=== PATIENT | male | born 1945 | race Hispanic/Latino ===

== ENCOUNTER 2017-08-17 09:49 | Inpatient (IN) | payer MEDICARE ==
[2017-08-17 11:49] VITALS: BMI 25.8
[2017-08-17] MEDS ORDERED: Lactated Ringer's 1,000 ML IV ONE ×2 (12:30→18:41)
[2017-08-17] MEDS ORDERED: Bacitracin Ointment 30 GM TUBE ONE (15:07)
[2017-08-17] MEDS ORDERED: Absorbable Gelatin Sponge Size 100 ONE (15:07)
[2017-08-17] MEDS ORDERED: Thrombin Topical 5,000 Int Units Spray Kit ONE (15:07)
--- NOTE | 2017-08-17 15:26 | CP.PCM.HP ---
History of Present Illness - History of Present Illness History of Present Illness: CC: DRAINING OP SITE L HIP HPI: 72M PMH s/p L partial hip 2013, s/p fall same hip 2016 with multiple repairs, s/p draining wound for one month, does not remember which antibiotics patient was taking prior to I/D today. Pt states draining is worsening, not responding to outpatient therapy. Pt cleared by his forest resource specialist as outpatient, recent stress test showed no ischemic changes. He is low to moderate risk for moderate risk surgery, medically stable for OR. ROS: per HPI all other systems reviewed and negative PMSH: nonobstructive CAD, nonischemic cardiomyopathy, HIV, moderate COPD, pulmonary fibrosis, HTN, HLD, BPH, L Partial Hip 2013, L hip ORIF 2016 secondary to multiple fx after fall, colon resection?, appendectomy, partial lung resection. FH: ovarian and lung CA SH: denies tobacco etoh ivdu currently. Former 2 ppd smoker for several decades , quit 9 years ago Allergies: morphine Present on Admission - Present on Admission Any Indicators Present on Admission: No Past Patient History - Past Medical History & Family History Past Medical History?: Yes - Past Social History Smoking Status: Former Smoker - CARDIAC Hx Cardiac Disorders: Yes Hx Heart Attack: Yes Hx Hypercholesterolemia: Yes Hx Hypertension: Yes Other/Comment: Claimed had 2 heart attacks before - PULMONARY Hx Respiratory Disorders: Yes Hx Pneumonia: Yes Other/Comment: scarred lung tissue left lobe, lung resection - NEUROLOGICAL Hx Neurological Disorder: No Hx Transient Ischemic Attacks (TIA): Yes - HEENT Hx HEENT Problems: No Hx Cataracts: Yes (L eye Catatract surgery) - RENAL Hx Chronic Kidney Disease: No - ENDOCRINE/METABOLIC Hx Endocrine Disorders: No - HEMATOLOGICAL/ONCOLOGICAL Hx Blood Disorders: Yes Hx Blood Transfusions: Yes Hx Human Immunodeficiency Virus (HIV): Yes (dx 2004) - INTEGUMENTARY Hx Dermatological Problems: No - MUSCULOSKELETAL/RHEUMATOLOGICAL Hx Musculoskeletal Disorders: Yes Hx Arthritis: Yes (L Hip-Had L hip replacement 2014) Hx Falls: Yes - GASTROINTESTINAL Hx Gastrointestinal Disorders: Yes Hx Bowel Surgery: Yes Hx Diverticulitis: Yes Hx Hemorrhoids: Yes - GENITOURINARY/GYNECOLOGICAL Hx Genitourinary Disorders: No Hx Prostate Problems: Yes (On Flomax) - PSYCHIATRIC Hx Psychophysiologic Disorder: No Hx Substance Use: No - SURGICAL HISTORY Hx Surgeries: Yes Hx Appendectomy: Yes (AGE 3) Hx Cardiac Catheterization: Yes Hx Orthopedic Surgery: Yes (L Hip replacement) Other/Comment: bowel resection, pneumonectomy left lobe - ANESTHESIA Hx Anesthesia: Yes Hx Anesthesia Reactions: No Hx Malignant Hyperthermia: No Has any member of the family had a problem w/ anesthesia?: No Meds Allergies/Adverse Reactions: Allergies Allergy/AdvReac Type Severity Reaction Status Date / Time morphine Allergy ITCHING Verified 08/20/16 07:57 morp Allergy Intermediate ITCHING Uncoded 08/20/16 07:57 Physical Exam - Constitutional Appears: Non-toxic, No Acute Distress - Head Exam Head Exam: ATRAUMATIC, NORMOCEPHALIC - Eye Exam Eye Exam: EOMI, Normal appearance, PERRL - ENT Exam ENT Exam: Mucous Membranes Moist, Normal Oropharynx - Respiratory Exam Respiratory Exam: Clear to Auscultation Bilateral, NORMAL BREATHING PATTERN - Cardiovascular Exam Cardiovascular Exam: RRR, +S1, +S2 - GI/Abdominal Exam GI & Abdominal Exam: Normal Bowel Sounds, Soft. absent: Mass, Organomegaly, Tenderness - Extremities Exam Extremities exam: Positive for: normal capillary refill, pedal pulses present - Back Exam Back exam: absent: CVA tenderness (L), CVA tenderness (R) - Neurological Exam Neurological exam: Alert, Oriented x3 - Psychiatric Exam Psychiatric exam: Normal Affect, Normal Mood - Skin Skin Exam: Dry, Warm Results - Vital Signs Recent Vital Signs: Last Vital Signs Temp 99.4 F 08/17/17 11:00 Pulse 83 08/17/17 11:00 Resp 18 08/17/17 11:00 BP 101/64 08/17/17 11:00 Pulse Ox 95 08/17/17 11:00 Assessment & Plan - Assessment and Plan (Free Text) Plan: 72M PMH s/p L partial hip 2013, s/p fall same hip 2016 with multiple repairs, s /p draining wound for one month, does not remember which antibiotics patient was taking prior to I/D today. Pt states draining is worsening, not responding to outpatient therapy. Pt cleared by his forest resource specialist as outpatient, recent stress test showed no ischemic changes. He is low to moderate risk for moderate risk surgery, medically stable for OR. s/p I/D L hip Ortho Consult: Dr. Gutierrez pain control IC q1h Infectious Disease consult: Dr. Acharya nonobstructive CAD, nonischemic cardiomyopathy HTN, HLD cont home meds: Carvedilol [Coreg] 6.25 mg PO BID Pravastatin Sodium [Pravachol] 80 mg PO HS Furosemide [Lasix] 20 mg PO DAILY Lisinopril [Zestril] 40 mg PO DAILY Spironolactone [Aldactone] 25 mg PO DAILY HIV cont home meds: Dolutegravir Sodium [Tivicay] 50 mg PO DAILY Emtricitabine/Tenofov Alafenam [Descovy 200-25 mg Tablet] 25 - 200 mg PO DAILY moderate COPD pulmonary fibrosis stable BPH Continue home meds: Tamsulosin [Flomax] 0.4 mg PO DAILY VTE ppx per orthopedic surgery
[2017-08-17] MEDS ORDERED: Succinylcholine 200 mg/10 ml Inj IV ONE (15:45)
[2017-08-17] MEDS ORDERED: Rocuronium 10 mg/ml (5 ml) ONE (15:45)
[2017-08-17] MEDS ORDERED: Propofol 10 mg/ml Inj (20 ML) ONE (15:45)
[2017-08-17] MEDS ORDERED: Lidocaine 1% 5ml Abboject IV ONE (15:46)
[2017-08-17] MEDS ORDERED: Vancomycin 1 g Inj IVPB ONE (18:00)
[2017-08-17] MEDS ORDERED: Gentamicin 80 mg/2mL Inj. IVPB ONE (18:00)
[2017-08-17 18:17] LABS: FLUID TYPE SYNOVIAL FLUID
[2017-08-17] MEDS ORDERED: HYDROmorphone 0.5 mg/0.5 ml ISec IVP PRN (18:53)
--- NOTE | 2017-08-17 18:59 | PCM.SURG1 ---
Surgeon's Initial Post Op Note - Surgeon's Notes Surgeon: Matt Electrologist: GLORIA Garcia Type of Anesthesia: General Endo Anesthesia Administered By: DR Cortez Pre-Operative Diagnosis: septic trcohanteric bursitis L hip Operative Findings: as above. no evidence for deep sepsis Post-Operative Diagnosis: as above Operation Performed: excision trochanteric bursa(septic). Removal hardware ( screw)- deep. excision skin, subcuateous tissue and muscle. applx wound vac. insertiobn of abio impregnated beads Specimen/Specimens Removed: bursa,skin, subcutaneous tissue/screw Estimated Blood Loss: EBL {In ML}: 25 Blood Products Given: N/A Drains Used: Wound Vac Post-Op Condition: Good Date of Surgery/Procedure: 08/17/17 Time of Surgery/Procedure: 17:15 (time in room/anaaetshesia indcution time 1650)
[2017-08-17 19:15] LABS: SYNOVIAL FLUID MONO/MACROPHAGE 1 % (0-0)
[2017-08-17 19:16] LABS: SF GROSS APPEARANCE BLOODY (CLEAR)
--- NOTE | 2017-08-17 20:33 | CP.PCM.PN ---
Subjective - Date & Time of Evaluation Date of Evaluation: 08/17/17 Time of Evaluation: 20:30 - Subjective Subjective: I D NOTE PATIENT IS IMMEDIATELY POST OP SEEN IN RECOVERY POST EXCISION TROCHANTERIC BURSA REMOVAL OF HARDWARE(SCREW) INSERTION ANTIBIOTIC BEADS STATES HAD SIGNIFICANT DRAINAGE,FEVER,CHILLS OVER PAST MONTH HAVE GIVEN I DOSE VANCOMYCIN WILL START MEROPENEM TOMORROW RE EVALUATE RX AFTER LABS DONE Objective - Vital Signs/Intake and Output Vital Signs (last 24 hours): Temp Pulse Resp BP Pulse Ox 99.1 F 84 18 125/71 95 08/17/17 19:55 08/17/17 19:55 08/17/17 19:55 08/17/17 19:55 08/17/17 19:55 Intake and Output: 08/17/17 08/18/17 18:59 06:59 Intake Total 500 Output Total 0 Balance 500 0 - Medications Medications: Current Medications Carvedilol (Coreg) 6.25 mg PO BID [facility] Dolutegravir Sodium (Tivicay) 50 mg PO DAILY [facility] Stop: 08/18/17 09:01 Furosemide (Lasix) 20 mg PO DAILY [facility] Home Med (Emtricitabine/Tenofov Alafenam [Descovy 200-25 Mg Tablet]) 25 - 200 mg PO DAILY [facility] Hydromorphone HCl (Dilaudid) 0.5 mg IVP Q15M PRN PRN Reason: Pain, severe (8-10) Stop: 08/17/17 20:53 Hydromorphone HCl (Dilaudid) 1 mg IVP Q4 PRN PRN Reason: Pain, moderate (4-7) Stop: 08/18/17 23:59 Lactated Ringer's (Lactated Ringer's) 1,000 mls @ 100 mls/hr IV .Q10H [facility] Vancomycin HCl 1 gm/ Sodium (Chloride) 250 mls @ 166.667 mls/hr IVPB ONCE ONE Stop: 08/17/17 21:55 Meropenem 500 mg/ Sodium (Chloride) 100 mls @ 100 mls/hr IVPB Q12 [facility] PRN Reason: Protocol Lisinopril (Zestril) 40 mg PO DAILY [facility] Ondansetron HCl (Zofran Inj) 4 mg IVP ONCE PRN PRN Reason: Nausea/Vomiting Stop: 08/17/17 20:54 Pravastatin Sodium (Pravachol) 80 mg PO HS [facility] Spironolactone (Aldactone) 25 mg PO DAILY [facility] Tamsulosin HCl (Flomax) 0.4 mg PO DAILY [facility]
[2017-08-17] MEDS ORDERED: Meropenem 500 MG in Sodium Chloride 0.9% 100 ML IVPB SCH (21:00)
[2017-08-17] MEDS: Lactated Ringer's 1,000 ML IV SCH (21:00)
[2017-08-17] MEDS: Pravastatin Sodium 40 MG TAB PO SCH (23:46)
[2017-08-18] MEDS: Meropenem 500 MG in Sodium Chloride 0.9% 100 ML IVPB SCH ×2 (01:40→14:02)
[2017-08-18] MEDS: Lactated Ringer's 1,000 ML IV SCH (06:35)
--- NOTE | 2017-08-18 07:59 | PQF GENQUE ---
As per previous documentation; the patient has had an undectectable low CD4 count in the past consistent with Symptomatic HIV/AIDS. This form is a permanent part of the medical record 08/18/17 Dr. Parker, Please clarify the diagnosis of HIV utilizing the following coding terminology :"Asymptomatic HIV Infection /HIV positive only" : used when no HIV infection symptoms or conditions are present..... versus "Symptomatic HIV Disease /AIDS" : this code is used for pts. who have had a prior diagnosis of an HIV- related illness or CD4 count <200 in the past; OR ...Unable to determine Documentation of HIV. Continue home meds: Tivicay and Descovy Clarification of your documentation is requested to better reflect the severity of illness and intensity of treatment of your patient. Indicators present PHYSICIAN'S RESPONSE Based on your medical judgment of the clinical indicators outlined above please clarify the following: [] Practitioner response [] If unable to determine, please check the box, sign and date. Present On Admission (POA) Indicator: [] Present at the time of admission [] Not present at the time of admission [] Clinically Undetermined In responding to this query, please exercise your independent professional judgment. The fact that a question is asked does not imply that any particular answer is desired or expected. Thank you for your clarification on this documentation. If you have any questions please call:ext [phone] * Thank you, Anh De La Torre RN CDMP [facility]
--- NOTE | 2017-08-18 08:04 | PQF GENQUE ---
Patient had postoperative urinary retention that has now resolved. This form is a permanent part of the medical record 08/18/17 Dr. Parker, Please clarify if there is an associated diagnosis or not to go along with the following documentation by nursing. Patient is S/P surgical procedure and is unable to void. Bladder scan 720 cc. Order to straight catheterize the patient and 800 cc of urine noted. Clarification of your documentation is requested to better reflect the severity of illness and intensity of treatment of your patient. Indicators present PHYSICIAN'S RESPONSE Based on your medical judgment of the clinical indicators outlined above please clarify the following: [] Practitioner response [] If unable to determine, please check the box, sign and date. Present On Admission (POA) Indicator: [] Present at the time of admission [] Not present at the time of admission [] Clinically Undetermined In responding to this query, please exercise your independent professional judgment. The fact that a question is asked does not imply that any particular answer is desired or expected. Thank you for your clarification on this documentation. If you have any questions please call:ext [phone] * Thank you, Anh De La Torre RN CD MTDD
--- NOTE | 2017-08-18 08:46 | RAD ---
PROCEDURE: Left Hip X-ray Radiographs. HISTORY: s/p hardware removal COMPARISON: None. FINDINGS: Left hip arthroplasty is seen as well as fixation plate and screws secured by cerclage wires along the lateral aspect of the left femur. Antibiotic beads are noted in the region of the greater trochanter. A small amount of expected air and fluid is seen adjacent to the left hip. No acute fracture is evident. IMPRESSION: Findings as above.
[2017-08-18 08:49] LABS: MEAN CELL VOLUME 105.5 fl (80.0-94.0); MEAN CORPUSCULAR HEMOGLOBIN 36.7 pg (27.0-31.0); MEAN CORPUSCULAR HGB CONC 34.8 g/dL (33.0-37.0); RBC 3.01 Mil/uL (4.40-5.90); RED CELL DISTRIBUTION WIDTH 12.4 % (11.5-14.5); WHITE BLOOD COUNT 5.8 K/uL (4.8-10.8)
[2017-08-18] MEDS ORDERED: TENOFOVIR ALAFENAMIDE PO SCH (09:00)
[2017-08-18] MEDS ORDERED: EMTRICITABINE PO SCH (09:00)
[2017-08-18 09:04] LABS: INR 1.2 (0.9-1.2); PARTIAL THROMBOPLASTIN TIME 29.6 Seconds (25.6-37.1); PROTHROMBIN TIME 13.8 Seconds (9.8-13.1)
[2017-08-18 09:12] LABS: BLOOD UREA NITROGEN 10 mg/dl (9-20); CALCIUM 9.2 mg/dL (8.4-10.2); GFR AFRICAN-AMERICAN > 60; GFR NON-AFRICAN AMERICAN > 60
--- NOTE | 2017-08-18 10:03 | CP.PCM.PN ---
Subjective - Date & Time of Evaluation Date of Evaluation: 08/18/17 Time of Evaluation: 10:01 - Subjective Subjective: Patient states pain is controlled. Denies CP/SOB/dizziness says he had chills overnight. Objective - Vital Signs/Intake and Output Vital Signs (last 24 hours): Temp Pulse Resp BP Pulse Ox 99.3 F 78 20 120/76 96 08/18/17 08:07 08/18/17 08:07 08/18/17 08:07 08/18/17 08:30 08/18/17 08:07 Intake and Output: 08/18/17 08/18/17 06:59 18:59 Output Total 0 Balance 0 - Medications Medications: Current Medications Carvedilol (Coreg) 6.25 mg PO BID [facility] Last Admin: 08/18/17 08:30 Dose: 6.25 mg Enoxaparin Sodium (Lovenox) 40 mg SC DAILY [facility] PRN Reason: Protocol Furosemide (Lasix) 20 mg PO DAILY [facility] Last Admin: 08/18/17 08:30 Dose: 20 mg Home Med (Emtricitabine/Tenofov Alafenam [Descovy 200-25 Mg Tablet]) 25 - 200 mg PO DAILY [facility] Hydromorphone HCl (Dilaudid) 1 mg IVP Q4 PRN PRN Reason: Pain, moderate (4-7) Stop: 08/18/17 23:59 Last Admin: 08/18/17 06:35 Dose: 1 mg Lactated Ringer's (Lactated Ringer's) 1,000 mls @ 100 mls/hr IV .Q10H [facility] Last Admin: 08/18/17 06:35 Dose: 100 mls/hr Meropenem 500 mg/ Sodium (Chloride) 100 mls @ 100 mls/hr IVPB Q12@0100,1300 [facility] PRN Reason: Protocol Last Admin: 08/18/17 01:40 Dose: 100 mls/hr Lisinopril (Zestril) 40 mg PO DAILY [facility] Last Admin: 08/18/17 08:31 Dose: 40 mg Pravastatin Sodium (Pravachol) 80 mg PO HS [facility] Last Admin: 08/17/17 23:46 Dose: Not Given Spironolactone (Aldactone) 25 mg PO DAILY [facility] Last Admin: 08/18/17 08:30 Dose: 25 mg Tamsulosin HCl (Flomax) 0.4 mg PO DAILY [facility] Last Admin: 08/18/17 08:30 Dose: 0.4 mg - Labs Labs: 08/18/17 08:39 08/18/17 08:39 PT 13.8 Seconds (9.8-13.1) H 08/18/17 08:39 INR 1.2 (0.9-1.2) 08/18/17 08:39 APTT 29.6 Seconds (25.6-37.1) 08/18/17 08:39 - Extremities Exam Additional comments: left hip: pervena wound vac intact. Functioning. +ROM ankle/toes, sensation intact A+DP/PT pulses calves soft NT neg homans Assessment and Plan (1) Trochanteric bursitis Assessment & Plan: POD#1 s/p excision of septic trochanteric bursitis, I&D, wound vac _ID note appreciated antibiotics as per ID continue wound vac PT/OT VTE proph will f/u cultures d/w Dr. Gutierrez, agrees with above Status: Acute
--- NOTE | 2017-08-18 10:52 | CP.PCM.PN ---
<Nacho Prabhakar - Last Filed: 08/18/17 14:27> Subjective - Date & Time of Evaluation Date of Evaluation: 08/18/17 Time of Evaluation: 11:00 - Subjective Subjective: Pt seen and examined at bedside. Reports no significant events s/p surgery. Pt resting comfortably in bed. Denies significant pain. Denies: cp/sob/n/v. Using bedside spirometry. Objective - Vital Signs/Intake and Output Vital Signs (last 24 hours): Temp Pulse Resp BP Pulse Ox 99.3 F 78 20 120/76 96 08/18/17 08:07 08/18/17 08:07 08/18/17 08:07 08/18/17 08:30 08/18/17 08:07 Intake and Output: 08/18/17 08/18/17 06:59 18:59 Output Total 0 Balance 0 - Medications Medications: Current Medications Carvedilol (Coreg) 6.25 mg PO BID [facility] Last Admin: 08/18/17 08:30 Dose: 6.25 mg Enoxaparin Sodium (Lovenox) 40 mg SC DAILY [facility] PRN Reason: Protocol Furosemide (Lasix) 20 mg PO DAILY [facility] Last Admin: 08/18/17 08:30 Dose: 20 mg Home Med (Emtricitabine/Tenofov Alafenam [Descovy 200-25 Mg Tablet]) 25 - 200 mg PO DAILY [facility] Hydromorphone HCl (Dilaudid) 1 mg IVP Q4 PRN PRN Reason: Pain, moderate (4-7) Stop: 08/18/17 23:59 Last Admin: 08/18/17 06:35 Dose: 1 mg Lactated Ringer's (Lactated Ringer's) 1,000 mls @ 100 mls/hr IV .Q10H [facility] Last Admin: 08/18/17 06:35 Dose: 100 mls/hr Meropenem 500 mg/ Sodium (Chloride) 100 mls @ 100 mls/hr IVPB Q12@0100,1300 [facility] PRN Reason: Protocol Last Admin: 08/18/17 01:40 Dose: 100 mls/hr Lisinopril (Zestril) 40 mg PO DAILY [facility] Last Admin: 08/18/17 08:31 Dose: 40 mg Pravastatin Sodium (Pravachol) 80 mg PO HS [facility] Last Admin: 08/17/17 23:46 Dose: Not Given Spironolactone (Aldactone) 25 mg PO DAILY [facility] Last Admin: 08/18/17 08:30 Dose: 25 mg Tamsulosin HCl (Flomax) 0.4 mg PO DAILY [facility] Last Admin: 08/18/17 08:30 Dose: 0.4 mg - Labs Labs: 08/18/17 08:39 08/18/17 08:39 PT 13.8 Seconds (9.8-13.1) H 08/18/17 08:39 INR 1.2 (0.9-1.2) 08/18/17 08:39 APTT 29.6 Seconds (25.6-37.1) 08/18/17 08:39 - Constitutional Appears: Well, No Acute Distress - Eye Exam Eye Exam: EOMI - Neck Exam Neck Exam: Full ROM - Respiratory Exam Respiratory Exam: Clear to Ausculation Bilateral, NORMAL BREATHING PATTERN. absent: Wheezes - Cardiovascular Exam Cardiovascular Exam: REGULAR RHYTHM, +S1, +S2 - GI/Abdominal Exam GI & Abdominal Exam: Soft, Normal Bowel Sounds. absent: Tenderness - Extremities Exam Extremities Exam: Normal Capillary Refill. absent: Calf Tenderness Additional comments: Wound vac in place at L lateral hip. surrounding area, dry, intact, no erythema. good seal. L foot: sensation intact thoughout. Able to move metatarsal phalanges. Inversion, eversion, dorsiflexion, plantarflexion intact. - Neurological Exam Neurological Exam: Alert, Awake, CN II-XII Intact, Oriented x3 - Psychiatric Exam Psychiatric exam: Normal Affect, Normal Mood Assessment and Plan - Assessment and Plan (Free Text) Plan: 72 yo M pmhx of nonobstructive CAD, nonischemic cardiomyopathy, HIV, COPD, pulmonary fibrosis, HTN, HLD, BPH; POD2 I&D of L hip with application of wound vac. 1) Septic Trochateric Bursitis - L partial hip in 2013 with ORIF in 2017 - POD2 (08/17/2017) Dr. Gutierrez: partial removal of hardware with I&D of L hip with application of wound vac - ID: Dr. Acharya: Picc line placed today; ivabx recommended for 3-4 weeks on Meropenem and Vancomycin; f/u wound cultures/gram stain and labs - 08/18/2017: wound cx: no growth after 24 hours - PT/OT: assistance [facility] for ambulation - Incentive spirometry - Pain management: Dilaudid 1 mg IVP Q4 PRN - f/u labs ordered: CBC/CMP, procalcitonin - Future plans to d/c to TCU and follow up with Dr. Gutierrez on Monday 2) nonobstructive CAD, nonischemic cardiomyopathy - continue home meds: Carvedolol 6.25 mg PO BID; Furosemide 20 mg PO QD; Spironolactone 25 mg PO QD - monitor vitals and f/u labs 3) HTN - continue home meds: Lisinopril 40 mg PO qDaily; Furosemide 20 mg PO QD; Spironolactone 25 mg PO QD - monitor vitals 4) dyslipidemia - continue home meds: Prevastatin Sodium 80 mg PO HS 5) HIV - continue home meds: Dolutegravir Sodium 50 mg PO QD; Emtricitabine/Tenofov Alafenam 25 - 200 mg PO QD 6) Moderate COPD - stable - monitor vitals, O2 Sat 7) Pulmonary fibrosis - stable - monitor vitals, O2 Sat 8) BPH - Continue: Tamulosin 0.4 mg PO QD 9) DVT prophylaxis - Lovenox 40 mg <Jim Parker - Last Filed: 08/18/17 16:07> Objective - Vital Signs/Intake and Output Vital Signs (last 24 hours): Temp Pulse Resp BP Pulse Ox 101 F H 68 20 127/78 95 08/18/17 15:34 08/18/17 13:45 08/18/17 13:45 08/18/17 13:45 08/18/17 13:45 Intake and Output: 08/18/17 08/18/17 06:59 18:59 Output Total 0 Balance 0 - Medications Medications: Current Medications Acetaminophen (Tylenol 325mg Tab) 650 mg PO Q6 PRN PRN Reason: Fever >100.4 F Last Admin: 08/18/17 15:34 Dose: 650 mg Carvedilol (Coreg) 6.25 mg PO BID [facility] Last Admin: 08/18/17 08:30 Dose: 6.25 mg Enoxaparin Sodium (Lovenox) 40 mg SC DAILY [facility] PRN Reason: Protocol Last Admin: 08/18/17 14:06 Dose: 40 mg Furosemide (Lasix) 20 mg PO DAILY [facility] Last Admin: 08/18/17 08:30 Dose: 20 mg Home Med (Emtricitabine/Tenofov Alafenam [Descovy 200-25 Mg Tablet]) 25 - 200 mg PO DAILY [facility] Hydromorphone HCl (Dilaudid) 1 mg IVP Q4 PRN PRN Reason: Pain, moderate (4-7) Stop: 08/18/17 23:59 Last Admin: 08/18/17 15:34 Dose: 1 mg Lactated Ringer's (Lactated Ringer's) 1,000 mls @ 100 mls/hr IV .Q10H [facility] Last Admin: 08/18/17 06:35 Dose: 100 mls/hr Meropenem 500 mg/ Sodium (Chloride) 100 mls @ 100 mls/hr IVPB Q12@0100,1300 [facility] PRN Reason: Protocol Last Admin: 08/18/17 14:02 Dose: 100 mls/hr Lisinopril (Zestril) 40 mg PO DAILY [facility] Last Admin: 08/18/17 08:31 Dose: 40 mg Pravastatin Sodium (Pravachol) 80 mg PO HS [facility] Last Admin: 08/17/17 23:46 Dose: Not Given Spironolactone (Aldactone) 25 mg PO DAILY [facility] Last Admin: 08/18/17 08:30 Dose: 25 mg Tamsulosin HCl (Flomax) 0.4 mg PO DAILY [facility] Last Admin: 08/18/17 08:30 Dose: 0.4 mg - Labs Labs: 08/18/17 08:39 08/18/17 08:39 PT 13.8 Seconds (9.8-13.1) H 08/18/17 08:39 INR 1.2 (0.9-1.2) 08/18/17 08:39 APTT 29.6 Seconds (25.6-37.1) 08/18/17 08:39 Assessment and Plan - Assessment and Plan (Free Text) Plan: ATTENDING ATTESTATION: Patient was seen and examined. I discussed the case with the resident and agree with the findings and plan as documented in the residents note. FOR DISCHARGE TO TCU ON SUNDAY 08/20 PICC LINE PLACED 08/18 CONTINUE IV ANTIBIOTICS FOR LIKELY AT LEAST [address] ACHARYA FOLLOW UP BLOOD CULTURES 08/19
--- NOTE | 2017-08-18 13:05 | RAD ---
PROCEDURE: Intraoperative Fluoroscopy. HISTORY: FLUOROSCOPY FINDINGS: Fluoroscopic assistance was provided f. 16.3 seconds fluoroscopy time utilized during this procedure. Radiation dose = 1.87 mGy. Please refer to the operative report from WILIAM Barron.
--- NOTE | 2017-08-18 13:40 | PCM.SURG1 ---
Surgeon's Initial Post Op Note - Surgeon's Notes Surgeon: Kyle Soto MD Screen Writer: NONE Type of Anesthesia: Local Pre-Operative Diagnosis: Poor venous access Operative Findings: US showed a patent right basilic vein Post-Operative Diagnosis: Poor venous access Operation Performed: Single lumen picc placement right basilic vein, 37 cm. Tip is in the SVC. Specimen/Specimens Removed: none Estimated Blood Loss: EBL {In ML}: 2 Blood Products Given: N/A Drains Used: No Drains Post-Op Condition: Fair Date of Surgery/Procedure: 08/18/17 Time of Surgery/Procedure: 13:35
[2017-08-18] MEDS: Enoxaparin 40 mg Syringe SC SCH (14:06)
--- NOTE | 2017-08-18 14:48 | VASCULAR ---
PROCEDURE: Date of procedure: 08/18/2017 Procedure: 1. Placement of a right arm PICC with ultrasound and fluoroscopic guidance, CPT 47043 2. PICC tip confirmation with spot radiograph and is in the superior vena cava Medications: 1 percent lidocaine Total Fluoro time: 1.9 seconds Radiation: 0.26 mGy EBL: 2 cc HISTORY: Infection requiring long-term IV antibiotics TECHNIQUE: Following informed consent and procedure time-out, the patient was placed supine on the interventional table and the right arm prepped and draped in the usual sterile fashion. Ultrasound showed a patent and compressible right basilic vein. After the skin was anesthetized with lidocaine, the basilic vein was accessed with micro micropuncture technique using ultrasound guidance. A guidewire was then advanced under fluoroscopic guidance into the superior vena cava. An image documenting ultrasound guidance for vascular access was permanently saved. The length of the single-lumen 4 Faroese PICC was trimmed to 37 centimeters and advanced through a peel-away sheath. The PICC was position with tip of PICC confirm a spot radiograph the superior vena cava. The PICC was secured to the patient's skin. The PICC was flushed. A biopatch and sterile dressing was applied. IMPRESSION: Placement of a single-lumen 4 Faroese PICC trimmed to 37 centimeters via right basilic vein. The tip of the PICC is confirmed with spot radiograph and is in the superior vena cava.
[2017-08-18] MEDS: Alum-Mag Hydrox-Simethicone Susp (30 mL) PO PRN (17:26)
[2017-08-18] MEDS: Pravastatin Sodium 40 MG TAB PO SCH (21:15)
[2017-08-19] MEDS: Alum-Mag Hydrox-Simethicone Susp (30 mL) PO PRN (01:54)
[2017-08-19] MEDS ORDERED: HYDROmorphone 0.5 mg/0.5 ml ISec IVP PRN (01:57)
[2017-08-19] MEDS: Meropenem 500 MG in Sodium Chloride 0.9% 100 ML IVPB SCH ×2 (01:58→12:44)
[2017-08-19] MEDS: Lactated Ringer's 1,000 ML IV SCH (02:00)
[2017-08-19 07:27] LABS: BASO % 0.5 % (0.0-2.0); EOS # 0.2 K/uL (0.0-0.7); EOS % 3.5 % (0.0-4.0); HEMOGLOBIN 10.7 g/dL (12.0-18.0); LYMPH # 1.6 K/uL (1.0-4.3); LYMPH % 27.5 % (20.0-40.0); MEAN CELL VOLUME 104.8 fl (80.0-94.0); MEAN CORPUSCULAR HEMOGLOBIN 36.6 pg (27.0-31.0); MEAN PLATELET VOLUME 7.8 fl (7.2-11.7); MONO # 0.7 K/uL (0.0-0.8); MONO % 11.5 % (0.0-10.0); NEUT # 3.2 K/uL (1.8-7.0); NRBC % 0.1 % (0.0-0.0); RBC 2.92 Mil/uL (4.40-5.90); RED CELL DISTRIBUTION WIDTH 12.5 % (11.5-14.5); WHITE BLOOD COUNT 5.7 K/uL (4.8-10.8)
[2017-08-19 07:38] LABS: BLOOD UREA NITROGEN 10 mg/dl (9-20); CALCIUM 9.7 mg/dL (8.4-10.2); GFR AFRICAN-AMERICAN > 60; GFR NON-AFRICAN AMERICAN 60
[2017-08-19] MEDS: Enoxaparin 40 mg Syringe SC SCH (08:54)
--- NOTE | 2017-08-19 11:02 | CP.PCM.PN ---
Subjective - Date & Time of Evaluation Date of Evaluation: 08/19/17 Time of Evaluation: 12:30 - Subjective Subjective: Patient seen and examined bedside. Feeling well. Pain is controlled .With some muscular discomfort just under the rib cage.Tmax 101 last 24 hours No acute issues overnight Objective - Vital Signs/Intake and Output Vital Signs (last 24 hours): Temp Pulse Resp BP Pulse Ox 98.2 F 79 18 98/63 L 95 08/19/17 08:11 08/19/17 08:11 08/19/17 08:11 08/19/17 08:11 08/19/17 08:11 - Medications Medications: Current Medications Acetaminophen (Tylenol 325mg Tab) 650 mg PO Q6 PRN PRN Reason: Fever >100.4 F Last Admin: 08/18/17 15:34 Dose: 650 mg Al Hydrox/Mg Hydrox/Simethicone (Maalox Plus 30 Ml) 30 ml PO Q6 PRN PRN Reason: Indigestion / Heartburn Last Admin: 08/19/17 01:54 Dose: 30 ml Carvedilol (Coreg) 6.25 mg PO BID [facility] Last Admin: 08/18/17 16:48 Dose: 6.25 mg Enoxaparin Sodium (Lovenox) 40 mg SC DAILY [facility] PRN Reason: Protocol Last Admin: 08/19/17 08:54 Dose: 40 mg Furosemide (Lasix) 20 mg PO DAILY [facility] Last Admin: 08/18/17 08:30 Dose: 20 mg Home Med (Emtricitabine/Tenofov Alafenam [Descovy 200-25 Mg Tablet]) 25 - 200 mg PO DAILY [facility] Hydromorphone HCl (Dilaudid) 1 mg IVP Q4 PRN PRN Reason: Pain, moderate (4-7) Last Admin: 08/19/17 02:17 Dose: 1 mg Lactated Ringer's (Lactated Ringer's) 1,000 mls @ 100 mls/hr IV .Q10H [facility] Last Admin: 08/19/17 02:00 Dose: Not Given Meropenem 500 mg/ Sodium (Chloride) 100 mls @ 100 mls/hr IVPB Q12@0100,1300 [facility] PRN Reason: Protocol Last Admin: 08/19/17 01:58 Dose: 100 mls/hr Lisinopril (Zestril) 40 mg PO DAILY [facility] Last Admin: 08/18/17 08:31 Dose: 40 mg Pravastatin Sodium (Pravachol) 80 mg PO HS [facility] Last Admin: 08/18/17 21:15 Dose: 80 mg Spironolactone (Aldactone) 25 mg PO DAILY [facility] Last Admin: 08/18/17 08:30 Dose: 25 mg Tamsulosin HCl (Flomax) 0.4 mg PO DAILY [facility] Last Admin: 08/19/17 08:52 Dose: 0.4 mg - Labs Labs: 08/19/17 05:30 08/19/17 05:30 PT 13.8 Seconds (9.8-13.1) H 08/18/17 08:39 INR 1.2 (0.9-1.2) 08/18/17 08:39 APTT 29.6 Seconds (25.6-37.1) 08/18/17 08:39 - Constitutional Appears: Non-toxic, No Acute Distress - Head Exam Head Exam: ATRAUMATIC, NORMAL INSPECTION, NORMOCEPHALIC - Eye Exam Eye Exam: EOMI, Normal appearance, PERRL Pupil Exam: NORMAL ACCOMODATION - ENT Exam ENT Exam: Mucous Membranes Moist, Normal Exam - Neck Exam Neck Exam: Full ROM, Normal Inspection - Respiratory Exam Respiratory Exam: Clear to Ausculation Bilateral, NORMAL BREATHING PATTERN. absent: Rales, Wheezes, Respiratory Distress - Cardiovascular Exam Cardiovascular Exam: REGULAR RHYTHM, RRR, +S1, +S2. absent: JVD - GI/Abdominal Exam GI & Abdominal Exam: Soft, Normal Bowel Sounds. absent: Distended, Guarding, Tenderness, Rebound - Rectal Exam Rectal Exam: Deferred - Extremities Exam Extremities Exam: absent: Calf Tenderness, Pedal Edema Additional comments: left hip surgical incision with dressing and hemovac in place - Back Exam Back Exam: NORMAL INSPECTION - Neurological Exam Neurological Exam: Alert, Awake, CN II-XII Intact, Oriented x3 - Psychiatric Exam Psychiatric exam: Normal Affect, Normal Mood - Skin Skin Exam: Dry, Intact, Normal Color, Warm Assessment and Plan - Assessment and Plan (Free Text) Assessment: 72 yo M pmhx of nonobstructive CAD, nonischemic cardiomyopathy, HIV, COPD, pulmonary fibrosis, HTN, HLD, BPH admitted for septic trochanteric bursitis and underwent partial removal of hardware with I& D of left hip with application of wound vac . At present Post op day 2 , doing well. Tax 101 Id consulted and recommended 6 weeks of IV antibiotics Wound and blood cultures sent. On meropenem and vanco IV at present Plan for d/c to TCU for continuation of IV antibiotics and physical therapy. 1.Septic Trochateric Bursitis history of L partial hip in 2013 with ORIF in [address] Gutierrez s/p partial removal of hardware with I&D of L hip with application of wound vac ID consulted Dr. 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 HTN continue home meds: Lisinopril 40 mg PO qDaily; Furosemide 20 mg PO QD; Spironolactone 25 mg PO QD 4.Dyslipidemia on Prevastatin Sodium 80 mg PO HS 5. HIV continue home meds: Dolutegravir Sodium 50 mg PO QD; Emtricitabine/Tenofov Alafenam 25 - 200 mg PO QD 6. Moderate COPD stable incentive spirometry 7.Pulmonary fibrosis stable 8. BPH Continue: Tamulosin 0.4 mg PO QD\ 9 Acute blood loss anemia monitor for now 10.DVT prophylaxis Lovenox 40 mg
--- NOTE | 2017-08-19 11:03 | CP.PCM.PN ---
Subjective - Date & Time of Evaluation Date of Evaluation: 08/19/17 Time of Evaluation: 10:15 - Subjective Subjective: S- pt comfortable/minimal post op discomfort Objective - Vital Signs/Intake and Output Vital Signs (last 24 hours): Temp Pulse Resp BP Pulse Ox 98.2 F 79 18 98/63 L 95 08/19/17 08:11 08/19/17 08:11 08/19/17 08:11 08/19/17 08:11 08/19/17 08:11 - Medications Medications: Current Medications Acetaminophen (Tylenol 325mg Tab) 650 mg PO Q6 PRN PRN Reason: Fever >100.4 F Last Admin: 08/18/17 15:34 Dose: 650 mg Al Hydrox/Mg Hydrox/Simethicone (Maalox Plus 30 Ml) 30 ml PO Q6 PRN PRN Reason: Indigestion / Heartburn Last Admin: 08/19/17 01:54 Dose: 30 ml Carvedilol (Coreg) 6.25 mg PO BID [facility] Last Admin: 08/18/17 16:48 Dose: 6.25 mg Enoxaparin Sodium (Lovenox) 40 mg SC DAILY [facility] PRN Reason: Protocol Last Admin: 08/19/17 08:54 Dose: 40 mg Furosemide (Lasix) 20 mg PO DAILY [facility] Last Admin: 08/18/17 08:30 Dose: 20 mg Home Med (Emtricitabine/Tenofov Alafenam [Descovy 200-25 Mg Tablet]) 25 - 200 mg PO DAILY [facility] Hydromorphone HCl (Dilaudid) 1 mg IVP Q4 PRN PRN Reason: Pain, moderate (4-7) Last Admin: 08/19/17 02:17 Dose: 1 mg Lactated Ringer's (Lactated Ringer's) 1,000 mls @ 100 mls/hr IV .Q10H [facility] Last Admin: 08/19/17 02:00 Dose: Not Given Meropenem 500 mg/ Sodium (Chloride) 100 mls @ 100 mls/hr IVPB Q12@0100,1300 [facility] PRN Reason: Protocol Last Admin: 08/19/17 01:58 Dose: 100 mls/hr Lisinopril (Zestril) 40 mg PO DAILY [facility] Last Admin: 08/18/17 08:31 Dose: 40 mg Pravastatin Sodium (Pravachol) 80 mg PO HS [facility] Last Admin: 08/18/17 21:15 Dose: 80 mg Spironolactone (Aldactone) 25 mg PO DAILY [facility] Last Admin: 08/18/17 08:30 Dose: 25 mg Tamsulosin HCl (Flomax) 0.4 mg PO DAILY [facility] Last Admin: 08/19/17 08:52 Dose: 0.4 mg - Labs Labs: 08/19/17 05:30 08/19/17 05:30 PT 13.8 Seconds (9.8-13.1) H 08/18/17 08:39 INR 1.2 (0.9-1.2) 08/18/17 08:39 APTT 29.6 Seconds (25.6-37.1) 08/18/17 08:39 - Skin Additional comments: Objective \ stance/gait-defrred R hip wound benign N/V intact\ no gross deficits orthoipoedically stable Assessment and Plan - Assessment and Plan (Free Text) Assessment: A- s/p hardware removable- successful I+D P- IV abios/orthopedically stable for d/c
--- NOTE | 2017-08-19 16:16 | CP.PCM.PN ---
Subjective - Date & Time of Evaluation Date of Evaluation: 08/19/17 Time of Evaluation: 16:02 - Subjective Subjective: I D NOTE FULL CONSULT DICTATED DISCUSSED HIV medications(ARVs) c HIM ON DESCOVY/TIVICAY ,MAY BE ABLE TO GET TIVICAY FROM OUR PHARMACY([facility] -[facility]).HE WILL POSSIBLY RECEIVE DESCOVY FROM OUTPATIENT PHARMACY, HAVE WRITTEN PRESCRIPTIONS. PATIENT UNABLE TO HAVE HIS PERSONAL MEDS BROUGHT HERE HE LIVES ALONE HAD FEVER YESTERDAY THERE IS EVIDENCE OF RENAL INSUFFICIENCY,WILL RX C DAPTOMYCIN NOT VANCOMYCIN AND GIVE TRUVADA IN PLACE OF DESCOVY PRESENTLY. USING TRUVADA c VANCOMYCIN WOULD BE CONSIDERABLY MORE NEPHROTOXIC HOPEFULLY SOME ARRANGEMENT CAN BE MADE FOR OBTAINING DESCOVY AND CONTINUING TIVICAY Objective - Vital Signs/Intake and Output Vital Signs (last 24 hours): Temp Pulse Resp BP Pulse Ox 99.9 F H 92 H 18 122/73 98 08/19/17 15:53 08/19/17 15:53 08/19/17 15:53 08/19/17 15:53 08/19/17 15:53 - Medications Medications: Current Medications Acetaminophen (Tylenol 325mg Tab) 650 mg PO Q6 PRN PRN Reason: Fever >100.4 F Last Admin: 08/18/17 15:34 Dose: 650 mg Al Hydrox/Mg Hydrox/Simethicone (Maalox Plus 30 Ml) 30 ml PO Q6 PRN PRN Reason: Indigestion / Heartburn Last Admin: 08/19/17 01:54 Dose: 30 ml Carvedilol (Coreg) 6.25 mg PO BID [facility] Last Admin: 08/18/17 16:48 Dose: 6.25 mg Dolutegravir Sodium (Tivicay) 50 mg PO DAILY [facility] Enoxaparin Sodium (Lovenox) 40 mg SC DAILY [facility] PRN Reason: Protocol Last Admin: 08/19/17 08:54 Dose: 40 mg Furosemide (Lasix) 20 mg PO DAILY [facility] Last Admin: 08/18/17 08:30 Dose: 20 mg Home Med (Emtricitabine/Tenofov Alafenam [Descovy 200-25 Mg Tablet]) 25 - 200 mg PO DAILY [facility] Hydromorphone HCl (Dilaudid) 1 mg IVP Q4 PRN PRN Reason: Pain, moderate (4-7) Last Admin: 08/19/17 12:38 Dose: 1 mg Lactated Ringer's (Lactated Ringer's) 1,000 mls @ 100 mls/hr IV .Q10H [facility] Last Admin: 08/19/17 02:00 Dose: Not Given Meropenem 500 mg/ Sodium (Chloride) 100 mls @ 100 mls/hr IVPB Q12@0100,1300 [facility] PRN Reason: Protocol Last Admin: 08/19/17 12:44 Dose: 100 mls/hr Lisinopril (Zestril) 40 mg PO DAILY [facility] Last Admin: 08/18/17 08:31 Dose: 40 mg Pravastatin Sodium (Pravachol) 80 mg PO HS [facility] Last Admin: 08/18/17 21:15 Dose: 80 mg Spironolactone (Aldactone) 25 mg PO DAILY [facility] Last Admin: 08/19/17 08:50 Dose: 25 mg Tamsulosin HCl (Flomax) 0.4 mg PO DAILY [facility] Last Admin: 08/19/17 08:52 Dose: 0.4 mg - Labs Labs: 08/19/17 05:30 08/19/17 05:30 PT 13.8 Seconds (9.8-13.1) H 08/18/17 08:39 INR 1.2 (0.9-1.2) 08/18/17 08:39 APTT 29.6 Seconds (25.6-37.1) 08/18/17 08:39
[2017-08-19] MEDS ORDERED: DAPTOmycin 500 MG in Sodium Chloride 0.9% 100 ML IV SCH (17:00)
[2017-08-19] MEDS: Emtricitabine-Tenofovir 200 mg-300 mg Tab PO SCH (18:42)
[2017-08-19] MEDS: Pravastatin Sodium 40 MG TAB PO SCH (21:33)
[2017-08-20] MEDS: Meropenem 500 MG in Sodium Chloride 0.9% 100 ML IVPB SCH ×2 (00:44→13:00)
--- NOTE | 2017-08-20 03:00 | CON ---
INFECTIOUS DISEASE CONSULTATION DATE: 08/19/2017 The patient was initially seen immediately postoperatively in the recovery room today on 08/17/2017. Consult being dictated on 08/19/2017. HISTORY OF PRESENT ILLNESS: The patient is a 72-year-old male who is status post total hip in 2013, fell on the same hip in 2017, and has had multiple surgeries since then. He has had a draining wound for one month. The patient states that he had seen Dr. Gutierrez and subsequently that day he felt something tear and there was discharge of a creamy, sticky fluid. The patient stated that he had fever and chills ever since that point in time. It was not at all responding to anything that was given to him for antibiotics and he does not remember names The patient also has a history of CAD, cardiomyopathy, COPD, pulmonary fibrosis, hypertension, and BPH. The left hip ORIF was in 2017, again secondary to multiple falls. He had a colon resection possibly in past and a partial lung resection also. The patient also has HIV where he is being seen at the [facility] (formerly [facility]) and he is on Descovy and Tivicay. States from his knowledge last CD4 count was over 700 and he thinks his viral load was undetectable. Had been a two-pack per day smoker for several decades, quit 9 years ago. No IV drug use. The patient had on 08/17/2017, an excision of septic trochanteric bursitis, an I and D, has a wound VAC. PHYSICAL EXAMINATION: GENERAL: The patient is a pleasant and alert 72-year-old male who is oriented to time and place. HEENT: Within normal limits. NECK: Supple. HEART: Regular sinus rhythm. LUNGS: Clear with normal breathing pattern. ABDOMEN: Soft. Positive bowel sounds. EXTREMITIES: Left lower extremity has wound VAC on the hip and right leg no CCE. ASSESSMENT AND PLAN: At this point in time, I have ordered IV vancomycin 1 g, IV piggyback q.12 hours, and meropenem 500 mg IV piggyback q.12 hours. He will need this for at least 6 weeks. We will follow the renal function and vancomycin troughs for any adjustments that need to be made on the antibiotics. Of note, also the patient needs to be replaced on his ARVs which are Descovy and Tivicay, when he is at home and has no access nor anyone else that has access to getting, we will attempt to make appropriate arrangements through pharmacy. Barron Acharya MD [facility]
[2017-08-20 07:24] LABS: ALB/GLOB RATIO 0.8 (1.0-2.1); ALBUMIN 3.4 g/dL (3.5-5.0); ALT/SGPT 15 U/L (21-72); AST/SGOT 27 U/L (17-59); BLOOD UREA NITROGEN 10 mg/dl (9-20); CALCIUM 9.5 mg/dL (8.4-10.2); GFR AFRICAN-AMERICAN > 60; GFR NON-AFRICAN AMERICAN > 60
[2017-08-20 07:27] LABS: HEMOGLOBIN 10.9 g/dL (12.0-18.0); MEAN CORPUSCULAR HEMOGLOBIN 36.3 pg (27.0-31.0); MEAN CORPUSCULAR HGB CONC 34.5 g/dL (33.0-37.0); RED CELL DISTRIBUTION WIDTH 12.4 % (11.5-14.5); WHITE BLOOD COUNT 6.1 K/uL (4.8-10.8)
[2017-08-20 07:28] LABS: MEAN CELL VOLUME 105.2 fl (80.0-94.0)
[2017-08-20 07:58] VITALS: RESP 20
[2017-08-20] MEDS: Enoxaparin 40 mg Syringe SC SCH (09:00)
[2017-08-20] MEDS: Emtricitabine-Tenofovir 200 mg-300 mg Tab PO SCH (09:01)
--- NOTE | 2017-08-20 12:59 | CP.PCM.PN ---
Subjective - Date & Time of Evaluation Date of Evaluation: 08/20/17 Time of Evaluation: 12:45 - Subjective Subjective: I D NOTE CREATININE:1.1 INTRAOPERATIVE CULTURE FROM KNEE AND FLUID DRAINED ALL GREW STAPH EPIDERMIS MICs for VANCOMYCIN ARE 2 WHICH IS SENSITIVE BUT NOT THE BEST FOR THIS CLINICAL SITUATION (THR) WILL CONTINUE DAPTOMYCIN POSSIBLY CHANGE TO DAILY PENDING STATUS OF RENAL FUNCTION RECEIVING TRUVADA/TIVICAY FOR PRESENT. Objective - Vital Signs/Intake and Output Vital Signs (last 24 hours): Temp Pulse Resp BP Pulse Ox 98.5 F 80 20 95/56 L 95 08/20/17 07:57 08/20/17 09:02 08/20/17 07:57 08/20/17 09:02 08/20/17 07:57 - Medications Medications: Current Medications Acetaminophen (Tylenol 325mg Tab) 650 mg PO Q6 PRN PRN Reason: Fever >100.4 F Last Admin: 08/18/17 15:34 Dose: 650 mg Al Hydrox/Mg Hydrox/Simethicone (Maalox Plus 30 Ml) 30 ml PO Q6 PRN PRN Reason: Indigestion / Heartburn Last Admin: 08/19/17 01:54 Dose: 30 ml Carvedilol (Coreg) 6.25 mg PO BID [facility] Last Admin: 08/20/17 08:58 Dose: Not Given Docusate Sodium (Colace) 100 mg PO BID [facility] Dolutegravir Sodium (Tivicay) 50 mg PO QPM [facility] Last Admin: 08/19/17 18:43 Dose: 50 mg Emtricitabine/Tenofovir (Truvada 200 Mg-300 Mg) 1 tab PO DAILY [facility] Last Admin: 08/20/17 09:01 Dose: 1 tab Enoxaparin Sodium (Lovenox) 40 mg SC DAILY [facility] PRN Reason: Protocol Last Admin: 08/20/17 09:00 Dose: 40 mg Furosemide (Lasix) 20 mg PO DAILY [facility] Last Admin: 08/19/17 17:12 Dose: 20 mg Hydromorphone HCl (Dilaudid) 1 mg IVP Q4 PRN PRN Reason: Pain, moderate (4-7) Last Admin: 08/19/17 21:31 Dose: 1 mg Lactated Ringer's (Lactated Ringer's) 1,000 mls @ 100 mls/hr IV .Q10H [facility] Last Admin: 08/19/17 02:00 Dose: Not Given Meropenem 500 mg/ Sodium (Chloride) 100 mls @ 100 mls/hr IVPB Q12@0100,1300 [facility] PRN Reason: Protocol Last Admin: 08/20/17 00:44 Dose: 100 mls/hr Daptomycin 500 mg/ Sodium (Chloride) 100 mls @ 100 mls/hr IV Q48H [facility] PRN Reason: Protocol Stop: 08/24/17 17:01 Last Admin: 08/19/17 18:43 Dose: 100 mls/hr Lisinopril (Zestril) 40 mg PO DAILY [facility] Last Admin: 08/20/17 09:02 Dose: Not Given Pravastatin Sodium (Pravachol) 80 mg PO HS [facility] Last Admin: 08/19/17 21:33 Dose: 80 mg Spironolactone (Aldactone) 25 mg PO DAILY [facility] Last Admin: 08/20/17 08:58 Dose: 25 mg Tamsulosin HCl (Flomax) 0.4 mg PO DAILY [facility] Last Admin: 08/20/17 08:59 Dose: 0.4 mg - Labs Labs: 08/20/17 05:30 08/20/17 05:30 PT 13.8 Seconds (9.8-13.1) H 08/18/17 08:39 INR 1.2 (0.9-1.2) 08/18/17 08:39 APTT 29.6 Seconds (25.6-37.1) 08/18/17 08:39
--- NOTE | 2017-08-20 15:06 | CP.PCM.DIS ---
Provider - Provider Date of Admission: 08/17/17 20:14 Attending physician: Carolyn Brewster DO Primary care physician: Chavez Gutierrez III, MD Consults: ortho consult ID consult Pt consult Time Spent in preparation of Discharge (in minutes): 15 Hospital Course - Lab Results Lab Results: Micro Results 08/17/17 18:00 Hip - Left Gram Stain - Final 08/17/17 18:00 Hip - Left Wound Culture - Final Staphylococcus Epidermidis 08/17/17 18:00 Hip - Left Gram Stain - Final 08/17/17 18:00 Hip - Left Anaerobic Culture - Final NO ANAEROBES ISOLATED. 08/17/17 18:00 Hip - Left Wound Culture - Final Staphylococcus Epidermidis 08/17/17 18:00 Body Fluid - Hip-Left Gram Stain - Final 08/17/17 18:00 Body Fluid - Hip-Left Anaerobic Culture - Final NO ANAEROBES ISOLATED. 08/17/17 18:00 Body Fluid - Hip-Left Body Fluid Culture - Final Staphylococcus Epidermidis 08/17/17 18:00 Hip - Left Gram Stain - Final 08/17/17 18:00 Hip - Left Wound Culture - Final Coagulase Neg Staphylococcus 08/17/17 18:00 Hip - Left Gram Stain - Final 08/17/17 18:00 Hip - Left Wound Culture - Final Coagulase Neg Staphylococcus 08/17/17 18:00 Hip - Left Gram Stain - Final 08/17/17 18:00 Hip - Left Wound Culture - Final Coagulase Neg Staphylococcus 08/17/17 18:00 Hip - Left Gram Stain - Final 08/17/17 18:00 Hip - Left Wound Culture - Final Coagulase Neg Staphylococcus 08/17/17 18:00 Hip - Left Gram Stain - Final 08/17/17 18:00 Hip - Left Wound Culture - Final Coagulase Neg Staphylococcus 08/17/17 18:00 Hip - Left Gram Stain - Final 08/17/17 18:00 Hip - Left Wound Culture - Final Coagulase Neg Staphylococcus 08/17/17 18:00 Hip - Left Gram Stain - Final 08/17/17 18:00 Hip - Left Wound Culture - Final Coagulase Neg Staphylococcus 08/17/17 18:00 Hip - Left Gram Stain - Final 08/17/17 18:00 Hip - Left Anaerobic Culture - Final NO ANAEROBES ISOLATED. 08/17/17 18:00 Hip - Left Wound Culture - Final Coagulase Neg Staphylococcus 08/17/17 18:00 Hip - Left Gram Stain - Final 08/17/17 18:00 Hip - Left Wound Culture - Final Coagulase Neg Staphylococcus 08/17/17 18:00 Hip - Left Gram Stain - Final 08/17/17 18:00 Hip - Left Wound Culture - Final Coagulase Neg Staphylococcus 08/17/17 18:00 Hip - Left Gram Stain - Final 08/17/17 18:00 Hip - Left Wound Culture - Final Coagulase Neg Staphylococcus 08/17/17 18:00 Hip - Left Gram Stain - Final 08/17/17 18:00 Hip - Left Wound Culture - Final Coagulase Neg Staphylococcus 08/17/17 18:00 Hip - Left Gram Stain - Final 08/17/17 18:00 Hip - Left Wound Culture - Final Coagulase Neg Staphylococcus 08/17/17 18:00 Hip - Left Gram Stain - Final 08/17/17 18:00 Hip - Left Wound Culture - Final Coagulase Neg Staphylococcus 08/17/17 18:00 Other: Please Indicate Mycobacterial Culture - Preliminary Most Recent Lab Values WBC 6.1 K/uL (4.8-10.8) 08/20/17 05:30 RBC 3.00 Mil/uL (4.40-5.90) L 08/20/17 05:30 Hgb 10.9 g/dL (12.0-18.0) L 08/20/17 05:30 Hct 31.6 % (35.0-51.0) L 08/20/17 05:30 MCV 105.2 fl (80.0-94.0) H 08/20/17 05:30 MCH 36.3 pg (27.0-31.0) H 08/20/17 05:30 MCHC 34.5 g/dL (33.0-37.0) 08/20/17 05:30 RDW 12.4 % (11.5-14.5) 08/20/17 05:30 Plt Count 205 K/uL (130-400) 08/20/17 05:30 MPV 7.8 fl (7.2-11.7) 08/19/17 05:30 Neut % (Auto) 57.0 % (50.0-75.0) 08/19/17 05:30 Lymph % (Auto) 27.5 % (20.0-40.0) 08/19/17 05:30 [place] % (Auto) 11.5 % (0.0-10.0) H 08/19/17 05:30 Eos % (Auto) 3.5 % (0.0-4.0) 08/19/17 05:30 Baso % (Auto) 0.5 % (0.0-2.0) 08/19/17 05:30 Neut # (Auto) 3.2 K/uL (1.8-7.0) 08/19/17 05:30 Lymph # (Auto) 1.6 K/uL (1.0-4.3) 08/19/17 05:30 [place] # (Auto) 0.7 K/uL (0.0-0.8) 08/19/17 05:30 Eos # (Auto) 0.2 K/uL (0.0-0.7) 08/19/17 05:30 Baso # (Auto) 0.0 K/uL (0.0-0.2) 08/19/17 05:30 PT 13.8 Seconds (9.8-13.1) H 08/18/17 08:39 INR 1.2 (0.9-1.2) 08/18/17 08:39 APTT 29.6 Seconds (25.6-37.1) 08/18/17 08:39 Sodium 129 mmol/l (132-148) L 08/20/17 05:30 Potassium 3.6 MMOL/L (3.6-5.0) 08/20/17 05:30 Chloride 93 mmol/L (98-107) L 08/20/17 05:30 Carbon Dioxide 29 mmol/L (22-30) 08/20/17 05:30 Anion Gap 11 (10-20) 08/20/17 05:30 BUN 10 mg/dl (9-20) 08/20/17 05:30 Creatinine 1.1 mg/dl (0.8-1.5) 08/20/17 05:30 Est GFR ( Amer) > 60 08/20/17 05:30 Est GFR (Non-Af Amer) > 60 08/20/17 05:30 Random Glucose 113 mg/dL (75-110) H 08/20/17 05:30 Calcium 9.5 mg/dL (8.4-10.2) 08/20/17 05:30 Total Bilirubin 0.7 mg/dl (0.2-1.3) 08/20/17 05:30 AST 27 U/L (17-59) 08/20/17 05:30 ALT 15 U/L (21-72) L 08/20/17 05:30 Alkaline Phosphatase 54 U/L (38-126) 08/20/17 05:30 Total Protein 7.6 G/DL (6.3-8.2) 08/20/17 05:30 Albumin 3.4 g/dL (3.5-5.0) L 08/20/17 05:30 Globulin 4.2 gm/dL (2.2-3.9) H 08/20/17 05:30 Albumin/Globulin Ratio 0.8 (1.0-2.1) L 08/20/17 05:30 Procalcitonin < 0.05 NG/ML (0.19-0.49) L 08/17/17 08:39 Fluid Type Synovial fluid 08/17/17 15:51 Synovial WBC 16821.0 /mm3 (0.0-150.0) H 08/17/17 15:51 Synovial RBC 766005.0 /mm3 (0.0-0.0) H 08/17/17 15:51 Synovial Neutrophils 97.0 % (0-0) H 08/17/17 15:51 Synovial Lymphocytes 2.0 % (0-0) H 08/17/17 15:51 Synov Monos/Macrophage 1 % (0-0) H 08/17/17 15:51 - Hospital Course Hospital Course: 72 yo M pmhx of nonobstructive CAD, nonischemic cardiomyopathy, HIV, COPD, pulmonary fibrosis, HTN, HLD, BPH admitted for septic trochanteric bursitis and underwent partial removal of hardware with I& D of left hip with application of wound vac . At present Post op day 3 , doing well. Tmax 99.9 Cultures from left hip all growing Staph coag negative ID consulted and recommended 6 weeks of IV antibiotics On meropenem and daptomycin IV Q48 hours. Momnitor renal function closely Plan for d/c to TCU for continuation of IV antibiotics and physical therapy today 1.Septic Trochateric Bursitis history of L partial hip in 2013 with ORIF in [address] Gtuierrez s/p partial removal of hardware with I&D of L hip with application of wound vac ID consulted Dr. Acharya and recommended rn nursery IV antibiotics Wound cx positive for Staph Coag negative on meropenem and Daptomycin IV. monitor renal function D/c to TCU for PT and IV antibiotics today Incentive spirometry Pain management 2.Non obstructive CAD, non ischemic cardiomyopathy continue home meds: Carvedilol 6.25 mg PO BID; Furosemide 20 mg PO QD; Spironolactone 25 mg PO QD 3. HTN continue home meds: Lisinopril 40 mg PO qDaily; Furosemide 20 mg PO QD; Spironolactone 25 mg PO QD 4.Dyslipidemia on Prevastatin Sodium 80 mg PO HS 5. HIV continue home meds: Dolutegravir Sodium 50 mg PO QD; Emtricitabine/Tenofov Alafenam 25 - 200 mg PO QD 6. Moderate COPD stable incentive spirometry 7.Pulmonary fibrosis stable 8. BPH Continue: Tamulosin 0.4 mg PO QD\ 9 Acute blood loss anemia monitor for now 10.DVT prophylaxis Lovenox 40 mg Discharge Exam - Head Exam Head Exam: ATRAUMATIC, NORMAL INSPECTION, NORMOCEPHALIC - Eye Exam Eye Exam: EOMI, Normal appearance, PERRL Pupil Exam: NORMAL ACCOMODATION - ENT Exam ENT Exam: Mucous Membranes Moist, Normal Exam - Neck Exam Neck exam: Full Rom, Normal Inspection - Respiratory Exam Respiratory Exam: Clear to PA & Lateral, NORMAL BREATHING PATTERN. absent: Rales, Rhonchi, Wheezes - Cardiovascular Exam Cardiovascular Exam: REGULAR RHYTHM, RRR, +S1, +S2. absent: JVD - GI/Abdominal Exam GI & Abdominal Exam: Normal Bowel Sounds, Soft. absent: Distended, Guarding, Rebound, Tenderness - Rectal Exam Rectal Exam: Deferred - Extremities Exam Extremities exam: pedal pulses present Additional comments: left hip surgical wound with dressing and wound vac in place - Back Exam Back exam: NORMAL INSPECTION - Neurological Exam Neurological exam: Alert, CN II-XII Intact, Oriented x3, Reflexes Normal - Psychiatric Exam Psychiatric exam: Normal Affect, Normal Mood - Skin Skin Exam: Dry, Intact, Normal Color, Warm Discharge Plan - Discharge Medications Prescriptions: Daptomycin 500 mg IV Q2D 42 Days vial Meropenem [Premierpro Rx Meropenem] 1 gm IV Q12 #84 vial oxyCODONE/Acetaminophen [Percocet 5/325 mg Tab] 1 ea PO Q4 PRN #30 tab PRN Reason: Pain, Severe (8-10) - Follow Up Plan Condition: GOOD Disposition: TRANSF TO SNF Patient education suggested?: Yes Instructions: Peripherally-Inserted Central Catheter, Bursitis (DC) Referrals: Chavez Gutierrez III, MD [Primary Care Provider] -
[2017-08-20 16:18] VITALS: PULSE 81
[2017-08-20 16:19] VITALS: BP 107/72; TEMP 99.1; O2SAT 99
[2017-08-20] MEDS: Pravastatin Sodium 40 MG TAB PO SCH (21:16)
--- NOTE | 2017-08-21 09:38 | OP ---
PROCEDURE DATE: 08/17/2017 LOCATION: [facility] (Formerly [facility]). PREOPERATIVE DIAGNOSES: 1. Superficial drainage of left hip in the region of the trochanteric bursa. 2. Migration of hardware (screw) trochanteric bursa. 3. Superficial sepsis, left hip, septic trochanteric bursa. POSTOPERATIVE DIAGNOSES: 1. Superficial sepsis, left hip, septic trochanteric bursa. 2. Rule out deep sepsis. 3. Prominent hardware, left hip. PROCEDURE: 1. Excision of trochanteric bursa. 2. Arthrotomy, incision and drainage, culture and biopsy. 3. Removal of hardware, deep. 4. Aspiration of the hip. 5. Application of wound VAC. 6. Insertion of antibiotic impregnated granules. 7. Excision of skin, subcutaneous tissue and muscle. 8. Positioning of fluoroscope interpretation of video images. SURGEON: Chavez Gutierrez MD MANAGER SAFE: Jennifer Patel, certified registered nursing dam tender assistant, who was essential to the completion of this operation, each progression of the operation, and the ultimate conclusion and achievement of operative goal. ANESTHESIA: General endotracheal anesthesia, Dr. Cortez. BLOOD LOSS: Approximately 35 mL. COMPLICATIONS: No complications. DRAINS: Wound VAC drain. OPERATIVE INDICATION: Teodoro Rojas is a gentleman well known to my practice. The patient had undergone a total hip replacement several years ago at [facility]. The patient about 15 months ago had presented with a periprosthetic [place] II periprosthetic femur fracture with an intact prosthesis. Open reduction and internal fixation was successfully accomplished. Fracture has healed, no problem. The patient spontaneously developed drainage from the trochanteric bursa several weeks ago. The patient has been refractory to conservative approach consisting of Betadine wet-to-dry dressing changes and p.o. antibiotics. The patient presents at this point in time for incision and drainage, excision of the trochanteric bursa, and possible hardware removal. Pros, cons, risks and benefits were discussed. Possibility of mechanical failure, infection, thromboembolic disease, secondary or tertiary surgery was discussed. The patient wished the surgery to be accomplished, having failed a conservative course. OPERATIVE PROCEDURE: After having obtained informed consent in the above fashion, after having identified side, site and procedure and critical pause/time-out, after the satisfactory induction of the anesthetic, the patient identified as Teodoro Rojas was placed in the direct lateral decubitus position. All bony prominences are well padded. This having been accomplished under the surgeon's direction, the fluoroscope was positioned, video images were generated, therapeutic decisions were made therefrom. The proximal screw in the fixation plate was found to be suspect and migrating. There was no evidence of loosening. There was no evidence of osteomyelitis on plain arm, TL and AR fluoroscopic x-rays. Again the possibility of later complete component and hardware removal was discussed with the insertion of antibiotic impregnated spacer and IV antibiotics. Possibility of mechanical failure, infection, thromboembolic disease, secondary or tertiary surgery was discussed. After having obtained informed consent in the above fashion, after the satisfactory induction of general endotracheal anesthesia by Dr. Cortez and after having identified side, site and procedure and critical pause/time-out, the patient identified as Teodoro Rojas, he was placed in direct lateral decubitus position with all bony prominence well padded. Under the surgeon's direction, the fluoroscope was positioned, video images were generated and therapeutic decisions are made therefrom. This having been accomplished, an ellipse of skin, subcutaneous tissue and a bit of muscle was excised. This having been accomplished, the skin and subcutaneous tissue and muscle was excised. This having been accomplished, the trochanteric bursa was found to have an egress of fluid. This was collected and sent for stat Gram stain, number of white cells per high-power field. It should be noted that amongst the patient's comorbidities, the patient is HIV positive. The fluid was sent for aerobic, anaerobic, AFB and fungal cultures. Partial excision of the trochanteric bursa was accomplished. At this point in time, arthrotomy was accomplished and aspiration was accomplished as well. This was sent for aerobic, anaerobic, AFB and fungal cultures as well as and a second aliquot from the joint was sent for stat Gram stain, number of white cells per high-power field. This having been accomplished, the wound was thoroughly irrigated with greater than 5 liters of antibiotic impregnated saline. This having been accomplished, the calcium impregnated pellets were prepared with vancomycin and gentamicin and these were placed intra-articularly. This having been accomplished, the intra-articular placement of the pellets was accomplished. Verification of position was offered on image intensification views. Closure was in layers with interrupted Vicryl and nylon. At this point time, wound VAC was applied. The wound VAC was cut to size, placed on the wound and sealed. The diameter was cut for the wound VAC egress, the wound VAC was placed. Again it was sealed and attached to the suction device. Verification of position was accomplished on fluoroscopic view. Compression dressing was applied. Chavez Gutierrez MD
[2017-08-22 17:59] LABS: % CD4 (T HELPER CELL) 37 Percent (30-61); % CD8 (SUPPRESSOR T CELL) 23 Percent (12-42); ABSOLUTE CD4 CELLS 650 Cells/mcL (490-1740); ABSOLUTE CD8 CELLS 393 Cells/mcL (180-1170); ABSOLUTE LYMPHOCYTES 1740 Cells/mcL (850-3900); HELPER/SUPPRESSOR RATIO 1.66 Ratio (0.86-5.00)
== END 2017-08-20 22:17 | DRG 480 ==
LOC: H.OPSURG 09:49 → H.MEDSURG1 20:14
PROVIDERS: ADMIT Student in an Organized Health Care Education/Training Program; ATTEND Student in an Organized Health Care Education/Training Program
PROC: 0S9B00Z Drainage of Left Hip Joint with Drainage Device, Open Approach (ICD-10-PCS; 2017-08-17)
PROC: 0SPB04Z Removal of Internal Fixation Device from Left Hip Joint, Open Approach (ICD-10-PCS; 2017-08-17)
PROC: 0SH Lower Joints, Insertion (ICD-10-PCS; 2017-08-17)
PROC: 0MBM0ZZ Excision of Left Hip Bursa and Ligament, Open Approach (ICD-10-PCS; principal; 2017-08-17 15:00)
PROC: 02HV33Z Insertion of Infusion Device into Superior Vena Cava, Percutaneous Approach (ICD-10-PCS; 2017-08-18)
PROC: B518ZZA Fluoroscopy of Superior Vena Cava, Guidance (ICD-10-PCS; 2017-08-18)
PROC: 3E04329 Introduction of Other Anti-infective into Central Vein, Percutaneous Approach (ICD-10-PCS; 2017-08-18)
DX: T84.52XA Infection and inflammatory reaction due to internal left hip prosthesis, initial encounter (principal); A41.9 Sepsis, unspecified organism; M71.152 Other infective bursitis, left hip; B20 Human immunodeficiency virus [HIV] disease; M00.052 Staphylococcal arthritis, left hip; D62 Acute posthemorrhagic anemia; I42.8 Other cardiomyopathies; B95.7 Other staphylococcus as the cause of diseases classified elsewhere; R33.8 Other retention of urine; J84.10 Pulmonary fibrosis, unspecified; J44.9 Chronic obstructive pulmonary disease, unspecified; E78.5 Hyperlipidemia, unspecified; E78.00 Pure hypercholesterolemia, unspecified; I10 Essential (primary) hypertension; I25.10 Atherosclerotic heart disease of native coronary artery without angina pectoris; Z96.642 Presence of left artificial hip joint; N40.1 Benign prostatic hyperplasia with lower urinary tract symptoms; Z86.73 Personal history of transient ischemic attack (TIA), and cerebral infarction without residual deficits; Z87.01 Personal history of pneumonia (recurrent); Z87.891 Personal history of nicotine dependence; I25.2 Old myocardial infarction

== ENCOUNTER 2017-08-20 22:08 | Inpatient (IN) | payer OTHER ==
[2017-08-20 22:17] VITALS: BMI 26.1
[2017-08-20] MEDS ORDERED: Alum-Mag Hydrox-Simethicone Susp (30 mL) PO PRN (23:10)
[2017-08-20] MEDS ORDERED: DAPTOmycin 500 mg Inj (Cubicin) IV SCH (23:15)
[2017-08-21] MEDS: Oxycodone/Acetaminophen 5/325 mg Tab PO PRN ×2 (00:25→19:36)
[2017-08-21] MEDS ORDERED: Meropenem 1 GM/NS 100 ML IVPB SCH (05:00)
[2017-08-21] MEDS: Meropenem 500 MG in Sodium Chloride 0.9% 100 ML IVPB SCH ×2 (05:57→16:57)
[2017-08-21 06:37] LABS: BLOOD UREA NITROGEN 12 mg/dl (9-20); CALCIUM 9.3 mg/dL (8.4-10.2); GFR AFRICAN-AMERICAN > 60; GFR NON-AFRICAN AMERICAN > 60
[2017-08-21 06:55] LABS: INR 1.2 (0.9-1.2); PARTIAL THROMBOPLASTIN TIME 29.3 Seconds (25.6-37.1); PROTHROMBIN TIME 13.8 Seconds (9.8-13.1)
[2017-08-21 07:37] LABS: BASO % 0.5 % (0.0-2.0); EOS # 0.3 K/uL (0.0-0.7); EOS % 4.6 % (0.0-4.0); HEMOGLOBIN 10.3 g/dL (12.0-18.0); LYMPH # 1.9 K/uL (1.0-4.3); LYMPH % 32.3 % (20.0-40.0); MEAN CELL VOLUME 104.8 fl (80.0-94.0); MEAN CORPUSCULAR HEMOGLOBIN 36.8 pg (27.0-31.0); MEAN CORPUSCULAR HGB CONC 35.1 g/dL (33.0-37.0); MEAN PLATELET VOLUME 8.1 fl (7.2-11.7); MONO # 0.6 K/uL (0.0-0.8); MONO % 9.4 % (0.0-10.0); NEUT # 3.1 K/uL (1.8-7.0); NEUT % 53.2 % (50.0-75.0); NRBC % 0.2 % (0.0-0.0); RBC 2.81 Mil/uL (4.40-5.90); RED CELL DISTRIBUTION WIDTH 12.4 % (11.5-14.5); WHITE BLOOD COUNT 5.9 K/uL (4.8-10.8)
[2017-08-21] MEDS ORDERED: Patient's Own Med (Meropenem [Meropenem] 1 GM) IV SCH (09:00)
[2017-08-21] MEDS: Emtricitabine-Tenofovir 200 mg-300 mg Tab PO SCH (09:02)
[2017-08-21] MEDS: Enoxaparin 40 mg Syringe SC SCH (10:19)
--- NOTE | 2017-08-21 16:59 | CP.PCM.HP ---
History of Present Illness - History of Present Illness History of Present Illness: 72 yo M pmhx of nonobstructive CAD, nonischemic cardiomyopathy, HIV, COPD, pulmonary fibrosis, HTN, HLD, BPH admitted for septic trochanteric bursitis and underwent partial removal of hardware with I& D of left hip with application of wound vac . At present Post op day 4 , doing well. Tmax 99.9 Cultures from left hip all growing Staph coag negative ID consulted and recommended 6 weeks of IV antibiotics On meropenem and daptomycin IV Q48 hours. Momnitor renal function closely In TCU for continued PT and IV antibiotics Present on Admission - Present on Admission Any Indicators Present on Admission: No Review of Systems - Review of Systems Review of Systems: A 12 point review of systems was conducted and found to be negative other than what was mentioned in the HPI. Past Patient History - Past Medical History & Family History Past Medical History?: Yes - Past Social History Smoking Status: Former Smoker - CARDIAC Hx Cardiac Disorders: Yes Hx Hypertension: Yes - PULMONARY Hx Chronic Obstructive Pulmonary Disease (COPD): Yes - NEUROLOGICAL Hx Neurological Disorder: No Hx Transient Ischemic Attacks (TIA): Yes - HEENT Hx HEENT Problems: No Hx Cataracts: Yes (L eye Catatract surgery) - RENAL Hx Chronic Kidney Disease: No - ENDOCRINE/METABOLIC Hx Endocrine Disorders: No - HEMATOLOGICAL/ONCOLOGICAL Hx Blood Disorders: Yes Hx AIDS: Yes Hx Blood Transfusions: Yes Hx Human Immunodeficiency Virus (HIV): Yes - INTEGUMENTARY Hx Dermatological Problems: No - MUSCULOSKELETAL/RHEUMATOLOGICAL Hx Musculoskeletal Disorders: Yes Hx Arthritis: Yes Hx Falls: Yes - GASTROINTESTINAL Hx Gastrointestinal Disorders: Yes Hx Bowel Surgery: Yes Hx Diverticulitis: Yes Hx Hemorrhoids: Yes - GENITOURINARY/GYNECOLOGICAL Hx Genitourinary Disorders: No Hx Prostate Problems: Yes (On Flomax) - PSYCHIATRIC Hx Psychophysiologic Disorder: No Hx Substance Use: No - SURGICAL HISTORY Hx Surgeries: Yes Hx Appendectomy: Yes (AGE 3) Hx Cardiac Catheterization: Yes Hx Orthopedic Surgery: Yes (L Hip replacement 2013) Other/Comment: bowel resection, pneumonectomy left lobe - ANESTHESIA Hx Anesthesia: Yes Hx Anesthesia Reactions: No Hx Malignant Hyperthermia: No Meds Allergies/Adverse Reactions: Allergies Allergy/AdvReac Type Severity Reaction Status Date / Time morphine Allergy ITCHING Verified 08/20/16 07:57 morp Allergy Intermediate ITCHING Uncoded 08/20/16 07:57 Physical Exam - Additional Findings Additional findings: Physical exam: Constitutional- cooperative, awake, alert Head- NCAT, PERRL Eye- PERRL, EOMI ENT- normal exam, MMM. Neck- normal inspection, supple, no JVD Respiratory- CTAB, no wheezes rales rhonchi Cardiovascular- RRR, +S1, +S2 no MRG GI/Abdominal- normal bowel sounds, soft, no mass, no hsm Skin- warm, dry Extremities Exam- normal capillary refill, normal inspection Neurological Exam- alert, awake, oriented Psych- normal mood, normal affect Results - Vital Signs Recent Vital Signs: Last Vital Signs Temp 97.5 F L 08/21/17 16:12 Pulse 69 08/21/17 16:12 Resp 20 08/21/17 16:12 BP 98/69 L 08/21/17 16:12 Pulse Ox 99 08/21/17 16:12 - Labs Result Diagrams: 08/21/17 06:26 08/21/17 06:26 Labs: Laboratory Results - last 24 hr 08/21/17 08/21/17 08/21/17 06:26 06:26 06:26 WBC 5.9 RBC 2.81 L Hgb 10.3 L Hct 29.5 L MCV 104.8 H MCH 36.8 H MCHC 35.1 RDW 12.4 Plt Count 215 MPV 8.1 Neut % (Auto) 53.2 Lymph % (Auto) 32.3 [place] % (Auto) 9.4 Eos % (Auto) 4.6 H Baso % (Auto) 0.5 Neut # (Auto) 3.1 Lymph # (Auto) 1.9 [place] # (Auto) 0.6 Eos # (Auto) 0.3 Baso # (Auto) 0.0 PT 13.8 H INR 1.2 APTT 29.3 Sodium 131 L Potassium 4.1 Chloride 95 L Carbon Dioxide 26 Anion Gap 14 BUN 12 Creatinine 1.0 Est GFR ( Amer) > 60 Est GFR (Non-Af Amer) > 60 Random Glucose 100 Calcium 9.3 Assessment & Plan - Assessment and Plan (Free Text) Plan: 72 yo M pmhx of nonobstructive CAD, nonischemic cardiomyopathy, HIV, COPD, pulmonary fibrosis, HTN, HLD, BPH admitted for septic trochanteric bursitis and underwent partial removal of hardware with I& D of left hip with application of wound vac . At present Post op day 4 , doing well. Tmax 99.9 Cultures from left hip all growing Staph coag negative ID consulted and recommended 6 weeks of IV antibiotics On meropenem and daptomycin IV Q48 hours. Momnitor renal function closely In TCU for continued PT and IV antibiotics 1.Septic Trochateric Bursitis history of L partial hip in 2013 with ORIF in [address] Gutierrez s/p partial removal of hardware with I&D of L hip with application of wound vac ID consulted Dr. Acharya and recommended [facility]dc IV antibiotics Wound cx positive for Staph Coag negative on meropenem and Daptomycin IV- ID consulted. monitor renal function Incentive spirometry Pain management 2.Non obstructive CAD, non ischemic cardiomyopathy continue home meds: Carvedilol 6.25 mg PO BID; Furosemide 20 mg PO QD; Spironolactone 25 mg PO QD 3. HTN continue home meds: Lisinopril 40 mg PO qDaily; Furosemide 20 mg PO QD; Spironolactone 25 mg PO QD 4. Hyponatremia due to poor sodium intake, improving - 129-> 131 - Monitor 5.Dyslipidemia on Prevastatin Sodium 80 mg PO HS 6. HIV continue home meds: Dolutegravir Sodium 50 mg PO QD; Emtricitabine/Tenofov Alafenam 25 - 200 mg PO QD 7. Moderate COPD stable incentive spirometry 8.Pulmonary fibrosis stable 9. BPH Continue: Tamulosin 0.4 mg PO QD\ 9. Acute blood loss anemia monitor for now 10.DVT prophylaxis Lovenox 40 mg
--- NOTE | 2017-08-21 17:19 | CP.PCM.PN ---
Subjective - Date & Time of Evaluation Date of Evaluation: 08/21/17 Time of Evaluation: 17:20 - Subjective Subjective: I D NOTE AFEBRILE RENAL FUNCTION STABLE DISCUSSED RX C PATIENT Objective - Vital Signs/Intake and Output Vital Signs (last 24 hours): Temp Pulse Resp BP Pulse Ox 97.5 F L 73 20 102/67 99 08/21/17 16:12 08/21/17 17:00 08/21/17 16:12 08/21/17 17:00 08/21/17 16:12 - Medications Medications: Current Medications Acetaminophen (Tylenol 325mg Tab) 650 mg PO Q6 PRN PRN Reason: Fever >100.4 F Al Hydrox/Mg Hydrox/Simethicone (Maalox Plus 30 Ml) 30 ml PO Q6 PRN PRN Reason: Indigestion / Heartburn Aspirin (Aspirin Chewable) 81 mg PO DAILY [facility] Last Admin: 08/21/17 09:04 Dose: 81 mg Carvedilol (Coreg) 6.25 mg PO BID [facility] Last Admin: 08/21/17 17:00 Dose: 6.25 mg Docusate Sodium (Colace) 100 mg PO BID [facility] Last Admin: 08/21/17 16:59 Dose: 100 mg Dolutegravir Sodium (Tivicay) 50 mg PO QPM [facility] Last Admin: 08/21/17 17:09 Dose: 50 mg Emtricitabine/Tenofovir (Truvada 200 Mg-300 Mg) 1 tab PO DAILY [facility] Last Admin: 08/21/17 09:02 Dose: 1 tab Enoxaparin Sodium (Lovenox) 40 mg SC DAILY [facility] PRN Reason: Protocol Last Admin: 08/21/17 10:19 Dose: 40 mg Furosemide (Lasix) 20 mg PO DAILY [facility] Last Admin: 08/21/17 09:03 Dose: 20 mg Daptomycin 500 mg/ Sodium (Chloride) 100 mls @ 100 mls/hr IV Q48H [facility] Stop: 08/26/17 18:01 Lisinopril (Zestril) 40 mg PO DAILY [facility] Last Admin: 08/21/17 09:03 Dose: 40 mg Oxycodone/Acetaminophen (Percocet 5/325 Mg Tab) 1 tab PO Q4 PRN PRN Reason: Pain, severe (8-10) Stop: 08/23/17 23:11 Last Admin: 08/21/17 00:25 Dose: 1 tab Pravastatin Sodium (Pravachol) 80 mg PO HS [facility] Spironolactone (Aldactone) 25 mg PO DAILY [facility] Last Admin: 08/21/17 09:02 Dose: 25 mg Tamsulosin HCl (Flomax) 0.4 mg PO DAILY [facility] Last Admin: 08/21/17 09:02 Dose: 0.4 mg - Labs Labs: 08/21/17 06:26 08/21/17 06:26 PT 13.8 Seconds (9.8-13.1) H 08/21/17 06:26 INR 1.2 (0.9-1.2) 08/21/17 06:26 APTT 29.3 Seconds (25.6-37.1) 08/21/17 06:26
[2017-08-21] MEDS: DAPTOmycin 500 MG in Sodium Chloride 0.9% 100 ML IV SCH (18:16)
--- NOTE | 2017-08-21 19:36 | CP.PCM.PN ---
Subjective - Date & Time of Evaluation Date of Evaluation: 08/21/17 Time of Evaluation: 12:00 - Subjective Subjective: Patient seen and examined at bedside comfortable. Pain is well controlled and was able to ambulate with PT. Tolerating diet well. No new complaints. Objective - Vital Signs/Intake and Output Vital Signs (last 24 hours): Temp Pulse Resp BP Pulse Ox 97.5 F L 73 20 102/67 99 08/21/17 16:12 08/21/17 17:00 08/21/17 16:12 08/21/17 17:00 08/21/17 16:12 - Medications Medications: Current Medications Acetaminophen (Tylenol 325mg Tab) 650 mg PO Q6 PRN PRN Reason: Fever >100.4 F Al Hydrox/Mg Hydrox/Simethicone (Maalox Plus 30 Ml) 30 ml PO Q6 PRN PRN Reason: Indigestion / Heartburn Aspirin (Aspirin Chewable) 81 mg PO DAILY [facility] Last Admin: 08/21/17 09:04 Dose: 81 mg Carvedilol (Coreg) 6.25 mg PO BID [facility] Last Admin: 08/21/17 17:00 Dose: 6.25 mg Docusate Sodium (Colace) 100 mg PO BID [facility] Last Admin: 08/21/17 16:59 Dose: 100 mg Dolutegravir Sodium (Tivicay) 50 mg PO QPM [facility] Last Admin: 08/21/17 17:09 Dose: 50 mg Emtricitabine/Tenofovir (Truvada 200 Mg-300 Mg) 1 tab PO DAILY [facility] Last Admin: 08/21/17 09:02 Dose: 1 tab Enoxaparin Sodium (Lovenox) 40 mg SC DAILY [facility] PRN Reason: Protocol Last Admin: 08/21/17 10:19 Dose: 40 mg Furosemide (Lasix) 20 mg PO DAILY [facility] Last Admin: 08/21/17 09:03 Dose: 20 mg Daptomycin 500 mg/ Sodium (Chloride) 100 mls @ 100 mls/hr IV Q48H [facility] Stop: 08/26/17 18:01 Last Admin: 08/21/17 18:16 Dose: 100 mls/hr Meropenem 1 gm/ Sodium (Chloride) 100 mls @ 100 mls/hr IVPB Q8 [facility] PRN Reason: Protocol Lactobacillus Acidophilus (Bacid Acidophilus) 1 cap PO BID [facility] Lisinopril (Zestril) 40 mg PO DAILY [facility] Last Admin: 08/21/17 09:03 Dose: 40 mg Oxycodone/Acetaminophen (Percocet 5/325 Mg Tab) 1 tab PO Q4 PRN PRN Reason: Pain, severe (8-10) Stop: 08/23/17 23:11 Last Admin: 08/21/17 00:25 Dose: 1 tab Pravastatin Sodium (Pravachol) 80 mg PO [facility] Spironolactone (Aldactone) 25 mg PO DAILY [facility] Last Admin: 08/21/17 09:02 Dose: 25 mg Tamsulosin HCl (Flomax) 0.4 mg PO DAILY [facility] Last Admin: 08/21/17 09:02 Dose: 0.4 mg - Labs Labs: 08/21/17 06:26 08/21/17 06:26 PT 13.8 Seconds (9.8-13.1) H 08/21/17 06:26 INR 1.2 (0.9-1.2) 08/21/17 06:26 APTT 29.3 Seconds (25.6-37.1) 08/21/17 06:26 - Constitutional Appears: No Acute Distress - Extremities Exam Additional comments: Left hip: Prevena dressings intact. No tenderness. Sensation intact SP/DP/TN. Motor intact EHL/FHL/gastroc/TA. Pedal pulses intact. Calves soft and NT b/l - Neurological Exam Neurological Exam: Alert, Awake - Psychiatric Exam Psychiatric exam: Normal Affect, Normal Mood - Skin Skin Exam: Normal Color Assessment and Plan (1) Other infective bursitis, left hip Assessment & Plan: Patient is POD#4 s/p L hip I&D and excision of trochanteric bursitis -Maintain Prevena dressings -PT/OT -DVT ppx -ABX as per ID -Patient's case and plan was d/w Dr. Gutierrez in agreement Status: Acute
[2017-08-21] MEDS: Pravastatin Sodium 40 MG TAB PO SCH (21:35)
[2017-08-22] MEDS: Meropenem 1 GM in Sodium Chloride 0.9% 100 ML IVPB SCH ×3 (01:01→16:24)
[2017-08-22] MEDS: Enoxaparin 40 mg Syringe SC SCH (08:28)
[2017-08-22] MEDS: Oxycodone/Acetaminophen 5/325 mg Tab PO PRN ×2 (08:28→17:34)
[2017-08-22] MEDS: Emtricitabine-Tenofovir 200 mg-300 mg Tab PO SCH (08:30)
[2017-08-22] MEDS: Lactobacillus Acidophilus 500 MU Cap PO SCH ×2 (08:33→16:23)
--- NOTE | 2017-08-22 12:04 | CP.PCM.PN ---
Subjective - Date & Time of Evaluation Date of Evaluation: 08/22/17 Time of Evaluation: 10:00 - Subjective Subjective: Patient seen and examined at bedside. Reports some pain to the left hip but it is controlled with pain medications. Tolerating PT well and able to ambulate. Tolerating diet well. Seen by technical spec. No new complaints. Objective - Vital Signs/Intake and Output Vital Signs (last 24 hours): Temp Pulse Resp BP Pulse Ox 98.4 F 75 20 105/70 96 08/22/17 09:01 08/22/17 09:01 08/22/17 09:01 08/22/17 09:01 08/22/17 09:01 - Medications Medications: Current Medications Acetaminophen (Tylenol 325mg Tab) 650 mg PO Q6 PRN PRN Reason: Fever >100.4 F Al Hydrox/Mg Hydrox/Simethicone (Maalox Plus 30 Ml) 30 ml PO Q6 PRN PRN Reason: Indigestion / Heartburn Aspirin (Aspirin Chewable) 81 mg PO DAILY [facility] Last Admin: 08/22/17 08:29 Dose: 81 mg Carvedilol (Coreg) 6.25 mg PO BID [facility] Last Admin: 08/22/17 08:33 Dose: 6.25 mg Docusate Sodium (Colace) 100 mg PO BID [facility] Last Admin: 08/22/17 08:29 Dose: 100 mg Dolutegravir Sodium (Tivicay) 50 mg PO QPM [facility] Last Admin: 08/21/17 17:09 Dose: 50 mg Emtricitabine/Tenofovir (Truvada 200 Mg-300 Mg) 1 tab PO DAILY [facility] Last Admin: 08/22/17 08:30 Dose: 1 tab Enoxaparin Sodium (Lovenox) 40 mg SC DAILY [facility] PRN Reason: Protocol Last Admin: 08/22/17 08:28 Dose: 40 mg Furosemide (Lasix) 20 mg PO DAILY [facility] Last Admin: 08/22/17 08:30 Dose: 20 mg Daptomycin 500 mg/ Sodium (Chloride) 100 mls @ 100 mls/hr IV Q48H [facility] Stop: 08/26/17 18:01 Last Admin: 08/21/17 18:16 Dose: 100 mls/hr Meropenem 1 gm/ Sodium (Chloride) 100 mls @ 100 mls/hr IVPB Q8 [facility] PRN Reason: Protocol Last Admin: 08/22/17 08:34 Dose: 100 mls/hr Lactobacillus Acidophilus (Bacid Acidophilus) 1 cap PO BID [facility] Last Admin: 08/22/17 08:33 Dose: 1 cap Lisinopril (Zestril) 40 mg PO DAILY [facility] Last Admin: 08/22/17 08:29 Dose: 40 mg Oxycodone/Acetaminophen (Percocet 5/325 Mg Tab) 1 tab PO Q4 PRN PRN Reason: Pain, severe (8-10) Stop: 08/23/17 23:11 Last Admin: 08/22/17 08:28 Dose: 1 tab Pravastatin Sodium (Pravachol) 80 mg PO [facility] Last Admin: 08/21/17 21:35 Dose: 80 mg Spironolactone (Aldactone) 25 mg PO DAILY [facility] Last Admin: 08/22/17 08:30 Dose: 25 mg Tamsulosin HCl (Flomax) 0.4 mg PO DAILY [facility] Last Admin: 08/22/17 08:30 Dose: 0.4 mg - Labs Labs: 08/21/17 06:26 08/21/17 06:26 PT 13.8 Seconds (9.8-13.1) H 08/21/17 06:26 INR 1.2 (0.9-1.2) 08/21/17 06:26 APTT 29.3 Seconds (25.6-37.1) 08/21/17 06:26 - Additional Findings Additional findings: Physical exam: Constitutional- cooperative, awake, alert Head- NCAT, PERRL Eye- PERRL, EOMI ENT- normal exam, MMM. Neck- normal inspection, supple, no JVD Respiratory- CTAB, no wheezes rales rhonchi Cardiovascular- RRR, +S1, +S2 no MRG GI/Abdominal- normal bowel sounds, soft, no mass, no hsm Skin- warm, dry Extremities Exam- normal capillary refill, normal inspection Neurological Exam- alert, awake, oriented Psych- normal mood, normal affect Assessment and Plan - Assessment and Plan (Free Text) Plan: 72 yo M pmhx of nonobstructive CAD, nonischemic cardiomyopathy, HIV, COPD, pulmonary fibrosis, HTN, HLD, BPH admitted for septic trochanteric bursitis and underwent partial removal of hardware with I& D of left hip with application of wound vac . At present Post op day 5 , doing well. Tmax 99.9 Cultures from left hip all growing Staph coag negative ID consulted and recommended 6 weeks of IV antibiotics On meropenem and daptomycin IV Q48 hours. Monitor renal function closely In TCU for continued PT and IV antibiotics 1.Septic Trochateric Bursitis history of L partial hip in 2013 with ORIF in [address] Gutierrez s/p partial removal of hardware with I&D of L hip with application of wound vac ID consulted Dr. Acharya and recommended [facility] IV antibiotics Wound cx positive for Staph Coag negative on meropenem and Daptomycin IV- ID consulted. monitor renal function Incentive spirometry Pain management 2.Non obstructive CAD, non ischemic cardiomyopathy continue home meds: Carvedilol 6.25 mg PO BID; Furosemide 20 mg PO QD; Spironolactone 25 mg PO QD 3. HTN continue home meds: Lisinopril 40 mg PO qDaily; Furosemide 20 mg PO QD; Spironolactone 25 mg PO QD 4. Hyponatremia due to poor sodium intake, improving - 129-> 131 - Monitor 5.Dyslipidemia on Prevastatin Sodium 80 mg PO HS 6. HIV continue home meds: Dolutegravir Sodium 50 mg PO QD; Emtricitabine/Tenofov Alafenam 25 - 200 mg PO QD 7. Moderate COPD stable incentive spirometry 8.Pulmonary fibrosis stable 9. BPH Continue: Tamulosin 0.4 mg PO QD\ 9. Acute blood loss anemia monitor for now 10.DVT prophylaxis Lovenox 40 mg
--- NOTE | 2017-08-22 18:37 | CP.PCM.CON ---
History of Present Illness - History of Present Illness History of Present Illness: 72 year old male status post left trochanteric busitis status post I and D left partial hip 2013, and left hip Orif 2016. admitted to [facility] for treatment and therapy Review of Systems - Constitutional Constitutional: Lethargy, Weakness - Musculoskeletal Musculoskeletal: Abnormal Gait Past Patient History - Past Medical History & Family History Past Medical History?: Yes - Past Social History Smoking Status: Former Smoker - CARDIAC Hx Cardiac Disorders: Yes Hx Hypertension: Yes - PULMONARY Hx Chronic Obstructive Pulmonary Disease (COPD): Yes - NEUROLOGICAL Hx Neurological Disorder: No Hx Transient Ischemic Attacks (TIA): Yes - HEENT Hx HEENT Problems: No Hx Cataracts: Yes (L eye Catatract surgery) - RENAL Hx Chronic Kidney Disease: No - ENDOCRINE/METABOLIC Hx Endocrine Disorders: No - HEMATOLOGICAL/ONCOLOGICAL Hx Blood Disorders: Yes Hx AIDS: Yes Hx Blood Transfusions: Yes Hx Human Immunodeficiency Virus (HIV): Yes - INTEGUMENTARY Hx Dermatological Problems: No - MUSCULOSKELETAL/RHEUMATOLOGICAL Hx Musculoskeletal Disorders: Yes Hx Arthritis: Yes Hx Falls: Yes - GASTROINTESTINAL Hx Gastrointestinal Disorders: Yes Hx Bowel Surgery: Yes Hx Diverticulitis: Yes Hx Hemorrhoids: Yes - GENITOURINARY/GYNECOLOGICAL Hx Genitourinary Disorders: No Hx Prostate Problems: Yes (On Flomax) - PSYCHIATRIC Hx Psychophysiologic Disorder: No Hx Substance Use: No - SURGICAL HISTORY Hx Surgeries: Yes Hx Appendectomy: Yes (AGE 3) Hx Cardiac Catheterization: Yes Hx Orthopedic Surgery: Yes (L Hip replacement 2013) Other/Comment: bowel resection, pneumonectomy left lobe - ANESTHESIA Hx Anesthesia: Yes Hx Anesthesia Reactions: No Hx Malignant Hyperthermia: No Meds Allergies/Adverse Reactions: Allergies Allergy/AdvReac Type Severity Reaction Status Date / Time morphine Allergy ITCHING Verified 08/20/16 07:57 morp Allergy Intermediate ITCHING Uncoded 08/20/16 07:57 - Medications Medications: Current Medications Acetaminophen (Tylenol 325mg Tab) 650 mg PO Q6 PRN PRN Reason: Fever >100.4 F Al Hydrox/Mg Hydrox/Simethicone (Maalox Plus 30 Ml) 30 ml PO Q6 PRN PRN Reason: Indigestion / Heartburn Aspirin (Aspirin Chewable) 81 mg PO DAILY [facility] Last Admin: 08/22/17 08:29 Dose: 81 mg Carvedilol (Coreg) 6.25 mg PO BID [facility] Last Admin: 08/22/17 16:24 Dose: Not Given Docusate Sodium (Colace) 100 mg PO BID [facility] Last Admin: 08/22/17 16:23 Dose: 100 mg Dolutegravir Sodium (Tivicay) 50 mg PO QPM [facility] Last Admin: 08/22/17 17:30 Dose: 50 mg Emtricitabine/Tenofovir (Truvada 200 Mg-300 Mg) 1 tab PO DAILY [facility] Last Admin: 08/22/17 08:30 Dose: 1 tab Enoxaparin Sodium (Lovenox) 40 mg SC DAILY [facility] PRN Reason: Protocol Last Admin: 08/22/17 08:28 Dose: 40 mg Furosemide (Lasix) 20 mg PO DAILY [facility] Last Admin: 08/22/17 08:30 Dose: 20 mg Daptomycin 500 mg/ Sodium (Chloride) 100 mls @ 100 mls/hr IV Q48H [facility] Stop: 08/26/17 18:01 Last Admin: 08/21/17 18:16 Dose: 100 mls/hr Meropenem 1 gm/ Sodium (Chloride) 100 mls @ 100 mls/hr IVPB Q8 [facility] PRN Reason: Protocol Last Admin: 08/22/17 16:24 Dose: 100 mls/hr Lactobacillus Acidophilus (Bacid Acidophilus) 1 cap PO BID [facility] Last Admin: 08/22/17 16:23 Dose: 1 cap Lisinopril (Zestril) 40 mg PO DAILY [facility] Last Admin: 08/22/17 08:29 Dose: 40 mg Oxycodone/Acetaminophen (Percocet 5/325 Mg Tab) 1 tab PO Q4 PRN PRN Reason: Pain, severe (8-10) Stop: 08/23/17 23:11 Last Admin: 08/22/17 17:34 Dose: 1 tab Pravastatin Sodium (Pravachol) 80 mg PO HS [facility] Last Admin: 08/21/17 21:35 Dose: 80 mg Spironolactone (Aldactone) 25 mg PO DAILY [facility] Last Admin: 08/22/17 08:30 Dose: 25 mg Tamsulosin HCl (Flomax) 0.4 mg PO DAILY [facility] Last Admin: 08/22/17 08:30 Dose: 0.4 mg Physical Exam - Head Exam Head Exam: ATRAUMATIC, NORMAL INSPECTION, NORMOCEPHALIC - Eye Exam Eye Exam: EOMI, Normal appearance, PERRL Pupil Exam: NORMAL ACCOMODATION - ENT Exam ENT Exam: Mucous Membranes Moist, Normal Exam - Neck Exam Neck exam: Positive for: Normal Inspection - Respiratory Exam Respiratory Exam: NORMAL BREATHING PATTERN - Cardiovascular Exam Cardiovascular Exam: REGULAR RHYTHM - GI/Abdominal Exam GI & Abdominal Exam: Normal Bowel Sounds - Rectal Exam Rectal Exam: NORMAL INSPECTION - Exam External exam: NORMAL EXTERNAL EXAM - Back Exam Back exam: NORMAL INSPECTION Additional comments: left leg weakness, tone is normal, range of motion normal, muscle strenght 3/5 - Neurological Exam Neurological exam: Alert, CN II-XII Intact - Psychiatric Exam Psychiatric exam: Normal Affect - Skin Skin Exam: Normal Color Results - Vital Signs Recent Vital Signs: Last Vital Signs Temp 98.1 F 08/22/17 16:25 Pulse 76 08/22/17 16:25 Resp 20 08/22/17 16:25 BP 107/58 L 08/22/17 16:25 Pulse Ox 98 08/22/17 16:25 - Labs Result Diagrams: 08/21/17 06:26 08/21/17 06:26 Assessment & Plan (1) Other infective bursitis, left hip Assessment and Plan: plan for physical, occupational therapy for range of motion, strenghtening transfers and gait training Monitor skin and left hip Status: Acute (2) Acute blood loss anemia Status: Acute (3) Acute urinary retention Status: Acute (4) COPD (chronic obstructive pulmonary disease) Status: Acute (5) Closed left hip fracture Status: Acute (6) Diarrhea Status: Acute (7) Fever Status: Acute (8) Fracture, hip Status: Acute
--- NOTE | 2017-08-22 20:08 | CP.PCM.PN ---
Subjective - Date & Time of Evaluation Date of Evaluation: 08/22/17 Time of Evaluation: 10:00 - Subjective Subjective: patinet with left leg weakness Objective - Vital Signs/Intake and Output Vital Signs (last 24 hours): Temp Pulse Resp BP Pulse Ox 98.4 F 73 20 101/55 L 98 08/22/17 19:52 08/22/17 19:52 08/22/17 19:52 08/22/17 19:52 08/22/17 19:52 - Medications Medications: Current Medications Acetaminophen (Tylenol 325mg Tab) 650 mg PO Q6 PRN PRN Reason: Fever >100.4 F Al Hydrox/Mg Hydrox/Simethicone (Maalox Plus 30 Ml) 30 ml PO Q6 PRN PRN Reason: Indigestion / Heartburn Aspirin (Aspirin Chewable) 81 mg PO DAILY [facility] Last Admin: 08/22/17 08:29 Dose: 81 mg Carvedilol (Coreg) 6.25 mg PO BID [facility] Last Admin: 08/22/17 16:24 Dose: Not Given Docusate Sodium (Colace) 100 mg PO BID [facility] Last Admin: 08/22/17 16:23 Dose: 100 mg Dolutegravir Sodium (Tivicay) 50 mg PO QPM [facility] Last Admin: 08/22/17 17:30 Dose: 50 mg Emtricitabine/Tenofovir (Truvada 200 Mg-300 Mg) 1 tab PO DAILY [facility] Last Admin: 08/22/17 08:30 Dose: 1 tab Enoxaparin Sodium (Lovenox) 40 mg SC DAILY [facility] PRN Reason: Protocol Last Admin: 08/22/17 08:28 Dose: 40 mg Furosemide (Lasix) 20 mg PO DAILY [facility] Last Admin: 08/22/17 08:30 Dose: 20 mg Daptomycin 500 mg/ Sodium (Chloride) 100 mls @ 100 mls/hr IV Q48H [facility] Stop: 08/26/17 18:01 Last Admin: 08/21/17 18:16 Dose: 100 mls/hr Meropenem 1 gm/ Sodium (Chloride) 100 mls @ 100 mls/hr IVPB Q8 [facility] PRN Reason: Protocol Last Admin: 08/22/17 16:24 Dose: 100 mls/hr Lactobacillus Acidophilus (Bacid Acidophilus) 1 cap PO BID [facility] Last Admin: 08/22/17 16:23 Dose: 1 cap Lisinopril (Zestril) 40 mg PO DAILY [facility] Last Admin: 08/22/17 08:29 Dose: 40 mg Oxycodone/Acetaminophen (Percocet 5/325 Mg Tab) 1 tab PO Q4 PRN PRN Reason: Pain, severe (8-10) Stop: 08/23/17 23:11 Last Admin: 08/22/17 17:34 Dose: 1 tab Pravastatin Sodium (Pravachol) 80 mg PO HS [facility] Last Admin: 08/21/17 21:35 Dose: 80 mg Spironolactone (Aldactone) 25 mg PO DAILY [facility] Last Admin: 08/22/17 08:30 Dose: 25 mg Tamsulosin HCl (Flomax) 0.4 mg PO DAILY [facility] Last Admin: 08/22/17 08:30 Dose: 0.4 mg - Labs Labs: 08/21/17 06:26 08/21/17 06:26 PT 13.8 Seconds (9.8-13.1) H 08/21/17 06:26 INR 1.2 (0.9-1.2) 08/21/17 06:26 APTT 29.3 Seconds (25.6-37.1) 08/21/17 06:26 - Head Exam Head Exam: ATRAUMATIC, NORMAL INSPECTION, NORMOCEPHALIC - Eye Exam Eye Exam: EOMI, Normal appearance Pupil Exam: NORMAL ACCOMODATION - ENT Exam ENT Exam: Mucous Membranes Moist, Normal Exam - Neck Exam Neck Exam: Normal Inspection - Respiratory Exam Respiratory Exam: NORMAL BREATHING PATTERN - Cardiovascular Exam Cardiovascular Exam: REGULAR RHYTHM - GI/Abdominal Exam GI & Abdominal Exam: Soft, Normal Bowel Sounds - Rectal Exam Rectal Exam: NORMAL INSPECTION - Exam External exam: NORMAL EXTERNAL EXAM - Extremities Exam Extremities Exam: Normal Capillary Refill, Normal Inspection - Back Exam Back Exam: NORMAL INSPECTION - Neurological Exam Neurological Exam: Alert, Awake Neuro motor strength exam: Left Upper Extremity: 4, Right Upper Extremity: 4, Left Lower Extremity: 3, Right Lower Extremity: 4 - Psychiatric Exam Psychiatric exam: Normal Affect, Normal Mood - Skin Skin Exam: Dry, Intact Assessment and Plan (1) Other infective bursitis, left hip Assessment & Plan: plan for physical, occupational therapy monitor skin, left hip and pain management Status: Acute (2) Acute blood loss anemia Status: Acute (3) Acute urinary retention Status: Acute (4) COPD (chronic obstructive pulmonary disease) Status: Acute (5) Closed left hip fracture Status: Acute (6) Diarrhea Status: Acute (7) Fever Status: Acute (8) Fracture, hip Status: Acute
[2017-08-22] MEDS: Pravastatin Sodium 40 MG TAB PO SCH (21:04)
[2017-08-23] MEDS: Meropenem 1 GM in Sodium Chloride 0.9% 100 ML IVPB SCH ×3 (00:23→16:34)
[2017-08-23] MEDS: Oxycodone/Acetaminophen 5/325 mg Tab PO PRN ×2 (01:20→18:11)
[2017-08-23 06:56] LABS: ALB/GLOB RATIO 0.8 (1.0-2.1); ALBUMIN 3.5 g/dL (3.5-5.0); ALT/SGPT 25 U/L (21-72); AST/SGOT 28 U/L (17-59); BLOOD UREA NITROGEN 11 mg/dl (9-20); GFR AFRICAN-AMERICAN > 60; GFR NON-AFRICAN AMERICAN > 60
[2017-08-23] MEDS: Enoxaparin 40 mg Syringe SC SCH (08:33)
[2017-08-23] MEDS: Emtricitabine-Tenofovir 200 mg-300 mg Tab PO SCH (08:36)
[2017-08-23] MEDS: Lactobacillus Acidophilus 500 MU Cap PO SCH ×2 (08:39→16:34)
[2017-08-23] MEDS: DAPTOmycin 500 MG in Sodium Chloride 0.9% 100 ML IV SCH (17:26)
[2017-08-23] MEDS: Pravastatin Sodium 40 MG TAB PO SCH (21:29)
--- NOTE | 2017-08-23 21:35 | CP.PCM.PN ---
Subjective - Date & Time of Evaluation Date of Evaluation: 08/23/17 Time of Evaluation: 13:00 - Subjective Subjective: no complaints of hip pain Objective - Vital Signs/Intake and Output Vital Signs (last 24 hours): Temp Pulse Resp BP Pulse Ox 99.5 F 80 20 99/63 L 98 08/23/17 21:01 08/23/17 21:01 08/23/17 21:01 08/23/17 21:01 08/23/17 21:01 - Medications Medications: Current Medications Acetaminophen (Tylenol 325mg Tab) 650 mg PO Q6 PRN PRN Reason: Fever >100.4 F Al Hydrox/Mg Hydrox/Simethicone (Maalox Plus 30 Ml) 30 ml PO Q6 PRN PRN Reason: Indigestion / Heartburn Aspirin (Aspirin Chewable) 81 mg PO DAILY [facility] Last Admin: 08/23/17 08:36 Dose: 81 mg Carvedilol (Coreg) 6.25 mg PO BID [facility] Last Admin: 08/23/17 16:35 Dose: 6.25 mg Docusate Sodium (Colace) 100 mg PO BID [facility] Last Admin: 08/23/17 16:35 Dose: 100 mg Dolutegravir Sodium (Tivicay) 50 mg PO QPM [facility] Last Admin: 08/23/17 17:27 Dose: 50 mg Emtricitabine/Tenofovir (Truvada 200 Mg-300 Mg) 1 tab PO DAILY [facility] Last Admin: 08/23/17 08:36 Dose: 1 tab Enoxaparin Sodium (Lovenox) 40 mg SC DAILY [facility] PRN Reason: Protocol Last Admin: 08/23/17 08:33 Dose: 40 mg Furosemide (Lasix) 20 mg PO DAILY [facility] Last Admin: 08/23/17 08:36 Dose: 20 mg Daptomycin 500 mg/ Sodium (Chloride) 100 mls @ 100 mls/hr IV Q48H [facility] Stop: 08/26/17 18:01 Last Admin: 08/23/17 17:26 Dose: 100 mls/hr Meropenem 1 gm/ Sodium (Chloride) 100 mls @ 100 mls/hr IVPB Q8 [facility] PRN Reason: Protocol Last Admin: 08/23/17 16:34 Dose: 100 mls/hr Lactobacillus Acidophilus (Bacid Acidophilus) 1 cap PO BID [facility] Last Admin: 08/23/17 16:34 Dose: 1 cap Lisinopril (Zestril) 40 mg PO DAILY [facility] Last Admin: 08/23/17 08:34 Dose: 40 mg Oxycodone/Acetaminophen (Percocet 5/325 Mg Tab) 1 tab PO Q4 PRN PRN Reason: Pain, severe (8-10) Stop: 08/23/17 23:11 Last Admin: 08/23/17 18:11 Dose: 1 tab Pravastatin Sodium (Pravachol) 80 mg PO HS [facility] Last Admin: 08/23/17 21:29 Dose: 80 mg Spironolactone (Aldactone) 25 mg PO DAILY [facility] Last Admin: 08/23/17 08:35 Dose: 25 mg Tamsulosin HCl (Flomax) 0.4 mg PO DAILY [facility] Last Admin: 08/23/17 08:35 Dose: 0.4 mg - Labs Labs: 08/21/17 06:26 08/23/17 05:45 PT 13.8 Seconds (9.8-13.1) H 08/21/17 06:26 INR 1.2 (0.9-1.2) 08/21/17 06:26 APTT 29.3 Seconds (25.6-37.1) 08/21/17 06:26 - Head Exam Head Exam: ATRAUMATIC, NORMAL INSPECTION, NORMOCEPHALIC - Eye Exam Pupil Exam: NORMAL ACCOMODATION, PERRL - ENT Exam ENT Exam: Mucous Membranes Moist, Normal Exam - Neck Exam Neck Exam: Full ROM, Normal Inspection. absent: Lymphadenopathy - Respiratory Exam Respiratory Exam: Clear to Ausculation Bilateral, NORMAL BREATHING PATTERN - Cardiovascular Exam Cardiovascular Exam: REGULAR RHYTHM, +S1, +S2. absent: Murmur - GI/Abdominal Exam GI & Abdominal Exam: Soft, Normal Bowel Sounds. absent: Tenderness - Rectal Exam Rectal Exam: NORMAL INSPECTION - Extremities Exam Extremities Exam: Full ROM, Normal Capillary Refill, Normal Inspection. absent : Joint Swelling, Pedal Edema - Back Exam Back Exam: NORMAL INSPECTION - Neurological Exam Neurological Exam: Alert Neuro motor strength exam: Left Upper Extremity: 4, Right Upper Extremity: 4, Left Lower Extremity: 3, Right Lower Extremity: 4 - Psychiatric Exam Psychiatric exam: Normal Affect, Normal Mood Assessment and Plan (1) Other infective bursitis, left hip Assessment & Plan: continue with physical, occupational therapy program Status: Acute (2) Acute blood loss anemia Status: Acute (3) Acute urinary retention Status: Acute (4) COPD (chronic obstructive pulmonary disease) Status: Acute (5) Closed left hip fracture Status: Acute (6) Diarrhea Status: Acute (7) Fever Status: Acute (8) Fracture, hip Status: Acute
[2017-08-24] MEDS: Meropenem 1 GM in Sodium Chloride 0.9% 100 ML IVPB SCH ×3 (00:54→17:04)
[2017-08-24] MEDS: Enoxaparin 40 mg Syringe SC SCH (08:24)
[2017-08-24] MEDS: Emtricitabine-Tenofovir 200 mg-300 mg Tab PO SCH (08:25)
[2017-08-24] MEDS: Lactobacillus Acidophilus 500 MU Cap PO SCH ×2 (08:28→17:04)
--- NOTE | 2017-08-24 10:03 | CP.PCM.PN ---
Subjective - Date & Time of Evaluation Date of Evaluation: 08/24/17 Time of Evaluation: 10:03 - Subjective Subjective: DOING WELL PARTICIPATING IN PT HD STABLE NAD NO COMPLAINTS Objective - Vital Signs/Intake and Output Vital Signs (last 24 hours): Temp Pulse Resp BP Pulse Ox 98.2 F 70 20 104/58 L 98 08/24/17 07:41 08/24/17 08:25 08/24/17 07:41 08/24/17 08:25 08/24/17 07:41 Intake and Output: Constitutional- cooperative, awake, alert Head- NCAT, PERRL Eye- PERRL, EOMI ENT- normal exam, MMM. Neck- normal inspection, supple, no JVD Respiratory- CTAB, no wheezes rales rhonchi Cardiovascular- RRR, +S1, +S2 no MRG GI/Abdominal- normal bowel sounds, soft, no mass, no hsm Skin- warm, dry Extremities Exam- normal capillary refill, normal inspection Neurological Exam- alert, awake, oriented Psych- normal mood, normal affect - Medications Medications: Current Medications Acetaminophen (Tylenol 325mg Tab) 650 mg PO Q6 PRN PRN Reason: Fever >100.4 F Al Hydrox/Mg Hydrox/Simethicone (Maalox Plus 30 Ml) 30 ml PO Q6 PRN PRN Reason: Indigestion / Heartburn Aspirin (Aspirin Chewable) 81 mg PO DAILY [facility] Last Admin: 08/24/17 08:24 Dose: 81 mg Carvedilol (Coreg) 6.25 mg PO BID [facility] Last Admin: 08/24/17 08:29 Dose: Not Given Docusate Sodium (Colace) 100 mg PO BID [facility] Last Admin: 08/24/17 08:24 Dose: 100 mg Dolutegravir Sodium (Tivicay) 50 mg PO QPM [facility] Last Admin: 08/23/17 17:27 Dose: 50 mg Emtricitabine/Tenofovir (Truvada 200 Mg-300 Mg) 1 tab PO DAILY [facility] Last Admin: 08/24/17 08:25 Dose: 1 tab Furosemide (Lasix) 20 mg PO DAILY [facility] Last Admin: 08/24/17 08:25 Dose: 20 mg Daptomycin 500 mg/ Sodium (Chloride) 100 mls @ 100 mls/hr IV Q48H [facility] Stop: 08/26/17 18:01 Last Admin: 08/23/17 17:26 Dose: 100 mls/hr Meropenem 1 gm/ Sodium (Chloride) 100 mls @ 100 mls/hr IVPB Q8 [facility] PRN Reason: Protocol Last Admin: 08/24/17 08:28 Dose: 100 mls/hr Lactobacillus Acidophilus (Bacid Acidophilus) 1 cap PO BID [facility] Last Admin: 08/24/17 08:28 Dose: 1 cap Lisinopril (Zestril) 40 mg PO DAILY [facility] Last Admin: 08/24/17 08:25 Dose: 40 mg Pravastatin Sodium (Pravachol) 80 mg PO HS [facility] Last Admin: 08/23/17 21:29 Dose: 80 mg Spironolactone (Aldactone) 25 mg PO DAILY [facility] Last Admin: 08/24/17 08:24 Dose: 25 mg Tamsulosin HCl (Flomax) 0.4 mg PO DAILY [facility] Last Admin: 08/24/17 08:25 Dose: 0.4 mg - Labs Labs: 08/21/17 06:26 08/23/17 05:45 PT 13.8 Seconds (9.8-13.1) H 08/21/17 06:26 INR 1.2 (0.9-1.2) 08/21/17 06:26 APTT 29.3 Seconds (25.6-37.1) 08/21/17 06:26 Assessment and Plan - Assessment and Plan (Free Text) Plan: 72 yo M pmhx of nonobstructive CAD, nonischemic cardiomyopathy, HIV, COPD, pulmonary fibrosis, HTN, HLD, BPH admitted for septic trochanteric bursitis and underwent partial removal of hardware with I& D of left hip with application of wound vac . At present Post op day 5 , doing well. Tmax 99.9 Cultures from left hip all growing Staph coag negative ID consulted and recommended 6 weeks of IV antibiotics On meropenem and daptomycin IV Q48 hours. Monitor renal function closely In TCU for continued PT and IV antibiotics 1.Septic Trochateric Bursitis history of L partial hip in 2013 with ORIF in [address] Gutierrez s/p partial removal of hardware with I&D of L hip with application of wound vac ID consulted Dr. Acharya and recommended assistant terminal manager IV antibiotics Wound cx positive for Staph Coag negative on meropenem and Daptomycin IV- ID consulted. monitor renal function Incentive spirometry Pain management 2.Non obstructive CAD, non ischemic cardiomyopathy continue home meds: Carvedilol 6.25 mg PO BID; Furosemide 20 mg PO QD; Spironolactone 25 mg PO QD 3. HTN continue home meds: Lisinopril 40 mg PO qDaily; Furosemide 20 mg PO QD; Spironolactone 25 mg PO QD 4. Hyponatremia due to poor sodium intake, improving - Monitor 5.Dyslipidemia on Prevastatin Sodium 80 mg PO HS 6. HIV continue home meds: Dolutegravir Sodium 50 mg PO QD; Emtricitabine/Tenofov Alafenam 25 - 200 mg PO QD 7. Moderate COPD stable incentive spirometry 8.Pulmonary fibrosis stable 9. BPH Continue: Tamulosin 0.4 mg PO QD\ 9. Acute blood loss anemia monitor for now 10.DVT prophylaxis Lovenox 40 mg
--- NOTE | 2017-08-24 10:20 | CP.PCM.PN ---
Subjective - Date & Time of Evaluation Date of Evaluation: 08/24/17 Time of Evaluation: 08:15 - Subjective Subjective: Patient seen and examined OOB ambulating with PT comfortably. No complaints of pain at this time. No new complaints. Objective - Vital Signs/Intake and Output Vital Signs (last 24 hours): Temp Pulse Resp BP Pulse Ox 98.2 F 70 20 104/58 L 98 08/24/17 07:41 08/24/17 08:25 08/24/17 07:41 08/24/17 08:25 08/24/17 07:41 - Medications Medications: Current Medications Acetaminophen (Tylenol 325mg Tab) 650 mg PO Q6 PRN PRN Reason: Fever >100.4 F Al Hydrox/Mg Hydrox/Simethicone (Maalox Plus 30 Ml) 30 ml PO Q6 PRN PRN Reason: Indigestion / Heartburn Aspirin (Aspirin Chewable) 81 mg PO DAILY [facility] Last Admin: 08/24/17 08:24 Dose: 81 mg Carvedilol (Coreg) 6.25 mg PO BID [facility] Last Admin: 08/24/17 08:29 Dose: Not Given Docusate Sodium (Colace) 100 mg PO BID [facility] Last Admin: 08/24/17 08:24 Dose: 100 mg Dolutegravir Sodium (Tivicay) 50 mg PO QPM [facility] Last Admin: 08/23/17 17:27 Dose: 50 mg Emtricitabine/Tenofovir (Truvada 200 Mg-300 Mg) 1 tab PO DAILY [facility] Last Admin: 08/24/17 08:25 Dose: 1 tab Furosemide (Lasix) 20 mg PO DAILY [facility] Last Admin: 08/24/17 08:25 Dose: 20 mg Daptomycin 500 mg/ Sodium (Chloride) 100 mls @ 100 mls/hr IV Q48H [facility] Stop: 08/26/17 18:01 Last Admin: 08/23/17 17:26 Dose: 100 mls/hr Meropenem 1 gm/ Sodium (Chloride) 100 mls @ 100 mls/hr IVPB Q8 [facility] PRN Reason: Protocol Last Admin: 08/24/17 08:28 Dose: 100 mls/hr Lactobacillus Acidophilus (Bacid Acidophilus) 1 cap PO BID [facility] Last Admin: 08/24/17 08:28 Dose: 1 cap Lisinopril (Zestril) 40 mg PO DAILY [facility] Last Admin: 08/24/17 08:25 Dose: 40 mg Pravastatin Sodium (Pravachol) 80 mg PO HS [facility] Last Admin: 08/23/17 21:29 Dose: 80 mg Spironolactone (Aldactone) 25 mg PO DAILY [facility] Last Admin: 08/24/17 08:24 Dose: 25 mg Tamsulosin HCl (Flomax) 0.4 mg PO DAILY [facility] Last Admin: 08/24/17 08:25 Dose: 0.4 mg - Labs Labs: 08/21/17 06:26 08/23/17 05:45 PT 13.8 Seconds (9.8-13.1) H 08/21/17 06:26 INR 1.2 (0.9-1.2) 08/21/17 06:26 APTT 29.3 Seconds (25.6-37.1) 08/21/17 06:26 - Constitutional Appears: No Acute Distress - ENT Exam ENT Exam: Mucous Membranes Moist - Extremities Exam Additional comments: Left hip: Prevena dressings intact. Dressings taken down revealing wound clean, dry and intact with venessa. No tenderness. Sensation intact SP/DP/TN. Motor intact EHL/FHL/gastroc/TA. Pedal pulses intact. Calves soft and NT b/l - Neurological Exam Neurological Exam: Alert, Awake, Oriented x3 - Psychiatric Exam Psychiatric exam: Normal Affect, Normal Mood Assessment and Plan (1) Other infective bursitis, left hip Assessment & Plan: Patient is POD#7 s/p L hip I&D and excision of trochanteric bursitis -Prevena dressings taken down, Dry dressings applied -Plan to remove staple in 10-14 days if still in house -PT/OT -DVT ppx -ABX as per ID -Patient's case and plan was d/w Dr. Gutierrez in agreement Status: Acute
[2017-08-24] MEDS ORDERED: Oxycodone/Acetaminophen 5/325 mg Tab PO PRN (14:32)
[2017-08-24] MEDS: Pravastatin Sodium 40 MG TAB PO SCH (22:13)
[2017-08-25] MEDS: Meropenem 1 GM in Sodium Chloride 0.9% 100 ML IVPB SCH ×3 (01:00→16:46)
[2017-08-25] MEDS: Lactobacillus Acidophilus 500 MU Cap PO SCH ×2 (08:16→16:47)
[2017-08-25] MEDS: Enoxaparin 40 mg Syringe SC SCH (08:17)
[2017-08-25] MEDS: Emtricitabine-Tenofovir 200 mg-300 mg Tab PO SCH (08:18)
[2017-08-25] MEDS: DAPTOmycin 500 MG in Sodium Chloride 0.9% 100 ML IV SCH (17:00)
--- NOTE | 2017-08-25 18:27 | CP.PCM.PN ---
Subjective - Date & Time of Evaluation Date of Evaluation: 08/25/17 Time of Evaluation: 12:00 - Subjective Subjective: no acute complaints of hip pain Objective - Vital Signs/Intake and Output Vital Signs (last 24 hours): Temp Pulse Resp BP Pulse Ox 98.1 F 85 20 109/69 96 08/25/17 16:47 08/25/17 16:49 08/25/17 16:47 08/25/17 16:49 08/25/17 16:47 - Medications Medications: Current Medications Acetaminophen (Tylenol 325mg Tab) 650 mg PO Q6 PRN PRN Reason: Fever >100.4 F Al Hydrox/Mg Hydrox/Simethicone (Maalox Plus 30 Ml) 30 ml PO Q6 PRN PRN Reason: Indigestion / Heartburn Aspirin (Aspirin Chewable) 81 mg PO DAILY [facility] Last Admin: 08/25/17 08:18 Dose: 81 mg Carvedilol (Coreg) 6.25 mg PO BID [facility] Last Admin: 08/25/17 16:49 Dose: Not Given Docusate Sodium (Colace) 100 mg PO BID [facility] Last Admin: 08/25/17 16:47 Dose: Not Given Dolutegravir Sodium (Tivicay) 50 mg PO QPM [facility] Last Admin: 08/25/17 17:00 Dose: 50 mg Emtricitabine/Tenofovir (Truvada 200 Mg-300 Mg) 1 tab PO DAILY [facility] Last Admin: 08/25/17 08:18 Dose: 1 tab Enoxaparin Sodium (Lovenox) 40 mg SC DAILY [facility] PRN Reason: Protocol Last Admin: 08/25/17 08:17 Dose: 40 mg Furosemide (Lasix) 20 mg PO DAILY [facility] Last Admin: 08/25/17 08:23 Dose: 20 mg Daptomycin 500 mg/ Sodium (Chloride) 100 mls @ 100 mls/hr IV Q48H [facility] Stop: 08/26/17 18:01 Last Admin: 08/25/17 17:00 Dose: 100 mls/hr Meropenem 1 gm/ Sodium (Chloride) 100 mls @ 100 mls/hr IVPB Q8 [facility] PRN Reason: Protocol Last Admin: 08/25/17 16:46 Dose: 100 mls/hr Lactobacillus Acidophilus (Bacid Acidophilus) 1 cap PO BID [facility] Last Admin: 02/23/18 16:47 Dose: 1 cap Lisinopril (Zestril) 40 mg PO DAILY [facility] Last Admin: 08/25/17 08:23 Dose: 40 mg Oxycodone/Acetaminophen (Percocet 5/325 Mg Tab) 1 tab PO Q4 PRN PRN Reason: Pain, moderate (4-7) Stop: 08/27/17 14:33 Pravastatin Sodium (Pravachol) 80 mg PO HS [facility] Last Admin: 08/24/17 22:13 Dose: 80 mg Spironolactone (Aldactone) 25 mg PO DAILY [facility] Last Admin: 08/25/17 08:17 Dose: 25 mg Tamsulosin HCl (Flomax) 0.4 mg PO DAILY [facility] Last Admin: 08/25/17 08:18 Dose: 0.4 mg - Labs Labs: 08/21/17 06:26 08/23/17 05:45 PT 13.8 Seconds (9.8-13.1) H 08/21/17 06:26 INR 1.2 (0.9-1.2) 08/21/17 06:26 APTT 29.3 Seconds (25.6-37.1) 08/21/17 06:26 - Head Exam Head Exam: ATRAUMATIC, NORMAL INSPECTION, NORMOCEPHALIC - Eye Exam Eye Exam: EOMI, Normal appearance Pupil Exam: NORMAL ACCOMODATION - ENT Exam ENT Exam: Mucous Membranes Moist, Normal Exam - Neck Exam Neck Exam: Normal Inspection - Respiratory Exam Respiratory Exam: Clear to Ausculation Bilateral - Cardiovascular Exam Cardiovascular Exam: REGULAR RHYTHM - GI/Abdominal Exam GI & Abdominal Exam: Normal Bowel Sounds - Rectal Exam Rectal Exam: NORMAL INSPECTION - Extremities Exam Extremities Exam: Full ROM, Normal Capillary Refill - Back Exam Back Exam: NORMAL INSPECTION - Neurological Exam Neurological Exam: Alert, Awake Neuro motor strength exam: Left Upper Extremity: 4, Right Upper Extremity: 4, Left Lower Extremity: 3, Right Lower Extremity: 4 - Psychiatric Exam Psychiatric exam: Normal Affect, Normal Mood - Skin Skin Exam: Dry, Intact Assessment and Plan (1) Other infective bursitis, left hip Assessment & Plan: plan to monitor the skin, ID hip region, physical, and occupational for ROM, Transfers and gait. Monitor need for pain meds Status: Acute (2) Acute blood loss anemia Status: Acute (3) Acute urinary retention Status: Acute (4) COPD (chronic obstructive pulmonary disease) Status: Acute (5) Closed left hip fracture Status: Acute (6) Diarrhea Status: Acute (7) Fever Status: Acute (8) Fracture, hip Status: Acute
[2017-08-25] MEDS: Pravastatin Sodium 40 MG TAB PO SCH (21:03)
[2017-08-26] MEDS: Meropenem 1 GM in Sodium Chloride 0.9% 100 ML IVPB SCH ×3 (00:25→16:47)
[2017-08-26] MEDS: Emtricitabine-Tenofovir 200 mg-300 mg Tab PO SCH (08:38)
[2017-08-26] MEDS: Enoxaparin 40 mg Syringe SC SCH (08:39)
[2017-08-26] MEDS: Lactobacillus Acidophilus 500 MU Cap PO SCH ×2 (08:44→16:47)
--- NOTE | 2017-08-26 19:39 | CP.PCM.PN ---
Subjective - Date & Time of Evaluation Date of Evaluation: 08/26/17 Time of Evaluation: 19:35 - Subjective Subjective: I D NOTE RENAL FUNCTION IS STABLE CD4:650, 37% CD4 CELLS VIRAL LOAD IS <20(UNDECTABLE) CONTINUE CUBICIN CPK,CMP,CBC ORDERED Objective - Vital Signs/Intake and Output Vital Signs (last 24 hours): Temp Pulse Resp BP Pulse Ox 97.5 F L 88 20 101/51 L 99 08/26/17 15:51 08/26/17 17:08 08/26/17 15:51 08/26/17 17:08 08/26/17 15:51 - Medications Medications: Current Medications Acetaminophen (Tylenol 325mg Tab) 650 mg PO Q6 PRN PRN Reason: Fever >100.4 F Al Hydrox/Mg Hydrox/Simethicone (Maalox Plus 30 Ml) 30 ml PO Q6 PRN PRN Reason: Indigestion / Heartburn Aspirin (Aspirin Chewable) 81 mg PO DAILY [facility] Last Admin: 08/26/17 08:38 Dose: 81 mg Carvedilol (Coreg) 6.25 mg PO BID [facility] Last Admin: 08/26/17 17:08 Dose: 6.25 mg Docusate Sodium (Colace) 100 mg PO BID [facility] Last Admin: 08/26/17 17:04 Dose: Not Given Dolutegravir Sodium (Tivicay) 50 mg PO QPM [facility] Last Admin: 08/26/17 17:01 Dose: 50 mg Emtricitabine/Tenofovir (Truvada 200 Mg-300 Mg) 1 tab PO DAILY [facility] Last Admin: 08/26/17 08:38 Dose: 1 tab Enoxaparin Sodium (Lovenox) 40 mg SC DAILY [facility] PRN Reason: Protocol Last Admin: 08/26/17 08:39 Dose: 40 mg Furosemide (Lasix) 20 mg PO DAILY [facility] Last Admin: 08/26/17 08:39 Dose: 20 mg Meropenem 1 gm/ Sodium (Chloride) 100 mls @ 100 mls/hr IVPB Q8 [facility] PRN Reason: Protocol Last Admin: 08/26/17 16:47 Dose: 100 mls/hr Lactobacillus Acidophilus (Bacid Acidophilus) 1 cap PO BID [facility] Last Admin: 08/26/17 16:47 Dose: 1 cap Lisinopril (Zestril) 40 mg PO DAILY [facility] Last Admin: 08/26/17 08:40 Dose: 40 mg Oxycodone/Acetaminophen (Percocet 5/325 Mg Tab) 1 tab PO Q4 PRN PRN Reason: Pain, moderate (4-7) Stop: 08/27/17 14:33 Pravastatin Sodium (Pravachol) 80 mg PO HS [facility] Last Admin: 08/25/17 21:03 Dose: 80 mg Spironolactone (Aldactone) 25 mg PO DAILY [facility] Last Admin: 08/26/17 08:41 Dose: 25 mg Tamsulosin HCl (Flomax) 0.4 mg PO DAILY [facility] Last Admin: 08/26/17 08:39 Dose: 0.4 mg - Labs Labs: 08/21/17 06:26 08/23/17 05:45 PT 13.8 Seconds (9.8-13.1) H 08/21/17 06:26 INR 1.2 (0.9-1.2) 08/21/17 06:26 APTT 29.3 Seconds (25.6-37.1) 08/21/17 06:26
[2017-08-26] MEDS ORDERED: DAPTOmycin 500 MG in Sodium Chloride 0.9% 100 ML IV SCH (20:00)
[2017-08-26] MEDS ORDERED: DAPTOmycin 500 mg Inj (Cubicin) IVP SCH (20:00)
[2017-08-26] MEDS: Pravastatin Sodium 40 MG TAB PO SCH (21:23)
[2017-08-27] MEDS: Meropenem 1 GM in Sodium Chloride 0.9% 100 ML IVPB SCH ×3 (00:22→16:45)
[2017-08-27 08:00] LABS: BASO % 0.8 % (0.0-2.0); EOS # 0.1 K/uL (0.0-0.7); LYMPH # 1.5 K/uL (1.0-4.3); LYMPH % 28.5 % (20.0-40.0); MEAN CORPUSCULAR HEMOGLOBIN 37.2 pg (27.0-31.0); MEAN CORPUSCULAR HGB CONC 35.4 g/dL (33.0-37.0); MONO # 0.5 K/uL (0.0-0.8); MONO % 9.2 % (0.0-10.0); NEUT # 3.2 K/uL (1.8-7.0); NEUT % 59.5 % (50.0-75.0); NRBC % 0.1 % (0.0-0.0); RBC 2.94 Mil/uL (4.40-5.90); RED CELL DISTRIBUTION WIDTH 12.7 % (11.5-14.5); WHITE BLOOD COUNT 5.4 K/uL (4.8-10.8)
[2017-08-27 08:07] LABS: MEAN CELL VOLUME 105.1 fl (80.0-94.0)
[2017-08-27 08:24] LABS: ALB/GLOB RATIO 0.9 (1.0-2.1); ALBUMIN 3.5 g/dL (3.5-5.0); ALT/SGPT 26 U/L (21-72); AST/SGOT 32 U/L (17-59); BLOOD UREA NITROGEN 14 mg/dl (9-20); CALCIUM 8.7 mg/dL (8.4-10.2); GFR AFRICAN-AMERICAN > 60; GFR NON-AFRICAN AMERICAN > 60
[2017-08-27] MEDS: Lactobacillus Acidophilus 500 MU Cap PO SCH ×2 (08:52→16:45)
[2017-08-27] MEDS: Emtricitabine-Tenofovir 200 mg-300 mg Tab PO SCH (08:56)
[2017-08-27] MEDS: Enoxaparin 40 mg Syringe SC SCH (08:57)
[2017-08-27] MEDS: DAPTOmycin 500 MG in Sodium Chloride 0.9% 100 ML IV SCH (20:30)
[2017-08-27] MEDS: Pravastatin Sodium 40 MG TAB PO SCH (21:43)
[2017-08-28] MEDS: Meropenem 1 GM in Sodium Chloride 0.9% 100 ML IVPB SCH ×3 (00:17→16:02)
[2017-08-28] MEDS: Emtricitabine-Tenofovir 200 mg-300 mg Tab PO SCH (08:12)
[2017-08-28] MEDS: Lactobacillus Acidophilus 500 MU Cap PO SCH ×2 (08:12→16:03)
[2017-08-28] MEDS: Enoxaparin 40 mg Syringe SC SCH (08:13)
--- NOTE | 2017-08-28 15:26 | CP.PCM.PN ---
Subjective - Date & Time of Evaluation Date of Evaluation: 08/28/17 Time of Evaluation: 15:24 - Subjective Subjective: Patient states pain is improving. Denies numbness/tingling. walking independently with walker. Objective - Vital Signs/Intake and Output Vital Signs (last 24 hours): Temp Pulse Resp BP Pulse Ox 98.2 F 82 20 102/66 98 08/28/17 07:54 08/28/17 08:14 08/28/17 07:54 08/28/17 08:14 08/28/17 07:54 - Medications Medications: Current Medications Acetaminophen (Tylenol 325mg Tab) 650 mg PO Q6 PRN PRN Reason: Fever >100.4 F Al Hydrox/Mg Hydrox/Simethicone (Maalox Plus 30 Ml) 30 ml PO Q6 PRN PRN Reason: Indigestion / Heartburn Aspirin (Aspirin Chewable) 81 mg PO DAILY [facility] Last Admin: 08/28/17 08:13 Dose: 81 mg Carvedilol (Coreg) 6.25 mg PO BID [facility] Last Admin: 08/28/17 08:10 Dose: Not Given Docusate Sodium (Colace) 100 mg PO BID [facility] Last Admin: 08/28/17 08:10 Dose: Not Given Dolutegravir Sodium (Tivicay) 50 mg PO QPM [facility] Last Admin: 08/27/17 17:00 Dose: 50 mg Emtricitabine/Tenofovir (Truvada 200 Mg-300 Mg) 1 tab PO DAILY [facility] Last Admin: 08/28/17 08:12 Dose: 1 tab Furosemide (Lasix) 20 mg PO DAILY [facility] Last Admin: 08/28/17 08:13 Dose: 20 mg Meropenem 1 gm/ Sodium (Chloride) 100 mls @ 100 mls/hr IVPB Q8 [facility] PRN Reason: Protocol Last Admin: 08/28/17 08:12 Dose: 100 mls/hr Daptomycin 500 mg/ Sodium (Chloride) 100 mls @ 100 mls/hr IV Q48H [facility] Stop: 09/01/17 20:01 Last Admin: 08/27/17 20:30 Dose: 100 mls/hr Lactobacillus Acidophilus (Bacid Acidophilus) 1 cap PO BID [facility] Last Admin: 08/28/17 08:12 Dose: 1 cap Lisinopril (Zestril) 40 mg PO DAILY [facility] Last Admin: 08/28/17 08:14 Dose: 40 mg Pravastatin Sodium (Pravachol) 80 mg PO HS [facility] Last Admin: 08/27/17 21:43 Dose: 80 mg Spironolactone (Aldactone) 25 mg PO DAILY [facility] Last Admin: 08/28/17 08:13 Dose: 25 mg Tamsulosin HCl (Flomax) 0.4 mg PO DAILY [facility] Last Admin: 08/28/17 08:13 Dose: 0.4 mg - Labs Labs: 08/27/17 07:05 08/27/17 07:05 PT 13.8 Seconds (9.8-13.1) H 08/21/17 06:26 INR 1.2 (0.9-1.2) 08/21/17 06:26 APTT 29.3 Seconds (25.6-37.1) 08/21/17 06:26 - Extremities Exam Additional comments: left hip: incision intact, small amt of sang drainage distal incision on dressing. No erythema. +ROM ankle/toes, sensat ion intact, +DP/PT Pulses calves soft NT neg homans Assessment and Plan (1) Other infective bursitis, left hip Assessment & Plan: POD# 11 s/p left hip trochanteric bursa excision and I&D -cont PT/OT -PICC inplace d/c planned later this week cont VTE proph will plan staple removal prior to d/c d/w Dr. Gutierrez, agrees with above Status: Acute
[2017-08-28] MEDS: Pravastatin Sodium 40 MG TAB PO SCH (21:56)
[2017-08-29] MEDS: Meropenem 1 GM in Sodium Chloride 0.9% 100 ML IVPB SCH ×3 (01:05→16:35)
[2017-08-29] MEDS: Lactobacillus Acidophilus 500 MU Cap PO SCH ×2 (08:13→16:37)
[2017-08-29] MEDS: Emtricitabine-Tenofovir 200 mg-300 mg Tab PO SCH (08:14)
--- NOTE | 2017-08-29 10:28 | CP.PCM.PN ---
Subjective - Date & Time of Evaluation Date of Evaluation: 08/29/17 Time of Evaluation: 10:15 - Subjective Subjective: Patient seen and examined. Claimed he is doing okay and had no pain since 4 days ago. Objective - Vital Signs/Intake and Output Vital Signs (last 24 hours): Temp Pulse Resp BP Pulse Ox 99.1 F 92 H 20 99/58 L 99 08/29/17 07:43 08/29/17 08:14 08/29/17 07:43 08/29/17 08:14 08/29/17 07:43 - Medications Medications: Current Medications Acetaminophen (Tylenol 325mg Tab) 650 mg PO Q6 PRN PRN Reason: Fever >100.4 F Al Hydrox/Mg Hydrox/Simethicone (Maalox Plus 30 Ml) 30 ml PO Q6 PRN PRN Reason: Indigestion / Heartburn Aspirin (Aspirin Chewable) 81 mg PO DAILY [facility] Last Admin: 08/29/17 08:13 Dose: 81 mg Carvedilol (Coreg) 6.25 mg PO BID [facility] Last Admin: 08/29/17 08:12 Dose: Not Given Docusate Sodium (Colace) 100 mg PO BID [facility] Last Admin: 08/29/17 08:13 Dose: Not Given Dolutegravir Sodium (Tivicay) 50 mg PO QPM [facility] Last Admin: 08/28/17 17:00 Dose: 50 mg Emtricitabine/Tenofovir (Truvada 200 Mg-300 Mg) 1 tab PO DAILY [facility] Last Admin: 08/29/17 08:14 Dose: 1 tab Enoxaparin Sodium (Lovenox) 40 mg SC DAILY [facility] PRN Reason: Protocol Furosemide (Lasix) 20 mg PO DAILY [facility] Last Admin: 08/29/17 08:13 Dose: 20 mg Meropenem 1 gm/ Sodium (Chloride) 100 mls @ 100 mls/hr IVPB Q8 [facility] PRN Reason: Protocol Last Admin: 08/29/17 08:13 Dose: 100 mls/hr Daptomycin 500 mg/ Sodium (Chloride) 100 mls @ 100 mls/hr IV Q48H [facility] Stop: 09/01/17 20:01 Last Admin: 08/27/17 20:30 Dose: 100 mls/hr Lactobacillus Acidophilus (Bacid Acidophilus) 1 cap PO BID [facility] Last Admin: 08/29/17 08:13 Dose: 1 cap Lisinopril (Zestril) 40 mg PO DAILY [facility] Last Admin: 08/29/17 08:14 Dose: 40 mg Pravastatin Sodium (Pravachol) 80 mg PO HS [facility] Last Admin: 08/28/17 21:56 Dose: 80 mg Spironolactone (Aldactone) 25 mg PO DAILY [facility] Last Admin: 08/29/17 08:13 Dose: 25 mg Tamsulosin HCl (Flomax) 0.4 mg PO DAILY [facility] Last Admin: 08/29/17 08:13 Dose: 0.4 mg - Labs Labs: 08/27/17 07:05 08/27/17 07:05 PT 13.8 Seconds (9.8-13.1) H 08/21/17 06:26 INR 1.2 (0.9-1.2) 08/21/17 06:26 APTT 29.3 Seconds (25.6-37.1) 08/21/17 06:26 - Constitutional Appears: No Acute Distress - Head Exam Head Exam: ATRAUMATIC - Eye Exam Eye Exam: absent: Scleral icterus - ENT Exam ENT Exam: Mucous Membranes Moist - Neck Exam Neck Exam: absent: Meningismus - Respiratory Exam Respiratory Exam: absent: Rhonchi, Wheezes, Respiratory Distress - Cardiovascular Exam Cardiovascular Exam: REGULAR RHYTHM, +S1, +S2 - GI/Abdominal Exam GI & Abdominal Exam: Soft. absent: Tenderness - Rectal Exam Rectal Exam: Deferred - Neurological Exam Neurological Exam: Alert, Oriented x3 - Psychiatric Exam Psychiatric exam: Normal Affect - Skin Skin Exam: Dry, Intact Assessment and Plan - Assessment and Plan (Free Text) Assessment: 72 yo male with history of CAD, Cardiomyopathy, HIV, COPD, pulmonary fibrosis, HTN, HLD and BPH was admitted because of septic trochanteric bursitis and had undergone partial removal of hardware with I&D of left hip and application of wound vac. Wound cultures from left hip grew Staph coagulase negative ID was consulted and he recommended 6 weeks of IV Meropenem and Daptomycin. He was transferred to TCU for continuation of IV antibiotics and therapy. 1. Septic Trochateric Bursitis history of left partial hip replacement in 2014 and ORIF in 2017 s/p partial removal of hardware with I&D of L hip with application of wound vac POD # 12 Dr. Gutierrez on ortho consult Dr. Acharya on ID consult Wound culture grew Staph Coag negative continue IV Meropenem and Daptomycin IV monitor renal function 2. CAD continue Carvedilol, ASA and Pravastatin 3. Cardiomyopathy continue Lisinopril, Furosemide and Spironolactone 4. HTN BP stable on Lisinopril and Carvedilol also on Furosemide and Spirinolactone 5. Hyponatremia corrected 6. HIV stable continue Dolutegravir and Emtricitabine/Tenofov Alafenam 7. COPD asymptomatic 8.Pulmonary fibrosis asymptomatic 9. BPH continue Tamsulosin 9. Anemia secondary to blood loss stable 10. DVT prophylaxis on Lovenox
[2017-08-29 11:43] LABS: ALB/GLOB RATIO 0.8 (1.0-2.1); ALBUMIN 3.5 g/dL (3.5-5.0); ALT/SGPT 24 U/L (21-72); AST/SGOT 27 U/L (17-59); BLOOD UREA NITROGEN 18 mg/dl (9-20); CALCIUM 8.8 mg/dL (8.4-10.2); GFR AFRICAN-AMERICAN > 60; GFR NON-AFRICAN AMERICAN > 60
--- NOTE | 2017-08-29 14:21 | CP.PCM.PN ---
Subjective - Date & Time of Evaluation Date of Evaluation: 08/27/17 Time of Evaluation: 12:00 - Subjective Subjective: nol acute complaints at present Objective - Vital Signs/Intake and Output Vital Signs (last 24 hours): Temp Pulse Resp BP Pulse Ox 99.1 F 92 H 20 99/58 L 99 08/29/17 07:43 08/29/17 08:14 08/29/17 07:43 08/29/17 08:14 08/29/17 07:43 - Medications Medications: Current Medications Acetaminophen (Tylenol 325mg Tab) 650 mg PO Q6 PRN PRN Reason: Fever >100.4 F Al Hydrox/Mg Hydrox/Simethicone (Maalox Plus 30 Ml) 30 ml PO Q6 PRN PRN Reason: Indigestion / Heartburn Aspirin (Aspirin Chewable) 81 mg PO DAILY [facility] Last Admin: 08/29/17 08:13 Dose: 81 mg Carvedilol (Coreg) 6.25 mg PO BID [facility] Last Admin: 08/29/17 08:12 Dose: Not Given Docusate Sodium (Colace) 100 mg PO BID [facility] Last Admin: 08/29/17 08:13 Dose: Not Given Dolutegravir Sodium (Tivicay) 50 mg PO QPM [facility] Last Admin: 08/28/17 17:00 Dose: 50 mg Emtricitabine/Tenofovir (Truvada 200 Mg-300 Mg) 1 tab PO DAILY [facility] Last Admin: 08/29/17 08:14 Dose: 1 tab Enoxaparin Sodium (Lovenox) 40 mg SC DAILY [facility] PRN Reason: Protocol Furosemide (Lasix) 20 mg PO DAILY [facility] Last Admin: 08/29/17 08:13 Dose: 20 mg Meropenem 1 gm/ Sodium (Chloride) 100 mls @ 100 mls/hr IVPB Q8 [facility] PRN Reason: Protocol Last Admin: 08/29/17 08:13 Dose: 100 mls/hr Daptomycin 500 mg/ Sodium (Chloride) 100 mls @ 100 mls/hr IV Q48H [facility] Stop: 09/01/17 20:01 Last Admin: 08/27/17 20:30 Dose: 100 mls/hr Lactobacillus Acidophilus (Bacid Acidophilus) 1 cap PO BID [facility] Last Admin: 08/29/17 08:13 Dose: 1 cap Lisinopril (Zestril) 40 mg PO DAILY [facility] Last Admin: 08/29/17 08:14 Dose: 40 mg Pravastatin Sodium (Pravachol) 80 mg PO HS [facility] Last Admin: 08/28/17 21:56 Dose: 80 mg Spironolactone (Aldactone) 25 mg PO DAILY [facility] Last Admin: 08/29/17 08:13 Dose: 25 mg Tamsulosin HCl (Flomax) 0.4 mg PO DAILY [facility] Last Admin: 08/29/17 08:13 Dose: 0.4 mg - Labs Labs: 08/27/17 07:05 08/29/17 11:00 PT 13.8 Seconds (9.8-13.1) H 08/21/17 06:26 INR 1.2 (0.9-1.2) 08/21/17 06:26 APTT 29.3 Seconds (25.6-37.1) 08/21/17 06:26 - Head Exam Head Exam: ATRAUMATIC, NORMAL INSPECTION, NORMOCEPHALIC - Eye Exam Eye Exam: EOMI, Normal appearance Pupil Exam: NORMAL ACCOMODATION - ENT Exam ENT Exam: Mucous Membranes Moist, Normal Exam - Neck Exam Neck Exam: Full ROM, Normal Inspection - Respiratory Exam Respiratory Exam: Clear to Ausculation Bilateral, NORMAL BREATHING PATTERN - Cardiovascular Exam Cardiovascular Exam: REGULAR RHYTHM - GI/Abdominal Exam GI & Abdominal Exam: Soft, Normal Bowel Sounds. absent: Tenderness - Rectal Exam Rectal Exam: NORMAL INSPECTION - Exam External exam: NORMAL EXTERNAL EXAM - Extremities Exam Extremities Exam: Full ROM, Normal Inspection - Back Exam Back Exam: NORMAL INSPECTION - Neurological Exam Neurological Exam: Alert, Awake Neuro motor strength exam: Left Upper Extremity: 4, Right Upper Extremity: 4, Left Lower Extremity: 4, Right Lower Extremity: 3 - Psychiatric Exam Psychiatric exam: Normal Affect, Normal Mood - Skin Skin Exam: Rash Assessment and Plan (1) Other infective bursitis, left hip Assessment & Plan: plan for range of motion, strenghtening , transfers, gait monitor skin and pain Status: Acute (2) Acute blood loss anemia Status: Acute (3) Acute urinary retention Status: Acute (4) COPD (chronic obstructive pulmonary disease) Status: Acute (5) Closed left hip fracture Status: Acute (6) Diarrhea Status: Acute (7) Fever Status: Acute (8) Fracture, hip Status: Acute
--- NOTE | 2017-08-29 19:08 | CP.PCM.PN ---
Subjective - Date & Time of Evaluation Date of Evaluation: 08/29/17 Time of Evaluation: 10:00 - Subjective Subjective: no complaints of hip pain Objective - Vital Signs/Intake and Output Vital Signs (last 24 hours): Temp Pulse Resp BP Pulse Ox 97.9 F 88 20 96/58 L 99 08/29/17 17:03 08/29/17 17:03 08/29/17 17:03 08/29/17 17:03 08/29/17 17:03 - Medications Medications: Current Medications Acetaminophen (Tylenol 325mg Tab) 650 mg PO Q6 PRN PRN Reason: Fever >100.4 F Al Hydrox/Mg Hydrox/Simethicone (Maalox Plus 30 Ml) 30 ml PO Q6 PRN PRN Reason: Indigestion / Heartburn Aspirin (Aspirin Chewable) 81 mg PO DAILY [facility] Last Admin: 08/29/17 08:13 Dose: 81 mg Carvedilol (Coreg) 6.25 mg PO BID [facility] Last Admin: 08/29/17 16:35 Dose: Not Given Docusate Sodium (Colace) 100 mg PO BID [facility] Last Admin: 08/29/17 16:35 Dose: Not Given Dolutegravir Sodium (Tivicay) 50 mg PO QPM [facility] Last Admin: 08/29/17 17:04 Dose: 50 mg Emtricitabine/Tenofovir (Truvada 200 Mg-300 Mg) 1 tab PO DAILY [facility] Last Admin: 08/29/17 08:14 Dose: 1 tab Enoxaparin Sodium (Lovenox) 40 mg SC DAILY [facility] PRN Reason: Protocol Furosemide (Lasix) 20 mg PO DAILY [facility] Last Admin: 08/29/17 08:13 Dose: 20 mg Meropenem 1 gm/ Sodium (Chloride) 100 mls @ 100 mls/hr IVPB Q8 [facility] PRN Reason: Protocol Last Admin: 08/29/17 16:35 Dose: 100 mls/hr Daptomycin 500 mg/ Sodium (Chloride) 100 mls @ 100 mls/hr IV Q48H [facility] Stop: 09/01/17 20:01 Last Admin: 08/27/17 20:30 Dose: 100 mls/hr Lactobacillus Acidophilus (Bacid Acidophilus) 1 cap PO BID [facility] Last Admin: 08/29/17 16:37 Dose: 1 cap Lisinopril (Zestril) 40 mg PO DAILY [facility] Last Admin: 08/29/17 08:14 Dose: 40 mg Pravastatin Sodium (Pravachol) 80 mg PO HS [facility] Last Admin: 08/28/17 21:56 Dose: 80 mg Spironolactone (Aldactone) 25 mg PO DAILY [facility] Last Admin: 08/29/17 08:13 Dose: 25 mg Tamsulosin HCl (Flomax) 0.4 mg PO DAILY [facility] Last Admin: 08/29/17 08:13 Dose: 0.4 mg - Labs Labs: 08/27/17 07:05 08/29/17 11:00 PT 13.8 Seconds (9.8-13.1) H 08/21/17 06:26 INR 1.2 (0.9-1.2) 08/21/17 06:26 APTT 29.3 Seconds (25.6-37.1) 08/21/17 06:26 - Head Exam Head Exam: ATRAUMATIC, NORMAL INSPECTION, NORMOCEPHALIC - Eye Exam Eye Exam: EOMI, Normal appearance, PERRL - ENT Exam ENT Exam: Mucous Membranes Moist, Normal Exam - Neck Exam Neck Exam: Full ROM, Normal Inspection. absent: Lymphadenopathy - Respiratory Exam Respiratory Exam: Clear to Ausculation Bilateral, NORMAL BREATHING PATTERN - Cardiovascular Exam Cardiovascular Exam: REGULAR RHYTHM, +S1, +S2. absent: Murmur - GI/Abdominal Exam GI & Abdominal Exam: Soft, Normal Bowel Sounds. absent: Tenderness - Rectal Exam Rectal Exam: NORMAL INSPECTION - Exam External exam: NORMAL EXTERNAL EXAM - Extremities Exam Extremities Exam: Full ROM, Normal Capillary Refill, Normal Inspection. absent : Joint Swelling, Pedal Edema - Back Exam Back Exam: NORMAL INSPECTION - Neurological Exam Neurological Exam: Alert, Awake Neuro motor strength exam: Left Upper Extremity: 4, Right Upper Extremity: 4, Left Lower Extremity: 3, Right Lower Extremity: 4 - Psychiatric Exam Psychiatric exam: Normal Affect, Normal Mood Assessment and Plan (1) Other infective bursitis, left hip Assessment & Plan: plan to monitor the infection, Staph, status post wound vac . Physical and occupational therapy Possible Dc for september 01 Status: Acute (2) Acute blood loss anemia Status: Acute (3) Acute urinary retention Status: Acute (4) COPD (chronic obstructive pulmonary disease) Status: Acute (5) Closed left hip fracture Status: Acute (6) Diarrhea Status: Acute (7) Fever Status: Acute (8) Fracture, hip Status: Acute
[2017-08-29] MEDS: DAPTOmycin 500 MG in Sodium Chloride 0.9% 100 ML IV SCH (20:49)
[2017-08-29] MEDS: Pravastatin Sodium 40 MG TAB PO SCH (21:00)
[2017-08-30] MEDS: Meropenem 1 GM in Sodium Chloride 0.9% 100 ML IVPB SCH ×3 (00:25→17:25)
[2017-08-30] MEDS: Enoxaparin 40 mg Syringe SC SCH (09:06)
[2017-08-30] MEDS: Lactobacillus Acidophilus 500 MU Cap PO SCH ×2 (09:07→17:26)
[2017-08-30] MEDS: Emtricitabine-Tenofovir 200 mg-300 mg Tab PO SCH (09:09)
--- NOTE | 2017-08-30 14:07 | CP.PCM.PN ---
Subjective - Date & Time of Evaluation Date of Evaluation: 08/30/17 Time of Evaluation: 09:00 - Subjective Subjective: no acute neck, back or leg pain Objective - Vital Signs/Intake and Output Vital Signs (last 24 hours): Temp Pulse Resp BP Pulse Ox 98.2 F 104 H 18 94/55 L 97 08/30/17 09:00 08/30/17 09:32 08/30/17 09:00 08/30/17 09:32 08/30/17 09:00 - Medications Medications: Current Medications Acetaminophen (Tylenol 325mg Tab) 650 mg PO Q6 PRN PRN Reason: Fever >100.4 F Al Hydrox/Mg Hydrox/Simethicone (Maalox Plus 30 Ml) 30 ml PO Q6 PRN PRN Reason: Indigestion / Heartburn Aspirin (Aspirin Chewable) 81 mg PO DAILY [facility] Last Admin: 08/30/17 09:07 Dose: 81 mg Carvedilol (Coreg) 6.25 mg PO BID [facility] Last Admin: 08/30/17 09:32 Dose: 6.25 mg Docusate Sodium (Colace) 100 mg PO BID [facility] Last Admin: 08/30/17 09:33 Dose: Not Given Dolutegravir Sodium (Tivicay) 50 mg PO QPM [facility] Last Admin: 08/29/17 17:04 Dose: 50 mg Emtricitabine/Tenofovir (Truvada 200 Mg-300 Mg) 1 tab PO DAILY [facility] Last Admin: 08/30/17 09:09 Dose: 1 tab Enoxaparin Sodium (Lovenox) 40 mg SC DAILY [facility] PRN Reason: Protocol Last Admin: 08/30/17 09:06 Dose: 40 mg Furosemide (Lasix) 20 mg PO DAILY [facility] Last Admin: 08/30/17 09:32 Dose: 20 mg Meropenem 1 gm/ Sodium (Chloride) 100 mls @ 100 mls/hr IVPB Q8 [facility] PRN Reason: Protocol Last Admin: 08/30/17 09:06 Dose: 100 mls/hr Daptomycin 500 mg/ Sodium (Chloride) 100 mls @ 100 mls/hr IV Q48H [facility] Stop: 09/01/17 20:01 Last Admin: 08/29/17 20:49 Dose: 100 mls/hr Lactobacillus Acidophilus (Bacid Acidophilus) 1 cap PO BID [facility] Last Admin: 08/30/17 09:07 Dose: 1 cap Lisinopril (Zestril) 40 mg PO DAILY [facility] Last Admin: 08/30/17 09:30 Dose: Not Given Pravastatin Sodium (Pravachol) 80 mg PO HS [facility] Last Admin: 08/29/17 21:00 Dose: 80 mg Spironolactone (Aldactone) 25 mg PO DAILY [facility] Last Admin: 08/30/17 09:32 Dose: 25 mg Tamsulosin HCl (Flomax) 0.4 mg PO DAILY [facility] Last Admin: 08/30/17 09:08 Dose: 0.4 mg - Labs Labs: 08/27/17 07:05 08/29/17 11:00 PT 13.8 Seconds (9.8-13.1) H 08/21/17 06:26 INR 1.2 (0.9-1.2) 08/21/17 06:26 APTT 29.3 Seconds (25.6-37.1) 08/21/17 06:26 - Head Exam Head Exam: ATRAUMATIC, NORMAL INSPECTION, NORMOCEPHALIC - Eye Exam Eye Exam: EOMI, Normal appearance, PERRL Pupil Exam: NORMAL ACCOMODATION - ENT Exam ENT Exam: Mucous Membranes Moist, Normal Exam - Neck Exam Neck Exam: Normal Inspection - Respiratory Exam Respiratory Exam: Clear to Ausculation Bilateral, NORMAL BREATHING PATTERN - Cardiovascular Exam Cardiovascular Exam: REGULAR RHYTHM - GI/Abdominal Exam GI & Abdominal Exam: Soft, Normal Bowel Sounds - Rectal Exam Rectal Exam: NORMAL INSPECTION - Exam External exam: NORMAL EXTERNAL EXAM - Extremities Exam Extremities Exam: Full ROM, Normal Capillary Refill, Normal Inspection - Back Exam Back Exam: NORMAL INSPECTION - Neurological Exam Neurological Exam: Alert, Awake Neuro motor strength exam: Left Upper Extremity: 4, Right Upper Extremity: 4, Left Lower Extremity: 3, Right Lower Extremity: 4 - Psychiatric Exam Psychiatric exam: Normal Affect, Normal Mood - Skin Skin Exam: Dry, Intact Assessment and Plan (1) Other infective bursitis, left hip Assessment & Plan: plan to continue to monitor the infection, continue with physical, occupational therapy program Status: Acute (2) Acute blood loss anemia Status: Acute (3) Acute urinary retention Status: Acute (4) COPD (chronic obstructive pulmonary disease) Status: Acute (5) Closed left hip fracture Status: Acute (6) Diarrhea Status: Acute (7) Fever Status: Acute (8) Fracture, hip Status: Acute
[2017-08-30] MEDS: Pravastatin Sodium 40 MG TAB PO SCH (21:28)
[2017-08-31] MEDS: Meropenem 1 GM in Sodium Chloride 0.9% 100 ML IVPB SCH ×3 (00:21→16:13)
[2017-08-31] MEDS: Lactobacillus Acidophilus 500 MU Cap PO SCH ×2 (08:37→16:16)
[2017-08-31] MEDS: Enoxaparin 40 mg Syringe SC SCH (08:38)
[2017-08-31] MEDS: Emtricitabine-Tenofovir 200 mg-300 mg Tab PO SCH (08:40)
--- NOTE | 2017-08-31 18:39 | CP.PCM.PN ---
Subjective - Date & Time of Evaluation Date of Evaluation: 08/31/17 Time of Evaluation: 18:35 - Subjective Subjective: I D NOTE PATIENT TO BE DISCHARGED TOMORROW WILL BE DISCHARGED ON DAPTOMYCIN 500 MG IVPB Q48 H WEEKLY CBC,CMP,CPK Objective - Vital Signs/Intake and Output Vital Signs (last 24 hours): Temp Pulse Resp BP Pulse Ox 98.8 F 80 18 95/63 L 99 08/31/17 15:26 08/31/17 16:15 08/31/17 15:26 08/31/17 16:15 08/31/17 15:26 - Medications Medications: Current Medications Acetaminophen (Tylenol 325mg Tab) 650 mg PO Q6 PRN PRN Reason: Fever >100.4 F Al Hydrox/Mg Hydrox/Simethicone (Maalox Plus 30 Ml) 30 ml PO Q6 PRN PRN Reason: Indigestion / Heartburn Aspirin (Aspirin Chewable) 81 mg PO DAILY [facility] Last Admin: 08/31/17 08:40 Dose: 81 mg Carvedilol (Coreg) 6.25 mg PO BID [facility] Last Admin: 08/31/17 16:15 Dose: 6.25 mg Docusate Sodium (Colace) 100 mg PO BID [facility] Last Admin: 08/31/17 16:14 Dose: Not Given Dolutegravir Sodium (Tivicay) 50 mg PO QPM [facility] Last Admin: 08/31/17 17:33 Dose: 50 mg Emtricitabine/Tenofovir (Truvada 200 Mg-300 Mg) 1 tab PO DAILY [facility] Last Admin: 08/31/17 08:40 Dose: 1 tab Enoxaparin Sodium (Lovenox) 40 mg SC DAILY [facility] PRN Reason: Protocol Last Admin: 08/31/17 08:38 Dose: 40 mg Furosemide (Lasix) 20 mg PO DAILY [facility] Last Admin: 08/31/17 08:41 Dose: 20 mg Meropenem 1 gm/ Sodium (Chloride) 100 mls @ 100 mls/hr IVPB Q8 [facility] PRN Reason: Protocol Last Admin: 08/31/17 16:13 Dose: 100 mls/hr Daptomycin 500 mg/ Sodium (Chloride) 100 mls @ 100 mls/hr IV Q48H [facility] Stop: 09/01/17 20:01 Last Admin: 08/29/17 20:49 Dose: 100 mls/hr Lactobacillus Acidophilus (Bacid Acidophilus) 1 cap PO BID [facility] Last Admin: 08/31/17 16:16 Dose: 1 cap Pravastatin Sodium (Pravachol) 80 mg PO HS [facility] Last Admin: 08/30/17 21:28 Dose: 80 mg Spironolactone (Aldactone) 25 mg PO DAILY [facility] Last Admin: 08/31/17 08:39 Dose: Not Given Tamsulosin HCl (Flomax) 0.4 mg PO DAILY [facility] Last Admin: 08/31/17 08:39 Dose: 0.4 mg - Labs Labs: 08/27/17 07:05 08/29/17 11:00 PT 13.8 Seconds (9.8-13.1) H 08/21/17 06:26 INR 1.2 (0.9-1.2) 08/21/17 06:26 APTT 29.3 Seconds (25.6-37.1) 08/21/17 06:26
[2017-08-31] MEDS: DAPTOmycin 500 MG in Sodium Chloride 0.9% 100 ML IV SCH (21:01)
[2017-08-31] MEDS: Pravastatin Sodium 40 MG TAB PO SCH (21:31)
[2017-09-01] MEDS: Enoxaparin 40 mg Syringe SC SCH (08:55)
--- NOTE | 2017-09-01 08:55 | CP.PCM.PN ---
Subjective - Date & Time of Evaluation Date of Evaluation: 09/01/17 Time of Evaluation: 07:30 - Subjective Subjective: Patient seen and examined at bedside comfortable. He has no complaints of pain , is ambulating and working with walker without difficulties. No new complaints. Objective - Vital Signs/Intake and Output Vital Signs (last 24 hours): Temp Pulse Resp BP Pulse Ox 98.8 F 80 18 95/63 L 99 08/31/17 15:26 08/31/17 16:15 08/31/17 15:26 08/31/17 16:15 08/31/17 15:26 - Medications Medications: Current Medications Acetaminophen (Tylenol 325mg Tab) 650 mg PO Q6 PRN PRN Reason: Fever >100.4 F Al Hydrox/Mg Hydrox/Simethicone (Maalox Plus 30 Ml) 30 ml PO Q6 PRN PRN Reason: Indigestion / Heartburn Aspirin (Aspirin Chewable) 81 mg PO DAILY [facility] Last Admin: 08/31/17 08:40 Dose: 81 mg Carvedilol (Coreg) 6.25 mg PO BID [facility] Last Admin: 08/31/17 16:15 Dose: 6.25 mg Docusate Sodium (Colace) 100 mg PO BID [facility] Last Admin: 08/31/17 16:14 Dose: Not Given Dolutegravir Sodium (Tivicay) 50 mg PO QPM [facility] Last Admin: 08/31/17 17:33 Dose: 50 mg Emtricitabine/Tenofovir (Truvada 200 Mg-300 Mg) 1 tab PO DAILY [facility] Last Admin: 08/31/17 08:40 Dose: 1 tab Enoxaparin Sodium (Lovenox) 40 mg SC DAILY [facility] PRN Reason: Protocol Last Admin: 08/31/17 08:38 Dose: 40 mg Furosemide (Lasix) 20 mg PO DAILY [facility] Last Admin: 08/31/17 08:41 Dose: 20 mg Daptomycin 500 mg/ Sodium (Chloride) 100 mls @ 100 mls/hr IV Q48H [facility] Stop: 09/01/17 20:01 Last Admin: 08/31/17 21:01 Dose: 100 mls/hr Lactobacillus Acidophilus (Bacid Acidophilus) 1 cap PO BID [facility] Last Admin: 08/31/17 16:16 Dose: 1 cap Pravastatin Sodium (Pravachol) 80 mg PO HS [facility] Last Admin: 08/31/17 21:31 Dose: 80 mg Spironolactone (Aldactone) 25 mg PO DAILY [facility] Last Admin: 08/31/17 08:39 Dose: Not Given Tamsulosin HCl (Flomax) 0.4 mg PO DAILY [facility] Last Admin: 08/31/17 08:39 Dose: 0.4 mg - Labs Labs: 08/27/17 07:05 08/29/17 11:00 PT 13.8 Seconds (9.8-13.1) H 08/21/17 06:26 INR 1.2 (0.9-1.2) 08/21/17 06:26 APTT 29.3 Seconds (25.6-37.1) 08/21/17 06:26 - Extremities Exam Additional comments: Left hip: Opsite dressings intact. Dressings taken down revealing wound clean, dry and intact with venessa. No tenderness. Sensation intact SP/DP/TN. Motor intact EHL/FHL/gastroc/TA. Pedal pulses intact. Calves soft and NT b/l Assessment and Plan (1) Other infective bursitis, left hip Assessment & Plan: Patient is POD#15 s/p L hip I&D and excision of trochanteric bursitis -Venessa removed, wound to air -Ok to d/c home from ortho s/p, f/u in office within 2 weeks -PT/OT -ABX as per ID -Patient's case and plan was d/w Dr. Gutierrez in agreement Status: Acute
[2017-09-01] MEDS: Emtricitabine-Tenofovir 200 mg-300 mg Tab PO SCH (08:56)
[2017-09-01] MEDS: Lactobacillus Acidophilus 500 MU Cap PO SCH (08:58)
[2017-09-01 09:48] VITALS: RESP 20
--- NOTE | 2017-09-01 10:52 | CP.PCM.PN ---
Subjective - Date & Time of Evaluation Date of Evaluation: 09/01/17 Time of Evaluation: 10:30 - Subjective Subjective: no hip pain plan for Dc today Objective - Vital Signs/Intake and Output Vital Signs (last 24 hours): Temp Pulse Resp BP Pulse Ox 99.3 F 88 20 106/70 95 09/01/17 09:00 09/01/17 09:00 09/01/17 09:00 09/01/17 09:00 09/01/17 09:00 - Medications Medications: Current Medications Acetaminophen (Tylenol 325mg Tab) 650 mg PO Q6 PRN PRN Reason: Fever >100.4 F Al Hydrox/Mg Hydrox/Simethicone (Maalox Plus 30 Ml) 30 ml PO Q6 PRN PRN Reason: Indigestion / Heartburn Aspirin (Aspirin Chewable) 81 mg PO DAILY [facility] Last Admin: 09/01/17 08:57 Dose: 81 mg Carvedilol (Coreg) 6.25 mg PO BID [facility] Last Admin: 09/01/17 08:56 Dose: 6.25 mg Docusate Sodium (Colace) 100 mg PO BID [facility] Last Admin: 09/01/17 08:56 Dose: Not Given Dolutegravir Sodium (Tivicay) 50 mg PO QPM [facility] Last Admin: 08/31/17 17:33 Dose: 50 mg Emtricitabine/Tenofovir (Truvada 200 Mg-300 Mg) 1 tab PO DAILY [facility] Last Admin: 09/01/17 08:56 Dose: 1 tab Enoxaparin Sodium (Lovenox) 40 mg SC DAILY [facility] PRN Reason: Protocol Last Admin: 09/01/17 08:55 Dose: 40 mg Furosemide (Lasix) 20 mg PO DAILY [facility] Last Admin: 09/01/17 08:56 Dose: 20 mg Daptomycin 500 mg/ Sodium (Chloride) 100 mls @ 100 mls/hr IV Q48H [facility] Stop: 09/01/17 20:01 Last Admin: 08/31/17 21:01 Dose: 100 mls/hr Lactobacillus Acidophilus (Bacid Acidophilus) 1 cap PO BID [facility] Last Admin: 09/01/17 08:58 Dose: 1 cap Pravastatin Sodium (Pravachol) 80 mg PO HS [facility] Last Admin: 08/31/17 21:31 Dose: 80 mg Spironolactone (Aldactone) 25 mg PO DAILY [facility] Last Admin: 09/01/17 08:57 Dose: 25 mg Tamsulosin HCl (Flomax) 0.4 mg PO DAILY [facility] Last Admin: 09/01/17 08:57 Dose: 0.4 mg - Labs Labs: 08/27/17 07:05 08/29/17 11:00 PT 13.8 Seconds (9.8-13.1) H 08/21/17 06:26 INR 1.2 (0.9-1.2) 08/21/17 06:26 APTT 29.3 Seconds (25.6-37.1) 08/21/17 06:26 - Constitutional Appears: Well - Head Exam Head Exam: ATRAUMATIC, NORMAL INSPECTION, NORMOCEPHALIC - Eye Exam Eye Exam: EOMI, Normal appearance, PERRL Pupil Exam: NORMAL ACCOMODATION, PERRL - ENT Exam ENT Exam: Mucous Membranes Moist, Normal Exam - Neck Exam Neck Exam: Full ROM, Normal Inspection. absent: Lymphadenopathy - Respiratory Exam Respiratory Exam: Clear to Ausculation Bilateral, NORMAL BREATHING PATTERN - Cardiovascular Exam Cardiovascular Exam: REGULAR RHYTHM, +S1, +S2. absent: Murmur - GI/Abdominal Exam GI & Abdominal Exam: Soft, Normal Bowel Sounds. absent: Tenderness - Exam External exam: NORMAL EXTERNAL EXAM - Extremities Exam Extremities Exam: Full ROM, Normal Capillary Refill, Normal Inspection. absent : Joint Swelling, Pedal Edema - Back Exam Back Exam: NORMAL INSPECTION - Neurological Exam Neurological Exam: Alert, Awake, CN II-XII Intact, Normal Gait, Oriented x3 Neuro motor strength exam: Left Upper Extremity: 4, Right Upper Extremity: 4, Left Lower Extremity: 3, Right Lower Extremity: 4 - Psychiatric Exam Psychiatric exam: Normal Affect, Normal Mood - Skin Skin Exam: Dry, Intact, Normal Color, Warm Assessment and Plan (1) Other infective bursitis, left hip Assessment & Plan: staut spot Pt, ot therapy for Dc today followu up with orth after Dc home services after Dc Status: Acute (2) Acute blood loss anemia Status: Acute (3) Acute urinary retention Status: Acute (4) COPD (chronic obstructive pulmonary disease) Status: Acute (5) Closed left hip fracture Status: Acute (6) Diarrhea Status: Acute (7) Fever Status: Acute (8) Fracture, hip Status: Acute
--- NOTE | 2017-09-01 12:29 | CP.PCM.DIS ---
Provider - Provider Date of Admission: 08/20/17 22:11 Attending physician: Ozzie Hawkins Primary care physician: Chavez Gutierrez III, MD Consults: Dr Matt Acharya Time Spent in preparation of Discharge (in minutes): 28 Diagnosis - Discharge Diagnosis (1) Other infective bursitis, left hip Status: Acute Comment: history of left partial hip replacement in 2014 and ORIF in 2017. s/ p partial removal of hardware with I&D of L hip with application of wound vac. Dr. Gutierrez on ortho consult. Dr. Acharya on ID consult. Wound culture grew Staph Coag negative. finished course of IV Meropenem. will continue Daptomycin IV q 48 hrs as outpatient. monitor CBC, CMP, CPK weekly (2) CAD (coronary artery disease) Status: Chronic Comment: continue Carvedilol, ASA and statin (3) Cardiomyopathy Status: Chronic Comment: continue Lisinopril, Furosemide and Spironolactone (4) HIV (human immunodeficiency virus infection) Status: Chronic Comment: continue Dolutegravir and [facility] - Lab Results Lab Results: Most Recent Lab Values WBC 5.4 K/uL (4.8-10.8) 08/27/17 07:05 RBC 2.94 Mil/uL (4.40-5.90) L 08/27/17 07:05 Hgb 11.0 g/dL (12.0-18.0) L 08/27/17 07:05 Hct 30.9 % (35.0-51.0) L 08/27/17 07:05 MCV 105.1 fl (80.0-94.0) H 08/27/17 07:05 MCH 37.2 pg (27.0-31.0) H 08/27/17 07:05 MCHC 35.4 g/dL (33.0-37.0) 08/27/17 07:05 RDW 12.7 % (11.5-14.5) 08/27/17 07:05 Plt Count 241 K/uL (130-400) 08/27/17 07:05 MPV 8.0 fl (7.2-11.7) 08/27/17 07:05 Neut % (Auto) 59.5 % (50.0-75.0) 08/27/17 07:05 Lymph % (Auto) 28.5 % (20.0-40.0) 08/27/17 07:05 Dickens % (Auto) 9.2 % (0.0-10.0) 08/27/17 07:05 Eos % (Auto) 2.0 % (0.0-4.0) 08/27/17 07:05 Baso % (Auto) 0.8 % (0.0-2.0) 08/27/17 07:05 Neut # (Auto) 3.2 K/uL (1.8-7.0) 08/27/17 07:05 Lymph # (Auto) 1.5 K/uL (1.0-4.3) 08/27/17 07:05 Dickens # (Auto) 0.5 K/uL (0.0-0.8) 08/27/17 07:05 Eos # (Auto) 0.1 K/uL (0.0-0.7) 08/27/17 07:05 Baso # (Auto) 0.0 K/uL (0.0-0.2) 08/27/17 07:05 PT 13.8 Seconds (9.8-13.1) H 08/21/17 06:26 INR 1.2 (0.9-1.2) 08/21/17 06:26 APTT 29.3 Seconds (25.6-37.1) 08/21/17 06:26 Sodium 132 mmol/l (132-148) 08/29/17 11:00 Potassium 4.4 MMOL/L (3.6-5.0) 08/29/17 11:00 Chloride 96 mmol/L (98-107) L 08/29/17 11:00 Carbon Dioxide 25 mmol/L (22-30) 08/29/17 11:00 Anion Gap 15 (10-20) 08/29/17 11:00 BUN 18 mg/dl (9-20) 08/29/17 11:00 Creatinine 1.1 mg/dl (0.8-1.5) 08/29/17 11:00 Est GFR ( Amer) > 60 08/29/17 11:00 Est GFR (Non-Af Amer) > 60 08/29/17 11:00 Random Glucose 92 mg/dL (75-110) 08/29/17 11:00 Calcium 8.8 mg/dL (8.4-10.2) 08/29/17 11:00 Total Bilirubin 0.5 mg/dl (0.2-1.3) 08/29/17 11:00 AST 27 U/L (17-59) 08/29/17 11:00 ALT 24 U/L (21-72) 08/29/17 11:00 Alkaline Phosphatase 63 U/L (38-126) 08/29/17 11:00 Total Creatine Kinase 31 U/L (55-170) L 08/27/17 07:05 Total Protein 7.8 G/DL (6.3-8.2) 08/29/17 11:00 Albumin 3.5 g/dL (3.5-5.0) 08/29/17 11:00 Globulin 4.2 gm/dL (2.2-3.9) H 08/29/17 11:00 Albumin/Globulin Ratio 0.8 (1.0-2.1) L 08/29/17 11:00 C. difficile Ag & Toxin Negative (NEGATIVE) 08/26/17 12:48 - Hospital Course Hospital Course: 72 yo male with history of CAD, Cardiomyopathy, HIV, COPD, pulmonary fibrosis, HTN, HLD and BPH was admitted because of septic trochanteric bursitis and had undergone partial removal of hardware with I&D of left hip and application of wound vac. Wound cultures from left hip grew Staph coagulase negative ID was consulted and he recommended 6 weeks of IV Meropenem and Daptomycin. He was transferred to TCU for continuation of IV antibiotics and therapy. Patient to be discharged on Daptomycin 500mg IV q48hrs. Discharge Exam - Head Exam Head Exam: ATRAUMATIC, NORMAL INSPECTION, NORMOCEPHALIC - Eye Exam Eye Exam: absent: Scleral icterus - ENT Exam ENT Exam: Mucous Membranes Moist - Respiratory Exam Respiratory Exam: absent: Rhonchi, Wheezes, Respiratory Distress - Cardiovascular Exam Cardiovascular Exam: REGULAR RHYTHM, +S1, +S2 - GI/Abdominal Exam GI & Abdominal Exam: Soft. absent: Tenderness - Rectal Exam Rectal Exam: Deferred - Neurological Exam Neurological exam: Alert, Oriented x3 - Psychiatric Exam Psychiatric exam: Normal Affect - Skin Skin Exam: Dry, Intact Discharge Plan - Follow Up Plan Condition: GOOD Disposition: HOME/ ROUTINE Additional Instructions: continue Daptomycin 500mg IV q 48hrs monitor CBC, CMP, CPK weekly Referrals: Chavez Gutierrez III, MD [Primary Care Provider] -
[2017-09-01 17:45] VITALS: BP 101/61; PULSE 84; TEMP 97.9; O2SAT 96
== END 2017-09-01 13:00 | disposition home or self-care (01) | DRG 559 ==
LOC: H.TCU 22:11
PROVIDERS: ADMIT Internal Medicine; ATTEND Internal Medicine
PROC: F07Z9FZ Gait Training/Functional Ambulation Treatment using Assistive, Adaptive, Supportive or Protective Equipment (ICD-10-PCS; principal; 2017-08-20)
PROC: F08Z4FZ Home Management Treatment using Assistive, Adaptive, Supportive or Protective Equipment (ICD-10-PCS; 2017-08-20)
PROC: F07L6FZ Therapeutic Exercise Treatment of Musculoskeletal System - Lower Back / Lower Extremity using Assistive, Adaptive, Supportive or Protective Equipment (ICD-10-PCS; 2017-08-21)
DX: Z47.89 Encounter for other orthopedic aftercare (principal); S72.092D Other fracture of head and neck of left femur, subsequent encounter for closed fracture with routine healing; M71.152 Other infective bursitis, left hip; B20 Human immunodeficiency virus [HIV] disease; I42.8 Other cardiomyopathies; E87.1 Hypo-osmolality and hyponatremia; J84.10 Pulmonary fibrosis, unspecified; D50.0 Iron deficiency anemia secondary to blood loss (chronic); I10 Essential (primary) hypertension; E78.5 Hyperlipidemia, unspecified; I25.10 Atherosclerotic heart disease of native coronary artery without angina pectoris; J44.9 Chronic obstructive pulmonary disease, unspecified; N40.1 Benign prostatic hyperplasia with lower urinary tract symptoms; R33.8 Other retention of urine; Z96.642 Presence of left artificial hip joint; Z86.73 Personal history of transient ischemic attack (TIA), and cerebral infarction without residual deficits; Z88.6 Allergy status to analgesic agent; Z87.891 Personal history of nicotine dependence; X58.XXXD Exposure to other specified factors, subsequent encounter

== ENCOUNTER 2018-01-04 06:05 | Inpatient (IN) | payer MEDICARE ==
[2017-09-02 11:47] VITALS: BMI 25.9
--- NOTE | 2018-01-04 07:12 | CP.PCM.HP ---
Past Patient History - Past Medical History & Family History Past Medical History?: Yes - Past Social History Smoking Status: Former Smoker - CARDIAC Hx Cardiac Disorders: Yes Hx Heart Attack: Yes Hx Hypercholesterolemia: Yes Hx Hypertension: Yes Other/Comment: Claimed had 2 heart attacks before - PULMONARY Hx Respiratory Disorders: Yes Hx Chronic Obstructive Pulmonary Disease (COPD): Yes Hx Pneumonia: Yes Other/Comment: scarred lung tissue left lobe, lung resection - NEUROLOGICAL Hx Neurological Disorder: No Hx Transient Ischemic Attacks (TIA): Yes - HEENT Hx HEENT Problems: No Hx Cataracts: Yes (L eye Catatract surgery) - RENAL Hx Chronic Kidney Disease: No - ENDOCRINE/METABOLIC Hx Endocrine Disorders: No - HEMATOLOGICAL/ONCOLOGICAL Hx Blood Disorders: Yes Hx AIDS: Yes Hx Blood Transfusions: Yes Hx Blood Transfusion Reaction: No Hx Human Immunodeficiency Virus (HIV): Yes - INTEGUMENTARY Hx Dermatological Problems: No - MUSCULOSKELETAL/RHEUMATOLOGICAL Hx Musculoskeletal Disorders: Yes Hx Arthritis: Yes Hx Falls: Yes - GASTROINTESTINAL Hx Gastrointestinal Disorders: Yes Hx Bowel Surgery: Yes Hx Diverticulitis: Yes Hx Hemorrhoids: Yes - GENITOURINARY/GYNECOLOGICAL Hx Genitourinary Disorders: No Hx Prostate Problems: Yes (On Flomax) - PSYCHIATRIC Hx Psychophysiologic Disorder: No Hx Emotional Abuse: No Hx Physical Abuse: No Hx Substance Use: No - SURGICAL HISTORY Hx Surgeries: Yes Hx Appendectomy: Yes (AGE 3) Hx Cardiac Catheterization: Yes Hx Orthopedic Surgery: Yes (L Hip replacement 2013) Other/Comment: bowel resection, pneumonectomy left lobe. I&D LEFT HIP. PICC LINE INSERTION - ANESTHESIA Hx Anesthesia: Yes Hx Anesthesia Reactions: No Hx Malignant Hyperthermia: No Meds Allergies/Adverse Reactions: Allergies Allergy/AdvReac Type Severity Reaction Status Date / Time morphine Allergy ITCHING Verified 09/04/17 12:41 morp Allergy Intermediate ITCHING Uncoded 09/04/17 12:41 Results - Vital Signs Recent Vital Signs: Last Vital Signs Temp 97.9 F 01/04/18 06:37 Pulse 65 01/04/18 06:40 Resp 20 01/04/18 06:37 BP 139/83 01/04/18 06:37 Pulse Ox 98 01/04/18 06:37 Assessment & Plan - Date & Time Date: 01/04/18 Time: 07:12
[2018-01-04 07:16] LABS: HEMOGLOBIN 14.3 g/dL (12.0-18.0); MEAN CELL VOLUME 107.3 fl (80.0-94.0); MEAN CORPUSCULAR HEMOGLOBIN 37.4 pg (27.0-31.0); MEAN CORPUSCULAR HGB CONC 34.9 g/dL (33.0-37.0); RBC 3.83 Mil/uL (4.40-5.90); RED CELL DISTRIBUTION WIDTH 13.4 % (11.5-14.5); WHITE BLOOD COUNT 5.2 K/uL (4.8-10.8)
[2018-01-04] MEDS ORDERED: GELATIN SPONGE,ABSORB/PORCINE 1 EACH SPONGE TP ONE (07:17)
[2018-01-04] MEDS ORDERED: ceFAZolin IV 2 gm in Dextrose 2 GM/50 ML BAG IVPB ONE (07:17)
[2018-01-04] MEDS ORDERED: Thrombin Topical 5,000 Int Units Spray Kit ONE (07:17)
--- NOTE | 2018-01-04 07:19 | CP.PCM.HP ---
<SebastianSundayElaine espinosa - Last Filed: 01/04/18 16:29> History of Present Illness - History of Present Illness History of Present Illness: HPI: 72 year old male admitted for elective total right hip replacement for osteoarthritis-induced worsening hip pain which failed outpatient conservative medical management. Cleared for surgery by PCP at [facility]. He denies any chest pain or pressure with activity or at rest. Patient examined at bedside , alert and in no acute distress. He denies fever, change of vision, headaches, nausea, vomiting, diarrhea, urinary changes, and shortness of breath. Patient is hemodynamically stable, METS > 4 and CRI 0.9%. Patient is medically cleared for surgery, at low risk for a moderate risk procedure. ROS: ROS reviewed and negative PMSH: non-obstructive CAD, non-ischemic cardiomyopathy, HIV, moderate COPD, pulmonary fibrosis, HTN, HLD, BPH, L Partial Hip 2013, L hip ORIF 2016 secondary to multiple fx after fall, colon resection, appendectomy, partial left upper lobe lung resection. FH: ovarian and lung CA SH: denies tobacco/etoh/ivdu currently. Former 2 ppd smoker for several decades , quit 9 years ago Allergies: morphine Present on Admission - Present on Admission Any Indicators Present on Admission: Yes History of DVT/PE: No History of Uncontrolled Diabetes: No Urinary Catheter: No Decubitus Ulcer Present: No History Surgical Site Infection Following: Orthopedic Procedures Review of Systems - Review of Systems All systems: reviewed and no additional remarkable complaints except Past Patient History - Past Medical History & Family History Past Medical History?: Yes - Past Social History Smoking Status: Former Smoker - CARDIAC Hx Cardiac Disorders: Yes Hx Heart Attack: Yes Hx Hypercholesterolemia: Yes Hx Hypertension: Yes Other/Comment: Claimed had 2 heart attacks before - PULMONARY Hx Respiratory Disorders: Yes Hx Chronic Obstructive Pulmonary Disease (COPD): Yes Hx Pneumonia: Yes Other/Comment: scarred lung tissue left lobe, lung resection - NEUROLOGICAL Hx Neurological Disorder: No Hx Transient Ischemic Attacks (TIA): Yes - HEENT Hx HEENT Problems: No Hx Cataracts: Yes (L eye Catatract surgery) - RENAL Hx Chronic Kidney Disease: No - ENDOCRINE/METABOLIC Hx Endocrine Disorders: No - HEMATOLOGICAL/ONCOLOGICAL Hx Blood Disorders: Yes Hx AIDS: Yes Hx Blood Transfusions: Yes Hx Blood Transfusion Reaction: No Hx Human Immunodeficiency Virus (HIV): Yes - INTEGUMENTARY Hx Dermatological Problems: No - MUSCULOSKELETAL/RHEUMATOLOGICAL Hx Musculoskeletal Disorders: Yes Hx Arthritis: Yes Hx Falls: Yes - GASTROINTESTINAL Hx Gastrointestinal Disorders: Yes Hx Bowel Surgery: Yes Hx Diverticulitis: Yes Hx Hemorrhoids: Yes - GENITOURINARY/GYNECOLOGICAL Hx Genitourinary Disorders: No Hx Prostate Problems: Yes (On Flomax) - PSYCHIATRIC Hx Psychophysiologic Disorder: No Hx Emotional Abuse: No Hx Physical Abuse: No Hx Substance Use: No - SURGICAL HISTORY Hx Surgeries: Yes Hx Appendectomy: Yes (AGE 3) Hx Cardiac Catheterization: Yes Hx Orthopedic Surgery: Yes (L Hip replacement 2013) Other/Comment: bowel resection, pneumonectomy left lobe. I&D LEFT HIP. PICC LINE INSERTION - ANESTHESIA Hx Anesthesia: Yes Hx Anesthesia Reactions: No Hx Malignant Hyperthermia: No Meds Allergies/Adverse Reactions: Allergies Allergy/AdvReac Type Severity Reaction Status Date / Time morphine Allergy ITCHING Verified 09/04/17 12:41 morp Allergy Intermediate ITCHING Uncoded 09/04/17 12:41 Results - Vital Signs Recent Vital Signs: Last Vital Signs Temp 97.9 F 01/04/18 06:37 Pulse 65 01/04/18 06:40 Resp 20 01/04/18 06:37 BP 139/83 01/04/18 06:37 Pulse Ox 98 01/04/18 06:37 - Labs Result Diagrams: 01/04/18 06:54 Assessment & Plan - Assessment and Plan (Free Text) Assessment: 72 year old male admitted for elective total right hip replacement for osteoarthritis-induced worsening hip pain which failed outpatient conservative medical management. Cleared for surgery by PCP at [facility]. He denies any chest pain or pressure with activity or at rest. Patient examined at bedside , alert and in no acute distress. He denies fever, change of vision, headaches, nausea, vomiting, diarrhea, urinary changes, and shortness of breath. Patient is hemodynamically stable, METS > 4 and CRI 0.9%. Patient is medically cleared for surgery, at low risk for a moderate risk procedure. PMH: non-obstructive CAD, non-ischemic cardiomyopathy, HIV, moderate COPD, pulmonary fibrosis, HTN, HLD, BPH 1. s/p R total hip replacement due to osteoarthritis Ortho: Dr. Gutierrez Infection prophylaxis Ancef x3 Pain Control PT/OT 2. non-obstructive CAD, non-ischemic cardiomyopathy, HTN, HLD cont home meds: Pravastatin Sodium 80 mg PO HS Lisinopril 40 mg PO daily Carvedilol 6.25 mg PO BID Aspirin 81 mg PO daily Furosemide 20 mg PO daily Spironolactone 25 mg PO daily 3. HIV continue home meds: Dolutegravir Sodium 50 mg PO QPM Emtricitabine/Tenofov Alafenam 200-300 mg PO daily 4. moderate COPD stable DuoNeb Q4 as needed Aggressive incentive spirometer 5. pulmonary fibrosis stable Aggressive incentive spirometer 6. BPH continue home meds: Tamsulosin HCl 0.4 mg PO daily 7. VTE ppx per orthopedic surgery - Date & Time Date: 01/04/18 Time: 07:20 <Carolyn Brewster - Last Filed: 01/05/18 11:21> Results - Vital Signs Recent Vital Signs: Last Vital Signs Temp 98 F 01/05/18 08:24 Pulse 96 H 01/05/18 10:14 Resp 20 01/05/18 08:24 BP 130/74 01/05/18 09:44 Pulse Ox 95 01/05/18 10:14 - Labs Result Diagrams: 01/05/18 05:30 01/05/18 05:30 Labs: Laboratory Results - last 24 hr 01/05/18 01/05/18 05:30 05:30 WBC 6.0 RBC 2.96 L Hgb 11.2 L D Hct 32.1 L MCV 108.7 H MCH 37.8 H MCHC 34.8 RDW 13.1 Plt Count 107 L D Sodium 134 Potassium 4.7 Chloride 101 Carbon Dioxide 25 Anion Gap 13 BUN 13 Creatinine 1.0 Est GFR ( Amer) > 60 Est GFR (Non-Af Amer) > 60 Random Glucose 108 Calcium 7.8 L Attending/Attestation - Attestation I have personally seen and examined this patient.: Yes I have fully participated in the care of the patient.: Yes I have reviewed all pertinent clinical information: Yes Notes (Text): 01/05/18 11:21 Pt seen, examined, discussed with Resident Dr. Amaya. Agree with findings and plan as above.
[2018-01-04] MEDS ORDERED: Propofol 10 mg/ml Inj (20 ML) ONE (07:30)
[2018-01-04] MEDS ORDERED: Rocuronium 10 mg/ml (5 ml) ONE ×2 (07:30→09:17)
--- NOTE | 2018-01-04 07:31 | CP.PCM.CON ---
History of Present Illness - History of Present Illness History of Present Illness: Orthopedic consult: Patient is a 72 y/o male with PMH of HIV, HTN and hypercholesterolemia presents for elective right total hip arthroplasty. He has been complaining of right hip pain for many years which has progressively worsened over the past few months. He has had difficulty with his usual daily activities such as walking and stair-climbing. The pain has been resistant to conservative means, oral medications and exercises. THe pain is dull, aching and intermittent but daily. The pain worsens with WB activities and is alleviated with rest. He denies radiation of pain, numbness and tingling. He also denies CP/SOB/N/V/D/ fever/dysuria/melena. He has history a left total hip performed in 2013 and underwent a left hip ORIF for a perprosthetic hip fracture in 2017. On 08/17/17 he underwent, excision of infected left trochanteric bursa and left hip I&D. Review of Systems - Review of Systems All systems: reviewed and no additional remarkable complaints except Review of Systems: as per HPI Past Patient History - Past Medical History & Family History Past Medical History?: Yes Past Family History: Reviewed and not pertinent - Past Social History Smoking Status: Former Smoker Alcohol: None Drugs: Denies - CARDIAC Hx Cardiac Disorders: Yes Hx Heart Attack: Yes Hx Hypercholesterolemia: Yes Hx Hypertension: Yes Other/Comment: Claimed had 2 heart attacks before - PULMONARY Hx Respiratory Disorders: Yes Hx Chronic Obstructive Pulmonary Disease (COPD): Yes Hx Pneumonia: Yes Other/Comment: scarred lung tissue left lobe, lung resection - NEUROLOGICAL Hx Neurological Disorder: No Hx Transient Ischemic Attacks (TIA): Yes - HEENT Hx HEENT Problems: No Hx Cataracts: Yes (L eye Catatract surgery) - RENAL Hx Chronic Kidney Disease: No - ENDOCRINE/METABOLIC Hx Endocrine Disorders: No - HEMATOLOGICAL/ONCOLOGICAL Hx Blood Disorders: Yes Hx AIDS: Yes Hx Blood Transfusions: Yes Hx Blood Transfusion Reaction: No Hx Human Immunodeficiency Virus (HIV): Yes - INTEGUMENTARY Hx Dermatological Problems: No - MUSCULOSKELETAL/RHEUMATOLOGICAL Hx Musculoskeletal Disorders: Yes Hx Arthritis: Yes Hx Falls: Yes - GASTROINTESTINAL Hx Gastrointestinal Disorders: Yes Hx Bowel Surgery: Yes Hx Diverticulitis: Yes Hx Hemorrhoids: Yes - GENITOURINARY/GYNECOLOGICAL Hx Genitourinary Disorders: No Hx Prostate Problems: Yes (On Flomax) - PSYCHIATRIC Hx Psychophysiologic Disorder: No Hx Emotional Abuse: No Hx Physical Abuse: No Hx Substance Use: No - SURGICAL HISTORY Hx Surgeries: Yes Hx Appendectomy: Yes (AGE 3) Hx Cardiac Catheterization: Yes Hx Orthopedic Surgery: Yes (L Hip replacement 2013, L hip ORIF 2016) Other/Comment: bowel resection, pneumonectomy left lobe. I&D LEFT HIP. PICC LINE INSERTION - ANESTHESIA Hx Anesthesia: Yes Hx Anesthesia Reactions: No Hx Malignant Hyperthermia: No Meds Allergies/Adverse Reactions: Allergies Allergy/AdvReac Type Severity Reaction Status Date / Time morphine Allergy ITCHING Verified 09/04/17 12:41 morp Allergy Intermediate ITCHING Uncoded 09/04/17 12:41 Physical Exam - Constitutional Appears: Well, No Acute Distress - Head Exam Head Exam: ATRAUMATIC, NORMOCEPHALIC - Eye Exam Eye Exam: EOMI, Normal appearance, PERRL - ENT Exam ENT Exam: Mucous Membranes Moist, Normal Exam - Respiratory Exam Respiratory Exam: Clear to Auscultation Bilateral, NORMAL BREATHING PATTERN - Cardiovascular Exam Cardiovascular Exam: REGULAR RHYTHM - GI/Abdominal Exam GI & Abdominal Exam: Normal Bowel Sounds, Soft - Extremities Exam Additional comments: Right hip: +groin/lateral hip tenderness painful ROM sensation intact SP/DP/TN motor intact EHL/FHL/TA/G pedal pulses intact comps soft/NT - Neurological Exam Neurological exam: Alert, Oriented x3 - Psychiatric Exam Psychiatric exam: Normal Affect, Normal Mood - Skin Skin Exam: Normal Color, Warm Results - Vital Signs Recent Vital Signs: Last Vital Signs Temp 97.9 F 01/04/18 06:37 Pulse 65 01/04/18 06:40 Resp 20 01/04/18 06:37 BP 139/83 01/04/18 06:37 Pulse Ox 98 01/04/18 06:37 - Labs Result Diagrams: 01/04/18 06:54 Labs: Laboratory Results - last 24 hr 01/04/18 06:54 WBC 5.2 RBC 3.83 L Hgb 14.3 D Hct 41.1 MCV 107.3 H MCH 37.4 H MCHC 34.9 RDW 13.4 Plt Count 151 Assessment & Plan (1) Osteoarthritis of right hip Assessment and Plan: -OR today for right total hip replacement -Pros/Cons/Risks/benefits of procedure were explained to the patient in detail. Patient expresses understanding and agrees to proceed. -admit to Hospitalist -NPO -above d/w Dr. Gutierrez in agreement Status: Acute
[2018-01-04] MEDS ORDERED: Morphine 1 mg/ml preservative-free Inj(Duramorph) ONE (07:38)
[2018-01-04] MEDS ORDERED: Phenylephrine 10 mg/ml Inj ONE (07:38)
[2018-01-04] MEDS ORDERED: ePHEDrine 50 mg/ml Inj ONE (07:38)
--- NOTE | 2018-01-04 08:23 | RAD ---
HISTORY: pre-op COMPARISON: No prior. TECHNIQUE: Chest PA and lateral FINDINGS: LUNGS: Postoperative changes left tim thorax. Left upper lobe scarring. PLEURA: Biapical pleural thickening common no pleural effusion identified. CARDIOVASCULAR: Normal. OSSEOUS STRUCTURES: No significant abnormalities. VISUALIZED UPPER ABDOMEN: Normal. OTHER FINDINGS: None. IMPRESSION: No active pulmonary disease. Additional benign and/or incidental findings described above.
--- NOTE | 2018-01-04 08:24 | CARD ---
APPROVED REPORT EKG Measurement Heart [id number] ND [id number] <Conclusion> Sinus rhythm with 1st degree AV block Otherwise no other changes noticed
[2018-01-04] MEDS ORDERED: Lactated Ringer's 1,000 ML IV ONE ×3 (09:06)
[2018-01-04] MEDS ORDERED: Absorbable Gelatin Sponge Size 100 TP ONE (09:45)
[2018-01-04] MEDS ORDERED: Thrombin Topical 5,000 Int Units Spray Kit TOP ONE ×2 (09:45)
[2018-01-04] MEDS ORDERED: Albuterol HFA 90 mcg/actuation (8 g) ONE (09:59)
[2018-01-04] MEDS ORDERED: Neostigmine 1:1000 (1 mg/ml) Inj ONE (11:05)
[2018-01-04] MEDS: HYDROmorphone 0.5 mg/0.5 ml ISec IVP PRN ×4 (11:53→13:00)
[2018-01-04] MEDS ORDERED: HYDROmorphone 0.5 mg/0.5 ml ISec ONE (11:53)
--- NOTE | 2018-01-04 12:38 | PCM.SURG1 ---
Surgeon's Initial Post Op Note - Surgeon's Notes Surgeon: Matt Loan Servicing Officer: GLORIA Garcia/ 2nd assist Ruben Monique PA-C Type of Anesthesia: General Endo Anesthesia Administered By: DR Flores Pre-Operative Diagnosis: Post traumatic O/A R hip Operative Findings: Post traumatic O/A R hip. synovitis R hip- post traumatic Post-Operative Diagnosis: as above Operation Performed: R THR- anterior approach. femoral neck osteotomy. release iliopsoas tendon. autograft bone graft to acetabulum. computer navigation (Motosmarty) Specimen/Specimens Removed: bone/synvovium/cartilage Estimated Blood Loss: EBL {In ML}: 245 Blood Products Given: N/A Drains Used: Wound Vac Post-Op Condition: Good Date of Surgery/Procedure: 01/04/18 Time of Surgery/Procedure: 09:15 (time in room/Anaesthesia indcution time)
[2018-01-04] MEDS: Lactated Ringer's 1,000 ML IV SCH (12:50)
--- NOTE | 2018-01-04 13:24 | RAD ---
PROCEDURE: Right Hip Radiographs. HISTORY: s/p R PANFILO COMPARISON: None. FINDINGS: BONES: Status post right PANFILO. JOINTS: Normal. SOFT TISSUES: Normal. OTHER FINDINGS: None. IMPRESSION: Satisfactory postoperative status.
--- NOTE | 2018-01-04 14:00 | RAD ---
PROCEDURE: Intraoperative Fluoroscopy. HISTORY: HIP FINDINGS: Fluoroscopic assistance was provided for right hip replacement. Total fluoroscopic time (continuous mode) utilized during the procedure (seconds) 11.4 seconds. Please refer to the operative report from WILIAM Barron. Total exam DLP: (mGy) 1.68
[2018-01-04] MEDS ORDERED: Albuterol-Ipratrop 3 mg / 0.5 (3 ml) UD INH PRN (15:49)
[2018-01-04] MEDS: DOLUTEGRAVIR SODIUM 50 MG PO SCH (17:22)
[2018-01-04] MEDS: Tranexamic Acid 1,000 MG in Sodium Chloride 0.9% 100 ML IVPB SCH (17:23)
[2018-01-04] MEDS: ceFAZolin IV 2 gm in Dextrose 2 GM/50 ML BAG IVPB SCH (17:35)
[2018-01-04] MEDS: TENOFOV ALAFENAM PO SCH (18:07)
[2018-01-04] MEDS: EMTRICITABINE PO SCH (18:07)
[2018-01-04] MEDS: Docusate-Senna 50 mg-8.6 mg Tab PO SCH (21:39)
[2018-01-04] MEDS: Pravastatin Sodium 40 MG TAB PO SCH (21:39)
[2018-01-05] MEDS: Lactated Ringer's 1,000 ML IV SCH (00:02)
[2018-01-05] MEDS: ceFAZolin IV 2 gm in Dextrose 2 GM/50 ML BAG IVPB SCH ×2 (01:23→10:59)
[2018-01-05 06:45] LABS: BLOOD UREA NITROGEN 13 mg/dl (9-20); CALCIUM 7.8 mg/dL (8.4-10.2); GFR AFRICAN-AMERICAN > 60; GFR NON-AFRICAN AMERICAN > 60
[2018-01-05 07:26] LABS: HEMOGLOBIN 11.2 g/dL (12.0-18.0); MEAN CELL VOLUME 108.7 fl (80.0-94.0); MEAN CORPUSCULAR HEMOGLOBIN 37.8 pg (27.0-31.0); MEAN CORPUSCULAR HGB CONC 34.8 g/dL (33.0-37.0); RBC 2.96 Mil/uL (4.40-5.90); RED CELL DISTRIBUTION WIDTH 13.1 % (11.5-14.5)
--- NOTE | 2018-01-05 08:13 | CP.PCM.PN ---
Subjective - Date & Time of Evaluation Date of Evaluation: 01/05/18 Time of Evaluation: 08:11 - Subjective Subjective: Patient states pain in right hip well controlled. He says the haris bandage is uncomfortable. Denies CP/SOB/dizziness/numbness/tinglng Objective - Vital Signs/Intake and Output Vital Signs (last 24 hours): Temp Pulse Resp BP Pulse Ox 98.7 F 79 15 131/80 98 01/05/18 05:00 01/05/18 05:00 01/05/18 05:00 01/05/18 05:00 01/05/18 05:00 Intake and Output: 01/05/18 01/05/18 06:59 18:59 Intake Total 2200 Output Total 550 Balance 1650 - Medications Medications: Current Medications Acetaminophen (Tylenol 325mg Tab) 975 mg PO Q8 [facility] Last Admin: 01/05/18 01:24 Dose: 975 mg Albuterol/Ipratropium (Duoneb 3 Mg/0.5 Mg (3 Ml) Ud) 3 ml INH RQ4 PRN PRN Reason: Shortness of Breath Last Admin: 01/04/18 17:53 Dose: 3 ml Carvedilol (Coreg) 6.25 mg PO BID [facility] Last Admin: 01/04/18 17:24 Dose: 6.25 mg Enoxaparin Sodium (Lovenox) 40 mg SC DAILY [facility] PRN Reason: Protocol Ferrous Sulfate (Feosol) 325 mg PO BID [facility] Last Admin: 01/04/18 17:23 Dose: 325 mg Folic Acid (Folic Acid) 1 mg PO DAILY [facility] Furosemide (Lasix) 20 mg PO DAILY [facility] Home Med (Patient's Own Medication) 50 unit PO QPM [facility]IA PRN Reason: Protocol Last Admin: 01/04/18 17:22 Dose: 50 unit Home Med (Emtricitabine/Tenofov Alafenam [Descovy 200-25 Mg Tablet]) 200 mg PO QPM [facility] Last Admin: 01/04/18 18:07 Dose: 200 mg Hydromorphone HCl (Dilaudid 0.2 Mg/Ml Data Capture Specialist) 0 mg IV PRN PRN; Protocol PRN Reason: Pain, moderate (4-7) Last Admin: 01/04/18 13:20 Dose: 6 mg Cefazolin Sodium/Dextrose (Ancef Iv 2 Gm Duplex) 2 gm in 50 mls @ 50 mls/hr IVPB Q8 [facility] PRN Reason: Protocol Last Admin: 01/05/18 01:23 Dose: 50 mls/hr Lactated Ringer's (Lactated Ringer's) 1,000 mls @ 100 mls/hr IV .Q10H [facility] Last Admin: 01/05/18 00:02 Dose: 100 mls/hr Lisinopril (Zestril) 40 mg PO DAILY [facility] Pantoprazole Sodium (Protonix Ec Tab) 20 mg PO DAILY SAMIA Pravastatin Sodium (Pravachol) 80 mg PO HS [facility] Last Admin: 01/04/18 21:39 Dose: 80 mg Senna/Docusate Sodium (Senokot S 50 Mg-8.6 Mg) 1 tab PO HS [facility] Last Admin: 01/04/18 21:39 Dose: 1 tab Spironolactone (Aldactone) 25 mg PO DAILY [facility] Tamsulosin HCl (Flomax) 0.4 mg PO DAILY [facility] Vitamin E (Vitamin E) 200 intlu PO DAILY [facility] - Labs Labs: 01/05/18 05:30 01/05/18 05:30 - Extremities Exam Additional comments: +ROM ankle/toes, sensation intact, +DP/PT pulses calves soft NT neg homans BRITTNI dressing intact, mild thigh swelling, no drainage noted Assessment and Plan (1) Osteoarthritis of right hip Assessment & Plan: POD#1 s/p right THR PT/OT VTE proph d/c planning continue BRITTNI dressing encourage OOB labs in am d/w Dr. Gutierrez, agrees with above Status: Acute (2) Acute blood loss anemia Assessment & Plan: hemodynamically stable labs in am Status: Acute
[2018-01-05] MEDS ORDERED: Oxycodone/Acetaminophen 5/325 mg Tab PO PRN (08:55)
[2018-01-05] MEDS ORDERED: HYDROmorphone 0.5 mg/0.5 ml ISec IVP PRN (08:56)
[2018-01-05] MEDS ORDERED: Vitamin E 100 INTLU SGL PO SCH (09:00)
[2018-01-05] MEDS: Pantoprazole 20 mg EC Tab PO SCH (09:43)
--- NOTE | 2018-01-05 09:55 | CP.PCM.CON ---
History of Present Illness - History of Present Illness History of Present Illness: THE PATIENT IS A 72 YEAR OLD MALE WHO UNDERWENT A RIGHT THR YESTERDAY FOR SEVERE OA NOT IMPROVED BY CONSERVATIVE TREATMENT. HE ALSO HAS A HISTORY OF CAD WITH NONOBSTRUCTIVE LESIONS, CARDIOMYOPATHY, HYPERTENSION, HYPERLIPIDEMIA AND HIV. CARDIOLOGY WAS ASKED TO FOLLOW HIM. HE DENIES ANY CHEST PAIN OR SOB AND STATES HE FEELS GOOD AFTER THE SURGERY. Past Patient History - Past Medical History & Family History Past Medical History?: Yes - Past Social History Smoking Status: Former Smoker - CARDIAC Hx Cardiac Disorders: Yes Hx Heart Attack: Yes Hx Hypercholesterolemia: Yes Hx Hypertension: Yes Other/Comment: Claimed had 2 heart attacks before - PULMONARY Hx Respiratory Disorders: Yes Hx Chronic Obstructive Pulmonary Disease (COPD): Yes Hx Pneumonia: Yes Other/Comment: scarred lung tissue left lobe, lung resection - NEUROLOGICAL Hx Neurological Disorder: No Hx Transient Ischemic Attacks (TIA): Yes - HEENT Hx HEENT Problems: No Hx Cataracts: Yes (L eye Catatract surgery) - RENAL Hx Chronic Kidney Disease: No - ENDOCRINE/METABOLIC Hx Endocrine Disorders: No - HEMATOLOGICAL/ONCOLOGICAL Hx Blood Disorders: Yes Hx AIDS: Yes Hx Blood Transfusions: Yes Hx Blood Transfusion Reaction: No Hx Human Immunodeficiency Virus (HIV): Yes - INTEGUMENTARY Hx Dermatological Problems: No - MUSCULOSKELETAL/RHEUMATOLOGICAL Hx Musculoskeletal Disorders: Yes Hx Arthritis: Yes Hx Falls: Yes - GASTROINTESTINAL Hx Gastrointestinal Disorders: Yes Hx Bowel Surgery: Yes Hx Diverticulitis: Yes Hx Hemorrhoids: Yes - GENITOURINARY/GYNECOLOGICAL Hx Genitourinary Disorders: No Hx Prostate Problems: Yes (On Flomax) - PSYCHIATRIC Hx Psychophysiologic Disorder: No Hx Emotional Abuse: No Hx Physical Abuse: No Hx Substance Use: No - SURGICAL HISTORY Hx Surgeries: Yes Hx Appendectomy: Yes (AGE 3) Hx Cardiac Catheterization: Yes Hx Orthopedic Surgery: Yes (L Hip replacement 2013) Other/Comment: bowel resection, pneumonectomy left lobe. I&D LEFT HIP. PICC LINE INSERTION - ANESTHESIA Hx Anesthesia: Yes Hx Anesthesia Reactions: No Hx Malignant Hyperthermia: No Meds Allergies/Adverse Reactions: Allergies Allergy/AdvReac Type Severity Reaction Status Date / Time morphine Allergy ITCHING Verified 09/04/17 12:41 morp Allergy Intermediate ITCHING Uncoded 09/04/17 12:41 - Medications Medications: Current Medications Acetaminophen (Tylenol 325mg Tab) 975 mg PO Q8 [facility] Last Admin: 01/05/18 01:24 Dose: 975 mg Albuterol/Ipratropium (Duoneb 3 Mg/0.5 Mg (3 Ml) Ud) 3 ml INH RQ4 PRN PRN Reason: Shortness of Breath Last Admin: 01/04/18 17:53 Dose: 3 ml Carvedilol (Coreg) 6.25 mg PO BID [facility] Last Admin: 01/05/18 09:39 Dose: 6.25 mg Enoxaparin Sodium (Lovenox) 40 mg SC DAILY [facility] PRN Reason: Protocol Ferrous Sulfate (Feosol) 325 mg PO BID [facility] Last Admin: 01/05/18 09:40 Dose: 325 mg Folic Acid (Folic Acid) 1 mg PO DAILY [facility] Last Admin: 01/05/18 09:41 Dose: 1 mg Furosemide (Lasix) 20 mg PO DAILY [facility] Last Admin: 01/05/18 09:42 Dose: 20 mg Home Med (Patient's Own Medication) 50 unit PO QPM [facility] PRN Reason: Protocol Last Admin: 01/04/18 17:22 Dose: 50 unit Home Med (Emtricitabine/Tenofov Alafenam [Descovy 200-25 Mg Tablet]) 200 mg PO QPM [facility] Last Admin: 01/04/18 18:07 Dose: 200 mg Hydromorphone HCl (Dilaudid 0.2 Mg/Ml Paint Department Supervisor) 0 mg IV PRN PRN; Protocol PRN Reason: Pain, moderate (4-7) Last Admin: 01/04/18 13:20 Dose: 6 mg Hydromorphone HCl (Dilaudid) 0.5 mg IVP Q4 PRN PRN Reason: Pain, severe (8-10) Cefazolin Sodium/Dextrose (Ancef Iv 2 Gm Duplex) 2 gm in 50 mls @ 50 mls/hr IVPB Q8 [facility] PRN Reason: Protocol Last Admin: 01/05/18 01:23 Dose: 50 mls/hr Lisinopril (Zestril) 40 mg PO DAILY [facility] Last Admin: 01/05/18 09:44 Dose: 40 mg Oxycodone/Acetaminophen (Percocet 5/325 Mg Tab) 1 tab PO Q4 PRN PRN Reason: Pain, moderate (4-7) Stop: 01/08/18 08:56 Pantoprazole Sodium (Protonix Ec Tab) 20 mg PO DAILY [facility] Last Admin: 01/05/18 09:43 Dose: 20 mg Pravastatin Sodium (Pravachol) 80 mg PO HS [facility] Last Admin: 01/04/18 21:39 Dose: 80 mg Senna/Docusate Sodium (Senokot S 50 Mg-8.6 Mg) 1 tab PO HS [facility] Last Admin: 01/04/18 21:39 Dose: 1 tab Spironolactone (Aldactone) 25 mg PO DAILY [facility] Tamsulosin HCl (Flomax) 0.4 mg PO DAILY [facility] Last Admin: 01/05/18 09:40 Dose: 0.4 mg Vitamin E (Vitamin E) 200 intlu PO DAILY [facility] Physical Exam - Respiratory Exam Respiratory Exam: Clear to Auscultation Bilateral - Cardiovascular Exam Cardiovascular Exam: REGULAR RHYTHM, +S1, +S2 - Extremities Exam Additional comments: NO SIGNIFICANT LE EDEMA Results - Vital Signs Recent Vital Signs: Last Vital Signs Temp 98 F 01/05/18 08:24 Pulse 75 01/05/18 09:44 Resp 20 01/05/18 08:24 BP 130/74 01/05/18 09:44 Pulse Ox 98 01/05/18 08:24 - Labs Result Diagrams: 01/05/18 05:30 01/05/18 05:30 Labs: Laboratory Results - last 24 hr 01/05/18 01/05/18 05:30 05:30 WBC 6.0 RBC 2.96 L Hgb 11.2 L D Hct 32.1 L MCV 108.7 H MCH 37.8 H MCHC 34.8 RDW 13.1 Plt Count 107 L D Sodium 134 Potassium 4.7 Chloride 101 Carbon Dioxide 25 Anion Gap 13 BUN 13 Creatinine 1.0 Est GFR ( Amer) > 60 Est GFR (Non-Af Amer) > 60 Random Glucose 108 Calcium 7.8 L Assessment & Plan - Assessment and Plan (Free Text) Assessment: S/P RIGHT THR FOR OA CAD-STABLE HYPERTENSION HYPERLIPIDEMIA Plan: CONTINUE CARVEDILOL, LISINOPRIL, PRAVASTATIN, SPIRONOLACTONE AND LOVENOX FOR REHAB
--- NOTE | 2018-01-05 10:33 | CP.PCM.CON ---
History of Present Illness - History of Present Illness History of Present Illness: A 72 yo male with PMH Non- obstructive CAD, Non-ischemic cardiomyopathy, HIV, COPD, Pulm fibrosis , HTN, HLD was admitted for Right hip replacment for osteoarthritis- induced worsening hip pain which failed outpatient medical managment. Pt was cleared for surgery by [facility] primary doctor. Pt was seen after surgery, on bedside with Dr Bear for pulmonology consult to access for any pulmonary HTN. Patient denies fever, vision change, headache, Nausea, vomit, chest pain, SOB, dizziness diarrhea, polyuria, dysuria, or hematuria. 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 absent: Fatigue, Fever, Lethargy, Weight Gain - Cardiovascular Cardiovascular: absent: Chest Pain, Chest Pain with Activity, Dyspnea on Exertion, Pain Radiating to Arm/Neck/Jaw, Leg Ulcers - Respiratory Respiratory: Chest Congestion. absent: Cough, Dyspnea, Wheezing, Snoring, Stridor Additional comments: SOB on excursion - Gastrointestinal Gastrointestinal: absent: Bloating, Change in Bowel Habits, Change in Stool Character - Genitourinary Genitourinary: absent: Flank Pain, Urinary Frequency, Urinary Hesitance - Psychiatric Psychiatric: absent: Anxiety, Confusion, Depression, Difficulty Concentrating Additional comments: difficulty sleeping - Endocrine Endocrine: absent: Fatigue, Palpitations Past Patient History - Past Medical History & Family History Past Medical History?: Yes - Past Social History Smoking Status: Former Smoker - CARDIAC Hx Cardiac Disorders: Yes Hx Heart Attack: Yes Hx Hypercholesterolemia: Yes Hx Hypertension: Yes Other/Comment: Claimed had 2 heart attacks before - PULMONARY Hx Respiratory Disorders: Yes Hx Chronic Obstructive Pulmonary Disease (COPD): Yes Hx Pneumonia: Yes Other/Comment: scarred lung tissue left lobe, lung resection - NEUROLOGICAL Hx Neurological Disorder: No Hx Transient Ischemic Attacks (TIA): Yes - HEENT Hx HEENT Problems: No Hx Cataracts: Yes (L eye Catatract surgery) - RENAL Hx Chronic Kidney Disease: No - ENDOCRINE/METABOLIC Hx Endocrine Disorders: No - HEMATOLOGICAL/ONCOLOGICAL Hx Blood Disorders: Yes Hx AIDS: Yes Hx Blood Transfusions: Yes Hx Blood Transfusion Reaction: No Hx Human Immunodeficiency Virus (HIV): Yes - INTEGUMENTARY Hx Dermatological Problems: No - MUSCULOSKELETAL/RHEUMATOLOGICAL Hx Musculoskeletal Disorders: Yes Hx Arthritis: Yes Hx Falls: Yes - GASTROINTESTINAL Hx Gastrointestinal Disorders: Yes Hx Bowel Surgery: Yes Hx Diverticulitis: Yes Hx Hemorrhoids: Yes - GENITOURINARY/GYNECOLOGICAL Hx Genitourinary Disorders: No Hx Prostate Problems: Yes (On Flomax) - PSYCHIATRIC Hx Psychophysiologic Disorder: No Hx Emotional Abuse: No Hx Physical Abuse: No Hx Substance Use: No - SURGICAL HISTORY Hx Surgeries: Yes Hx Appendectomy: Yes (AGE 3) Hx Cardiac Catheterization: Yes Hx Orthopedic Surgery: Yes (L Hip replacement 2013) Other/Comment: bowel resection, pneumonectomy left lobe. I&D LEFT HIP. PICC LINE INSERTION - ANESTHESIA Hx Anesthesia: Yes Hx Anesthesia Reactions: No Hx Malignant Hyperthermia: No Meds Allergies/Adverse Reactions: Allergies Allergy/AdvReac Type Severity Reaction Status Date / Time morphine Allergy ITCHING Verified 09/04/17 12:41 morp Allergy Intermediate ITCHING Uncoded 09/04/17 12:41 - Medications Medications: Current Medications Acetaminophen (Tylenol 325mg Tab) 975 mg PO Q8 [facility] Last Admin: 01/05/18 01:24 Dose: 975 mg Albuterol/Ipratropium (Duoneb 3 Mg/0.5 Mg (3 Ml) Ud) 3 ml INH RQ4 PRN PRN Reason: Shortness of Breath Last Admin: 01/04/18 17:53 Dose: 3 ml Carvedilol (Coreg) 6.25 mg PO BID [facility] Last Admin: 01/05/18 09:39 Dose: 6.25 mg Enoxaparin Sodium (Lovenox) 40 mg SC DAILY [facility] PRN Reason: Protocol Ferrous Sulfate (Feosol) 325 mg PO BID [facility] Last Admin: 01/05/18 09:40 Dose: 325 mg Folic Acid (Folic Acid) 1 mg PO DAILY [facility] Last Admin: 01/05/18 09:41 Dose: 1 mg Furosemide (Lasix) 20 mg PO DAILY [facility] Last Admin: 01/05/18 09:42 Dose: 20 mg Home Med (Patient's Own Medication) 50 unit PO QPM [facility] PRN Reason: Protocol Last Admin: 01/04/18 17:22 Dose: 50 unit Home Med (Emtricitabine/Tenofov Alafenam [Descovy 200-25 Mg Tablet]) 200 mg PO QPM [facility] Last Admin: 01/04/18 18:07 Dose: 200 mg Hydromorphone HCl (Dilaudid 0.2 Mg/Ml [employer] Machine Assembler) 0 mg IV PRN PRN; Protocol PRN Reason: Pain, moderate (4-7) Last Admin: 01/04/18 13:20 Dose: 6 mg Hydromorphone HCl (Dilaudid) 0.5 mg IVP Q4 PRN PRN Reason: Pain, severe (8-10) Cefazolin Sodium/Dextrose (Ancef Iv 2 Gm Duplex) 2 gm in 50 mls @ 50 mls/hr IVPB Q8 [facility] PRN Reason: Protocol Last Admin: 01/05/18 01:23 Dose: 50 mls/hr Lisinopril (Zestril) 40 mg PO DAILY [facility] Last Admin: 01/05/18 09:44 Dose: 40 mg Oxycodone/Acetaminophen (Percocet 5/325 Mg Tab) 1 tab PO Q4 PRN PRN Reason: Pain, moderate (4-7) Stop: 01/08/18 08:56 Pantoprazole Sodium (Protonix Ec Tab) 20 mg PO DAILY [facility] Last Admin: 01/05/18 09:43 Dose: 20 mg Pravastatin Sodium (Pravachol) 80 mg PO [facility] Last Admin: 01/04/18 21:39 Dose: 80 mg Senna/Docusate Sodium (Senokot S 50 Mg-8.6 Mg) 1 tab PO HS [facility] Last Admin: 01/04/18 21:39 Dose: 1 tab Spironolactone (Aldactone) 25 mg PO DAILY [facility] Tamsulosin HCl (Flomax) 0.4 mg PO DAILY [facility] Last Admin: 01/05/18 09:40 Dose: 0.4 mg Vitamin E (Vitamin E) 200 intlu PO DAILY [facility] Physical Exam - Constitutional Appears: Well, Non-toxic, Toxic, No Acute Distress - Head Exam Head Exam: ATRAUMATIC, NORMAL INSPECTION, NORMOCEPHALIC - Eye Exam Eye Exam: EOMI, Normal appearance, PERRL Pupil Exam: NORMAL ACCOMODATION, PERRL - ENT Exam ENT Exam: Mucous Membranes Moist, Normal Exam - Neck Exam Neck exam: Positive for: Normal Inspection - Respiratory Exam Respiratory Exam: Decreased Breath Sounds, Clear to Auscultation Bilateral, NORMAL BREATHING PATTERN. absent: Chest Wall Tenderness, Rales, Wheezes, Respiratory Distress, Stridor Additional comments: no breath sound on the left upper quadrant Surgical scar noted on left later side of back - Cardiovascular Exam Cardiovascular Exam: REGULAR RHYTHM, +S1, +S2 - GI/Abdominal Exam GI & Abdominal Exam: Normal Bowel Sounds, Soft. absent: Hypoactive Bowel Sounds , Organomegaly, Tenderness - Extremities Exam Extremities exam: Positive for: normal inspection - Back Exam Back exam: NORMAL INSPECTION Additional comments: surgical laceration on left lateral - Neurological Exam Neurological exam: Alert, CN II-XII Intact, Oriented x3 - Psychiatric Exam Psychiatric exam: Normal Affect, Normal Mood - Skin Skin Exam: Dry, Intact, Normal Color, Warm Results - Vital Signs Recent Vital Signs: Last Vital Signs Temp 98 F 01/05/18 08:24 Pulse 75 01/05/18 09:44 Resp 20 01/05/18 08:24 BP 130/74 01/05/18 09:44 Pulse Ox 98 01/05/18 08:24 - Labs Result Diagrams: 01/05/18 05:30 01/05/18 05:30 Labs: Laboratory Results - last 24 hr 01/05/18 01/05/18 05:30 05:30 WBC 6.0 RBC 2.96 L Hgb 11.2 L D Hct 32.1 L MCV 108.7 H MCH 37.8 H MCHC 34.8 RDW 13.1 Plt Count 107 L D Sodium 134 Potassium 4.7 Chloride 101 Carbon Dioxide 25 Anion Gap 13 BUN 13 Creatinine 1.0 Est GFR ( Amer) > 60 Est GFR (Non-Af Amer) > 60 Random Glucose 108 Calcium 7.8 L Assessment & Plan (1) Pulmonary fibrosis Status: Chronic (2) COPD (chronic obstructive pulmonary disease) Status: Chronic - Assessment and Plan (Free Text) Assessment: Pt is a 72 yo m with COPD, Pulmonary fibrosis, HTN, CAD, non ischemich cardiomiopathy, HIV present for elective RIght hip arthroplasty that was consulted pulmonology for accessing Pulmonary HTN Vitals : stable Xray: reviewd pulm scaring on left upper cuadrant most likely due to surgery after tb resection lab: reviewed Physical exam : Lung clear in all quadrant except decrease lung sound on left upper cuadrant, no JVD, No extremities edema, no cyanosis, no sign for pulm Htn Pt was seen and examined with Dr Bear. As per Dr. Bear there is no indication of Pulmonary HTn Plan Re-consult as needed Plan: Re-consult if needed - Date & Time Date: 01/05/18 Time: 09:00
[2018-01-05] MEDS: Enoxaparin 40 mg Syringe SC SCH (12:00)
--- NOTE | 2018-01-05 12:28 | CP.PCM.PN ---
<Elaine Amaya - Last Filed: 01/05/18 14:56> Subjective - Date & Time of Evaluation Date of Evaluation: 01/05/18 Time of Evaluation: 12:25 - Subjective Subjective: 72 year-old male post-op day 1 for an elective total right hip replacement. Patient was examined in chair next to bed and states he is comfortable with mild pain from surgery. As of this morning he had already ambulated a short distance. Straight catheterization done overnight due to urinary retention which is likely secondary to anesthesia and narcotic pain medication as well as known BPH. Patient states he has a history of post-op urinary retention which usually resolves without intervention. He denies dizziness, nausea, vomiting and diarrhea. Emphasis was placed on importance of incentive spirometer. Patient lives on the third floor of a non-elevator building and will be transferred to TCU. Objective - Vital Signs/Intake and Output Vital Signs (last 24 hours): Temp Pulse Resp BP Pulse Ox 98 F 96 H 20 130/74 95 01/05/18 08:24 01/05/18 10:14 01/05/18 08:24 01/05/18 09:44 01/05/18 10:14 Intake and Output: 01/05/18 01/05/18 06:59 18:59 Intake Total 2200 Output Total 550 Balance 1650 - Medications Medications: Current Medications Acetaminophen (Tylenol 325mg Tab) 975 mg PO Q8 [facility] Last Admin: 01/05/18 11:01 Dose: 975 mg Albuterol/Ipratropium (Duoneb 3 Mg/0.5 Mg (3 Ml) Ud) 3 ml INH RQ4 PRN PRN Reason: Shortness of Breath Last Admin: 01/04/18 17:53 Dose: 3 ml Carvedilol (Coreg) 6.25 mg PO BID [facility] Last Admin: 01/05/18 09:39 Dose: 6.25 mg Enoxaparin Sodium (Lovenox) 40 mg SC DAILY [facility] PRN Reason: Protocol Ferrous Sulfate (Feosol) 325 mg PO BID [facility] Last Admin: 01/05/18 09:40 Dose: 325 mg Folic Acid (Folic Acid) 1 mg PO DAILY [facility] Last Admin: 01/05/18 09:41 Dose: 1 mg Furosemide (Lasix) 20 mg PO DAILY [facility] Last Admin: 01/05/18 09:42 Dose: 20 mg Home Med (Patient's Own Medication) 50 unit PO QPM [facility] PRN Reason: Protocol Last Admin: 01/04/18 17:22 Dose: 50 unit Home Med (Emtricitabine/Tenofov Alafenam [Descovy 200-25 Mg Tablet]) 200 mg PO QPM [facility] Last Admin: 01/04/18 18:07 Dose: 200 mg Hydromorphone HCl (Dilaudid 0.2 Mg/Ml [employer] Machine [employer] Automatic) 0 mg IV PRN PRN; Protocol PRN Reason: Pain, moderate (4-7) Last Admin: 01/04/18 13:20 Dose: 6 mg Hydromorphone HCl (Dilaudid) 0.5 mg IVP Q4 PRN PRN Reason: Pain, severe (8-10) Cefazolin Sodium/Dextrose (Ancef Iv 2 Gm Duplex) 2 gm in 50 mls @ 50 mls/hr IVPB Q8 [facility] PRN Reason: Protocol Last Admin: 01/05/18 10:59 Dose: 50 mls/hr Lisinopril (Zestril) 40 mg PO DAILY [facility] Last Admin: 01/05/18 09:44 Dose: 40 mg Oxycodone/Acetaminophen (Percocet 5/325 Mg Tab) 1 tab PO Q4 PRN PRN Reason: Pain, moderate (4-7) Stop: 01/08/18 08:56 Pantoprazole Sodium (Protonix Ec Tab) 20 mg PO DAILY [facility] Last Admin: 01/05/18 09:43 Dose: 20 mg Pravastatin Sodium (Pravachol) 80 mg PO [facility] Last Admin: 01/04/18 21:39 Dose: 80 mg Senna/Docusate Sodium (Senokot S 50 Mg-8.6 Mg) 1 tab PO HS [facility] Last Admin: 01/04/18 21:39 Dose: 1 tab Spironolactone (Aldactone) 25 mg PO DAILY [facility] Tamsulosin HCl (Flomax) 0.4 mg PO DAILY [facility] Last Admin: 01/05/18 09:40 Dose: 0.4 mg Vitamin E (Vitamin E) 200 intlu PO DAILY [facility] Last Admin: 01/05/18 11:00 Dose: 200 intlu - Labs Labs: 01/05/18 05:30 01/05/18 05:30 - Constitutional Appears: Well - Head Exam Head Exam: ATRAUMATIC - Respiratory Exam Respiratory Exam: Clear to Ausculation Bilateral, NORMAL BREATHING PATTERN - Cardiovascular Exam Cardiovascular Exam: REGULAR RHYTHM - Extremities Exam Additional comments: patient able to move phalanges on both sides, denies tingling or numbness; dressing over right hip and thigh not removed but appears clean - Skin Skin Exam: Normal Color, Warm Assessment and Plan - Assessment and Plan (Free Text) Assessment: 1. s/p R total hip replacement due to osteoarthritis Ortho: Dr. Gutierrez Infection prophylaxis Ancef x3 Pain Control: Dilaudid 0.5 mg IVP Q4 PRN, Percocet 5/325 Q4 PRN PT/OT Transfer to TCU tomorrow (01/06/18) 2. post-operative urinary Retention Likely secondary to anesthesia and narcotics and hx of BPH Straight catheterization if continuation of difficulty voiding 3. non-obstructive CAD, non-ischemic cardiomyopathy, HTN, HLD cont home meds: Pravastatin Sodium 80 mg PO HS Lisinopril 40 mg PO daily Carvedilol 6.25 mg PO BID Aspirin 81 mg PO daily Furosemide 20 mg PO daily Hold spironolactone - patient slightly hypovolemic due to surgery 4. HIV continue home meds: Dolutegravir Sodium 50 mg PO QPM Emtricitabine/Tenofov Alafenam 200-300 mg PO daily 5. moderate COPD stable DuoNeb Q4 as needed Aggressive incentive spirometer 6. pulmonary fibrosis stable Aggressive incentive spirometer 7. BPH continue home meds: Tamsulosin HCl 0.4 mg PO daily 8. VTE ppx per orthopedic surgery <Lety Veras - Last Filed: 01/05/18 15:46> Objective - Vital Signs/Intake and Output Vital Signs (last 24 hours): Temp Pulse Resp BP Pulse Ox 98 F 96 H 20 130/74 95 01/05/18 08:24 01/05/18 10:14 01/05/18 08:24 01/05/18 09:44 01/05/18 10:14 Intake and Output: 01/05/18 01/05/18 06:59 18:59 Intake Total 2200 Output Total 550 Balance 1650 - Medications Medications: Current Medications Acetaminophen (Tylenol 325mg Tab) 975 mg PO Q8 [facility] Last Admin: 01/05/18 11:01 Dose: 975 mg Albuterol/Ipratropium (Duoneb 3 Mg/0.5 Mg (3 Ml) Ud) 3 ml INH RQ4 PRN PRN Reason: Shortness of Breath Last Admin: 01/04/18 17:53 Dose: 3 ml Carvedilol (Coreg) 6.25 mg PO BID [facility] Last Admin: 01/05/18 09:39 Dose: 6.25 mg Enoxaparin Sodium (Lovenox) 40 mg SC DAILY [facility] PRN Reason: Protocol Ferrous Sulfate (Feosol) 325 mg PO BID [facility] Last Admin: 01/05/18 09:40 Dose: 325 mg Folic Acid (Folic Acid) 1 mg PO DAILY [facility] Last Admin: 01/05/18 09:41 Dose: 1 mg Furosemide (Lasix) 20 mg PO DAILY [facility] Last Admin: 01/05/18 09:42 Dose: 20 mg Home Med (Patient's Own Medication) 50 unit PO QPM [facility] PRN Reason: Protocol Last Admin: 01/04/18 17:22 Dose: 50 unit Home Med (Emtricitabine/Tenofov Alafenam [Descovy 200-25 Mg Tablet]) 200 mg PO QPM [facility] Last Admin: 01/04/18 18:07 Dose: 200 mg Hydromorphone HCl (Dilaudid) 0.5 mg IVP Q4 PRN PRN Reason: Pain, severe (8-10) Cefazolin Sodium/Dextrose (Ancef Iv 2 Gm Duplex) 2 gm in 50 mls @ 50 mls/hr IVPB Q8 [facility] PRN Reason: Protocol Last Admin: 01/05/18 10:59 Dose: 50 mls/hr Lisinopril (Zestril) 40 mg PO DAILY [facility] Last Admin: 01/05/18 09:44 Dose: 40 mg Oxycodone/Acetaminophen (Percocet 5/325 Mg Tab) 1 tab PO Q4 PRN PRN Reason: Pain, moderate (4-7) Stop: 01/08/18 08:56 Pantoprazole Sodium (Protonix Ec Tab) 20 mg PO DAILY [facility] Last Admin: 01/05/18 09:43 Dose: 20 mg Pravastatin Sodium (Pravachol) 80 mg PO HS [facility] Last Admin: 01/04/18 21:39 Dose: 80 mg Senna/Docusate Sodium (Senokot S 50 Mg-8.6 Mg) 1 tab PO HS [facility] Last Admin: 01/04/18 21:39 Dose: 1 tab Spironolactone (Aldactone) 25 mg PO DAILY [facility] Tamsulosin HCl (Flomax) 0.4 mg PO DAILY [facility] Last Admin: 01/05/18 09:40 Dose: 0.4 mg Vitamin E (Vitamin E) 200 intlu PO DAILY [facility] Last Admin: 01/05/18 11:00 Dose: 200 intlu - Labs Labs: 01/05/18 05:30 01/05/18 05:30 Attending/Attestation - Attestation I have personally seen and examined this patient.: Yes I have fully participated in the care of the patient.: Yes I have reviewed all pertinent clinical information, including history, physical exam and plan: Yes
[2018-01-05] MEDS: EMTRICITABINE PO SCH (17:39)
[2018-01-05] MEDS: DOLUTEGRAVIR SODIUM 50 MG PO SCH (17:39)
[2018-01-05] MEDS: TENOFOV ALAFENAM PO SCH (17:39)
--- NOTE | 2018-01-05 19:04 | OP ---
PROCEDURE DATE: 01/04/2018 LOCATION: [facility]. PREOPERATIVE DIAGNOSES: 1. Post-traumatic osteoarthritis of the right hip. 2. Human immunodeficiency syndrome (human immunodeficiency virus positive). POSTOPERATIVE DIAGNOSES: 1. Post-traumatic osteoarthritis of the right hip. 2. Iliopsoas tendon contracture. 3. Human immunodeficiency virus syndrome (human immunodeficiency virus positive). OPERATIVE PROCEDURES: 1. Right total hip replacement, arthroplasty, anterior approach. 2. Femoral neck osteotomy. 3. Release of iliopsoas tendon. 4. Autograft bone graft to the acetabulum. 5. Computer navigation using accelerometer technology. SURGEON: Chavez Gutierrez MD BEAMER HAND: Jennifer Patel, certified registered nursing first officer and flight instructor. SECOND G[employer] UNIT FEEDER: Ruben Monique PA-C. SPECIMEN REMOVED: Bone, synovium, cartilage. BLOOD LOSS: Approximately 245 mL. BLOOD PRODUCTS GIVEN: None. DRAINS USED: A BRITTNI wound VAC. POSTOPERATIVE CONDITION: Stable. TIME OF THE SURGERY: 09:15 incision time, time in the room anesthesia induction time 08:00 a.m. OPERATIVE INDICATION: Teodoro Rojas is a 72-year-old gentleman who is HIV positive. The patient has severe pain and restricted range of motion of the right hip. The patient had undergone a traumatic injury, causing to slip and fall with fracture of the left hip that fracture mandated open reduction and internal fixation of a periprosthetic left hip fracture as a direct cause result of that injury. The patient had extensive rehab and also had a secondary procedure of the left hip for incision and drainage of superficial infection. During this period of time, the patient began experiencing increasing right hip pain and limp on the right side. The patient was treated conservatively for a period of time with ice, anti-inflammatory medication, activity modification, and therapy. The patient can no longer withstand the pain. Extensive workup was accomplished including physical examination, CT scan examination and activity modification, anti-inflammatory medication. Pros, cons, risks, and benefits of the surgical approach, total hip replacement, arthroplasty were discussed. The possibility of mechanical failure, infection, thromboembolic disease, secondary or tertiary surgery was discussed. The patient can no longer withstand the discomfort and wished the surgery be accomplished. OPERATIVE PROCEDURE: After having obtained informed consent, after the satisfactory induction of general endotracheal anesthesia, the patient identified as Teodoro Rojas and was placed in the supine position in the [facility] [place], [place] positioner. Under the surgeon's direction, the fluoroscope was positioned, video images were generated, therapeutic decisions were made therefrom especially with respect to the intraoperative planning of the femoral neck osteotomy to assure correct leg lengths. After the satisfactory induction of the anesthetic, after having identified side, site and procedure and a critical pause/time-out after the satisfactory induction of the anesthetic, the patient identified as Teodoro Rojas in the supine position with all bony prominence well padded. Right lower extremity was prepped and free draped in the usual fashion for lower extremity surgery. This having been accomplished under the surgeon's direction, the fluoroscope was positioned, video images were generated, therapeutic decisions were made therefrom. Informed consent had been obtained. The computer navigation (accelerometer based [employer] technology) was employed from the beginning. After sterilely prepping and draping, registration of the computer commenced with registration of the ASIS on the right and the left in the transverse plane. The camera had been oriented and with the ground gravity as the frontal plane, accelerometer is employed. This having been accomplished at this point in time, an incision was described one fingerbreadth distal to the ASIS and three fingerbreadths posterior. The tensor fascia femoris muscle was identified. The Dubon-Peck interval was identified as well. An incision was described four inches in length superficial to the tensor fascia femoris muscle. After sterilely prepping and draping, after having obtained informed consent, after the satisfactory induction of the anesthetic, the skin incision was carried down through the skin and subcutaneous tissue. Hemostasis controlled with electrocautery and the Aquamantys. Dissection was carried down to the fascia on the tensor fascia femoris. Adequate anesthetic relaxation was obtained. The fascia was divided and the fascia was taken down with an Allis clamp grasping the investing fascia. The muscle was taken down from the investing fascia. The Weitlaner retractor was placed and the posterior aspect of the rectus femoris muscle is identified. The posterior aspect of the rectus femoris is controlled with hemostasis controlled with the Aquamantys. The Weitlaner retractor was placed deeper. The fascia was carefully divided. The anterior branch of the lateral femoral circumflex vessels was identified. It was divided and controlled with ligature. At this point in time with the leg in internal rotation, the fat pad superficial to the hip joint capsule was excised and especially in the area of the anterior inferior iliac spine. This having been accomplished, the reflected head of rectus femoris was identified and this was carefully divided. At this point in time with the hip in internal rotation, the dissection was carried down posterior to the acetabulum. The femur was brought back into 15 degrees of external rotation. The Medacta retractor was placed and the capsule was elevated and brought back laterally. This having been accomplished, the Medacta retractor was placed. It was tagged using a stay suture. This having been accomplished under the surgeon's direction, the fluoroscope had been positioned, video images were generated, therapeutic decisions were made therefrom. The capsule was tagged and an episiotomy was accomplished as well as superiorly to allow positioning of the appropriate retractor. The Medacta retractor is placed deeper to expose the femoral neck and the femoral neck osteotomy was accomplished from the saddle to a point approximately one fingerbreadth above the lesser trochanter. The osteotomy is accomplished and with external rotation of the femur, the cut femoral neck was identified and the corkscrew was placed into the cut femoral neck and the femoral head and neck is removed from the acetabulum. The acetabulum was sized. This having been accomplished, sizing accomplished to 49 mm, the labrum was excised and the deep Weitlaner retractor was placed with an angled Hohmann placed superiorly. The reflected head of rectus femoris had been elevated. The Medacta Hohmann retractor was placed. The modified Charnley retractor was placed deep to the capsule and is offering an excellent view of the acetabulum. The transverse acetabular ligament was released and with the lower extremity in 45 degrees of external rotation with the cut femoral neck having been preserved, sequential reaming was carried out to a 54 mm acetabular trial. Reaming was accomplished first medially to the teardrop under computer navigation controlled and then superiorly and posteriorly as well. This having been accomplished using the computer navigation, the camera was placed on the supports. It should be noted that on the anterior superior iliac spine two incisions were accomplished. The supports for the camera were drilled into the iliac crest. The computer navigation is again registered and found to be acceptable. The position of the acetabular component is found to be 40 degrees of abduction or inclination and approximately 16 degrees of anteversion. This having been accomplished, the reaming is denuded of articular cartilage for bone graft. This having been accomplished, bone grafting is accomplished to the acetabulum. Trialing had been accomplished under the surgeon's direction, the fluoroscope was positioned, video images were generated, therapeutic decisions were made therefrom. The cup position was found to be acceptable at this point in time. The acetabular component was impacted and the position of the cup was found to be approximately 40 degrees of abduction and 16 degrees of anteversion. The position was found to be excellent. This having been accomplished, the bridge of bone between the neck and the trochanter was removed. The femoral shaft was identified with the rasp and sequential reaming was carried out to a #4 femoral component. A #4 femoral component was introduced into the femoral shaft and trialing was accomplished with the -3.5 x 28 mm head with the 54 mm outer bearing. It should be noted that the acetabular component had been impacted 54 mm with allograft in the prepared acetabulum. With the femur in external rotation, the pubofemoral ligament was released. The iliopsoas tendon was partially released and the ischial femoral ligament was released as well as the iliofemoral release. At this point in time, the femur is externally rotated, the femur was extended and abducted allowing visualization of the proximal femur. The bridge of bone between the neck of the trochanter was removed and that was removed with a box chisel. The canal was found with the rasp. Sequential broaching was carried out to a #4 with the appropriate head and neck assembling -3.5 with the 54 mm polyethylene outer bearing. This was reduced and the hip was found to be stable in all planes. The wound was thoroughly irrigated. Iliopsoas tendon had been released, computer navigation had been employed to accomplish the positioning of the acetabular component. At this point in time, the rasp was removed. The #4 Medacta collared femoral stem was introduced with the -3.5 head and the 54 mm outer bearing. The hip was reduced, found to be stable in all planes. It should be noted that the femoral neck osteotomy was carefully planned intraoperatively and deserves a secondary procedure code because of the importance to obtain accurate leg lengths. The leg lengths were found to be equal and the wound was thoroughly irrigated. Gelfoam and thrombin had been employed and closures in layers. The capsule was replaced followed by closure of the fascia on the tensor fascia femoris followed by 0 Quill and venessa for skin. A BRITTNI wound VAC drain was applied to the wound and application of the wound VAC was accomplished as well. Compression dressing was applied. Postoperative x-rays reveal excellent positioning of the construct. OPERATIVE PROCEDURES: Again, 1. Right total hip replacement, anterior approach. 2. Femoral neck osteotomy. 3. Release of iliopsoas tendon. 4. Autograft bone graft to the acetabulum. 5. Computer navigation. Chavez Gutierrez MD
[2018-01-05] MEDS: Pravastatin Sodium 40 MG TAB PO SCH (21:15)
[2018-01-05] MEDS: Docusate-Senna 50 mg-8.6 mg Tab PO SCH (21:15)
[2018-01-06 07:16] LABS: HEMOGLOBIN 10.7 g/dL (12.0-18.0); MEAN CELL VOLUME 108.8 fl (80.0-94.0); MEAN CORPUSCULAR HEMOGLOBIN 37.4 pg (27.0-31.0); MEAN CORPUSCULAR HGB CONC 34.4 g/dL (33.0-37.0); RBC 2.87 Mil/uL (4.40-5.90); WHITE BLOOD COUNT 6.1 K/uL (4.8-10.8)
[2018-01-06 07:24] LABS: BLOOD UREA NITROGEN 11 mg/dl (9-20); CALCIUM 7.9 mg/dL (8.4-10.2); GFR AFRICAN-AMERICAN > 60; GFR NON-AFRICAN AMERICAN > 60
[2018-01-06 08:09] VITALS: BP 120/64; PULSE 80; RESP 20; TEMP 98; O2SAT 96
[2018-01-06] MEDS: Pantoprazole 20 mg EC Tab PO SCH (08:13)
[2018-01-06] MEDS: Enoxaparin 40 mg Syringe SC SCH (08:16)
--- NOTE | 2018-01-06 10:04 | CP.PCM.DIS ---
Provider - Provider Date of Admission: 01/04/18 11:44 Attending physician: Carolyn Brewster DO Primary care physician: Chavez Gutierrez III, MD Consults: Dr Matt Robb Time Spent in preparation of Discharge (in minutes): 25 Diagnosis - Discharge Diagnosis (1) Status post total hip replacement, right Status: Acute Comment: to continue PT/OT in TCU. pain well controlled (2) CAD (coronary artery disease) Status: Chronic Comment: asymptomatic. continue ASA, Carvedilol and statin (3) Acute urinary retention Status: Resolved Comment: resolved (4) HIV (human immunodeficiency virus infection) Status: Chronic Comment: continue home meds: Dolutegravir and Emtricitabine/Tenofov (5) COPD (chronic obstructive pulmonary disease) Status: Chronic Comment: asymptomatic. Duoneb q 4hrs prn Hospital Course - Lab Results Lab Results: Most Recent Lab Values WBC 6.1 K/uL (4.8-10.8) 01/06/18 06:50 RBC 2.87 Mil/uL (4.40-5.90) L 01/06/18 06:50 Hgb 10.7 g/dL (12.0-18.0) L 01/06/18 06:50 Hct 31.2 % (35.0-51.0) L 01/06/18 06:50 MCV 108.8 fl (80.0-94.0) H 01/06/18 06:50 MCH 37.4 pg (27.0-31.0) H 01/06/18 06:50 MCHC 34.4 g/dL (33.0-37.0) 01/06/18 06:50 RDW 13.0 % (11.5-14.5) 01/06/18 06:50 Plt Count 100 K/uL (130-400) L 01/06/18 06:50 Sodium 132 mmol/l (132-148) 01/06/18 06:50 Potassium 4.1 MMOL/L (3.6-5.0) 01/06/18 06:50 Chloride 102 mmol/L (98-107) 01/06/18 06:50 Carbon Dioxide 23 mmol/L (22-30) 01/06/18 06:50 Anion Gap 11 (10-20) 01/06/18 06:50 BUN 11 mg/dl (9-20) 01/06/18 06:50 Creatinine 1.0 mg/dl (0.8-1.5) 01/06/18 06:50 Est GFR ( Amer) > 60 01/06/18 06:50 Est GFR (Non-Af Amer) > 60 01/06/18 06:50 Random Glucose 98 mg/dL (75-110) 01/06/18 06:50 Calcium 7.9 mg/dL (8.4-10.2) L 01/06/18 06:50 25-OH Vitamin D Total 40.7 NG/ML (30.0-100.0) 01/05/18 09:06 Blood Type O POSITIVE 01/04/18 06:54 Antibody Screen Negative 01/04/18 06:54 Crossmatch See Detail 01/04/18 06:54 BBK History Checked Patient has bt 01/04/18 06:54 - Hospital Course Hospital Course: 72 yo male with history of COPD, CAD, HIV and HLD had right THR on 01/04/18 after failing conservative management of OA of the right hip. Patient did well and now will continue therapy and management in TCU. Discharge Exam - Head Exam Head Exam: ATRAUMATIC - Eye Exam Eye Exam: absent: Scleral icterus - ENT Exam ENT Exam: Mucous Membranes Moist - Respiratory Exam Respiratory Exam: absent: Rales, Rhonchi, Wheezes, Respiratory Distress - Cardiovascular Exam Cardiovascular Exam: REGULAR RHYTHM, +S1, +S2 - GI/Abdominal Exam GI & Abdominal Exam: Soft. absent: Tenderness - Rectal Exam Rectal Exam: Deferred - Back Exam Back exam: NORMAL INSPECTION - Neurological Exam Neurological exam: Alert, Oriented x3 - Psychiatric Exam Psychiatric exam: Normal Affect - Skin Skin Exam: Dry, Intact Discharge Plan - Follow Up Plan Condition: GOOD Disposition: REHAB FACILITY/REHAB UNIT Instructions: Total Hip Replacement (DC) Referrals: Chavez Gutierrez III, MD [Primary Care Provider] - Sagar Bear MD [Staff Provider] -
--- NOTE | 2018-01-06 11:05 | CP.PCM.PN ---
Subjective - Date & Time of Evaluation Date of Evaluation: 01/06/18 Time of Evaluation: 10:45 - Subjective Subjective: S- pt comfortable; minmal pain- taking only Tylenol for pain Objective - Vital Signs/Intake and Output Vital Signs (last 24 hours): Temp Pulse Resp BP Pulse Ox 98.0 F 80 20 120/64 96 01/06/18 08:07 01/06/18 08:07 01/06/18 08:07 01/06/18 08:15 01/06/18 08:07 - Medications Medications: Current Medications Acetaminophen (Tylenol 325mg Tab) 975 mg PO Q8@0500,1300,2100 [facility] Last Admin: 01/06/18 05:30 Dose: Not Given Albuterol/Ipratropium (Duoneb 3 Mg/0.5 Mg (3 Ml) Ud) 3 ml INH RQ4 PRN PRN Reason: Shortness of Breath Last Admin: 01/04/18 17:53 Dose: 3 ml Carvedilol (Coreg) 6.25 mg PO BID [facility] Last Admin: 01/06/18 08:15 Dose: 6.25 mg Enoxaparin Sodium (Lovenox) 40 mg SC DAILY [facility] PRN Reason: Protocol Last Admin: 01/06/18 08:16 Dose: 40 mg Ferrous Sulfate (Feosol) 325 mg PO BID [facility] Last Admin: 01/06/18 08:13 Dose: 325 mg Folic Acid (Folic Acid) 1 mg PO DAILY [facility] Last Admin: 01/06/18 08:16 Dose: 1 mg Furosemide (Lasix) 20 mg PO DAILY [facility] Last Admin: 01/06/18 08:15 Dose: 20 mg Home Med (Patient's Own Medication) 50 unit PO QPM [facility] PRN Reason: Protocol Last Admin: 01/05/18 17:39 Dose: 50 unit Home Med (Emtricitabine/Tenofov Alafenam [Descovy 200-25 Mg Tablet]) 200 mg PO QPM [facility] Last Admin: 01/05/18 17:39 Dose: 200 mg Hydromorphone HCl (Dilaudid) 0.5 mg IVP Q4 PRN PRN Reason: Pain, severe (8-10) Lisinopril (Zestril) 40 mg PO DAILY [facility] Last Admin: 01/06/18 08:14 Dose: 40 mg Oxycodone/Acetaminophen (Percocet 5/325 Mg Tab) 1 tab PO Q4 PRN PRN Reason: Pain, moderate (4-7) Stop: 01/08/18 08:56 Pantoprazole Sodium (Protonix Ec Tab) 20 mg PO DAILY [facility] Last Admin: 01/06/18 08:13 Dose: 20 mg Pravastatin Sodium (Pravachol) 80 mg PO HS [facility] Last Admin: 01/05/18 21:15 Dose: 80 mg Senna/Docusate Sodium (Senokot S 50 Mg-8.6 Mg) 1 tab PO HS [facility] Last Admin: 01/05/18 21:15 Dose: 1 tab Spironolactone (Aldactone) 25 mg PO DAILY [facility] Tamsulosin HCl (Flomax) 0.4 mg PO DAILY [facility] Last Admin: 01/06/18 08:16 Dose: 0.4 mg Vitamin E (Vitamin E) 200 intlu PO DAILY [facility] Last Admin: 01/05/18 11:00 Dose: 200 intlu - Labs Labs: 01/06/18 06:50 01/06/18 06:50 - Additional Findings Additional findings: Objective wound benign/Leonid functioning orthopedically stable / minimal discomfort Assessment and Plan - Assessment and Plan (Free Text) Assessment: A- s/p THR- excellent progress P- orthopedically stable for rehab transfer
--- NOTE | 2018-01-06 12:19 | PQF ---
PROVIDER RESPONSE TEXT: Asymptomatic , HIV + only Cont antiretrovirals REVIEWER QUERY TEXT: HIV Clarification and Associated Conditions HIV (Human immunodeficiency virus) is documented in the medical record. Please specify the type Such as: -- Symptomatic / AIDS -- Asymptomatic / HIV + only -- Other, please specify The patient's Clinical Indicators include: Documentation of HIV. Medication includes: Ayaan Maher Query created by: Anh De La Torre on 01/05/2018 1:33 PM Electronically signed by: Lety Veras MD 01/06/2018 12:15 PM
== END 2018-01-06 14:08 | DRG 470 ==
LOC: H.OPSURG 06:05 → H.ERHOLD 11:44 → H.MEDSURG1 14:54
PROVIDERS: ADMIT Student in an Organized Health Care Education/Training Program; ATTEND Student in an Organized Health Care Education/Training Program
PROC: 0SR90JZ Replacement of Right Hip Joint with Synthetic Substitute, Open Approach (ICD-10-PCS; principal; 2018-01-04 07:45)
DX: M16.51 Unilateral post-traumatic osteoarthritis, right hip (principal); I42.8 Other cardiomyopathies; D62 Acute posthemorrhagic anemia; M16.11 Unilateral primary osteoarthritis, right hip; Z21 Asymptomatic human immunodeficiency virus [HIV] infection status; I25.10 Atherosclerotic heart disease of native coronary artery without angina pectoris; E86.1 Hypovolemia; R33.8 Other retention of urine; J84.10 Pulmonary fibrosis, unspecified; I10 Essential (primary) hypertension; E78.5 Hyperlipidemia, unspecified; J44.9 Chronic obstructive pulmonary disease, unspecified; N40.1 Benign prostatic hyperplasia with lower urinary tract symptoms; E78.00 Pure hypercholesterolemia, unspecified; I25.2 Old myocardial infarction; Z86.73 Personal history of transient ischemic attack (TIA), and cerebral infarction without residual deficits; Z87.81 Personal history of (healed) traumatic fracture; Z87.01 Personal history of pneumonia (recurrent); Z79.82 Long term (current) use of aspirin; Z87.891 Personal history of nicotine dependence; Z88.6 Allergy status to analgesic agent

== ENCOUNTER 2018-01-06 11:40 | Inpatient (IN) | payer OTHER ==
[2017-09-02 11:47] VITALS: BMI 25.9
[2018-01-06 14:02] VITALS: RESP 20
[2018-01-06] MEDS ORDERED: Albuterol-Ipratrop 3 mg / 0.5 (3 ml) UD INH PRN (15:01)
[2018-01-06] MEDS ORDERED: HYDROmorphone 0.5 mg/0.5 ml ISec IVP PRN (15:01)
[2018-01-06] MEDS: DOLUTEGRAVIR SODIUM 50 MG PO SCH (17:08)
[2018-01-06] MEDS: TENOFOV ALAFENAM PO SCH (17:59)
[2018-01-06] MEDS: EMTRICITABINE PO SCH (17:59)
[2018-01-06] MEDS: Docusate-Senna 50 mg-8.6 mg Tab PO SCH (21:00)
[2018-01-06] MEDS: Pravastatin Sodium 40 MG TAB PO SCH (21:01)
[2018-01-07] MEDS: Vitamin E 100 INTLU SGL PO SCH (09:00)
[2018-01-07] MEDS: Pantoprazole 20 mg EC Tab PO SCH (09:01)
[2018-01-07] MEDS: Enoxaparin 40 mg Syringe SC SCH (09:02)
--- NOTE | 2018-01-07 11:41 | CP.PCM.HP ---
History of Present Illness - History of Present Illness History of Present Illness: 72 yo male with history of COPD, CAD, HIV and HLD had right THR on 01/04/18 after failing conservative management of OA of the right hip. Patient did well postop. On 01/06/18 he was transferred to TCU for continuation of management and therapy. Present on Admission - Present on Admission Any Indicators Present on Admission: No History of DVT/PE: No History of Uncontrolled Diabetes: No Urinary Catheter: No Decubitus Ulcer Present: No Review of Systems - Review of Systems All systems: reviewed and no additional remarkable complaints except (aside from those mentioned above, 12 point system review were negative by me) Past Patient History - Past Medical History & Family History Past Medical History?: Yes - Past Social History Smoking Status: Former Smoker - CARDIAC Hx Cardiac Disorders: Yes Hx Heart Attack: Yes Hx Hypercholesterolemia: Yes Hx Hypertension: Yes Other/Comment: Claimed had 2 heart attacks before - PULMONARY Hx Respiratory Disorders: Yes Hx Chronic Obstructive Pulmonary Disease (COPD): Yes Hx Pneumonia: Yes Other/Comment: scarred lung tissue left lobe, lung resection - NEUROLOGICAL Hx Neurological Disorder: No Hx Transient Ischemic Attacks (TIA): Yes - HEENT Hx HEENT Problems: No Hx Cataracts: Yes (L eye Catatract surgery) - RENAL Hx Chronic Kidney Disease: No - ENDOCRINE/METABOLIC Hx Endocrine Disorders: No - HEMATOLOGICAL/ONCOLOGICAL Hx Blood Disorders: Yes Hx AIDS: Yes Hx Blood Transfusions: Yes Hx Blood Transfusion Reaction: No Hx Human Immunodeficiency Virus (HIV): Yes - INTEGUMENTARY Hx Dermatological Problems: No - MUSCULOSKELETAL/RHEUMATOLOGICAL Hx Musculoskeletal Disorders: Yes Hx Arthritis: Yes Hx Falls: Yes - GASTROINTESTINAL Hx Gastrointestinal Disorders: Yes Hx Bowel Surgery: Yes Hx Diverticulitis: Yes Hx Hemorrhoids: Yes - GENITOURINARY/GYNECOLOGICAL Hx Genitourinary Disorders: No Hx Prostate Problems: Yes (On Flomax) - PSYCHIATRIC Hx Psychophysiologic Disorder: No Hx Emotional Abuse: No Hx Physical Abuse: No Hx Substance Use: No - SURGICAL HISTORY Hx Surgeries: Yes Hx Appendectomy: Yes (AGE 3) Hx Cardiac Catheterization: Yes Hx Orthopedic Surgery: Yes (L Hip replacement 2013) Other/Comment: bowel resection, pneumonectomy left lobe. I&D LEFT HIP. PICC LINE INSERTION. Right HIP replacement 12/2017 - ANESTHESIA Hx Anesthesia: Yes Hx Anesthesia Reactions: No Hx Malignant Hyperthermia: No Meds Allergies/Adverse Reactions: Allergies Allergy/AdvReac Type Severity Reaction Status Date / Time morphine Allergy ITCHING Verified 01/06/18 13:56 morp Allergy Intermediate ITCHING Uncoded 01/06/18 13:56 Physical Exam - Constitutional Appears: No Acute Distress - Head Exam Head Exam: ATRAUMATIC - Eye Exam Eye Exam: absent: Scleral icterus - ENT Exam ENT Exam: Mucous Membranes Moist - Neck Exam Neck exam: Negative for: Meningismus - Respiratory Exam Respiratory Exam: absent: Rales, Rhonchi, Wheezes, Respiratory Distress - Cardiovascular Exam Cardiovascular Exam: REGULAR RHYTHM, +S1, +S2 - GI/Abdominal Exam GI & Abdominal Exam: Soft. absent: Tenderness - Rectal Exam Rectal Exam: Deferred - Extremities Exam Extremities exam: Negative for: full ROM (limited ROM of right hip) - Neurological Exam Neurological exam: Alert, Oriented x3 - Psychiatric Exam Psychiatric exam: Normal Affect - Skin Skin Exam: Dry, Intact Results - Vital Signs Recent Vital Signs: Last Vital Signs Temp 99.1 F 01/07/18 08:19 Pulse 78 01/07/18 09:02 Resp 20 01/07/18 08:19 BP 113/70 01/07/18 09:02 Pulse Ox 97 01/07/18 08:19 Assessment & Plan - Assessment and Plan (Free Text) Assessment: 72 yo male with history of COPD, CAD, HIV and HLD had right THR on 01/04/18 after failing conservative management of OA of the right hip. Patient did well postop. On 01/06/18 he was transferred to TCU for continuation of management and therapy. 1. Post Right THR pain well controlled continue PT/OT physiatry consult with Dr Mcgraw ortho follow up with Dr Gutierrez 2. CAD asymptomatic on statin, ASA and Carvedilol 3. HIV continue Dolutegravir Sodium 50 mg PO HS and Emtricitabine/Tenofov Alafenam 200- 300 mg PO daily 4. COPD stable DuoNeb Q4 as needed 5. BPH continue Tamsulosin HCl 0.4 mg PO daily 6. DVT prophylaxis on Lovenox 40mg SC daily
--- NOTE | 2018-01-07 14:12 | CP.PCM.PN ---
Subjective - Date & Time of Evaluation Date of Evaluation: 01/07/18 Time of Evaluation: 14:00 - Subjective Subjective: S- pt with minimal post op discomfort Objective - Vital Signs/Intake and Output Vital Signs (last 24 hours): Temp Pulse Resp BP Pulse Ox 99.1 F 78 20 113/70 97 01/07/18 08:19 01/07/18 09:02 01/07/18 08:19 01/07/18 09:02 01/07/18 08:19 - Medications Medications: Current Medications Acetaminophen (Tylenol 325mg Tab) 975 mg PO Q8@0500,1300,2100 [facility] Last Admin: 01/07/18 12:32 Dose: 975 mg Albuterol/Ipratropium (Duoneb 3 Mg/0.5 Mg (3 Ml) Ud) 3 ml INH RQ4 PRN PRN Reason: Shortness of Breath Carvedilol (Coreg) 6.25 mg PO BID [facility] Last Admin: 01/07/18 09:02 Dose: 6.25 mg Enoxaparin Sodium (Lovenox) 40 mg SC DAILY [facility] PRN Reason: Protocol Last Admin: 01/07/18 09:02 Dose: 40 mg Ferrous Sulfate (Feosol) 325 mg PO BID [facility] Last Admin: 01/07/18 09:02 Dose: 325 mg Folic Acid (Folic Acid) 1 mg PO DAILY [facility] Last Admin: 01/07/18 09:02 Dose: 1 mg Furosemide (Lasix) 20 mg PO DAILY [facility] Last Admin: 01/07/18 09:01 Dose: 20 mg Home Med (Patient's Own Medication) 1 unit PO QPM [facility] PRN Reason: Protocol Last Admin: 01/06/18 17:08 Dose: 1 unit Home Med (Emtricitabine/Tenofov Alafenam [Descovy 200-25 Mg Tablet]) 200 mg PO QPM [facility] Last Admin: 01/06/18 17:59 Dose: 200 mg Hydromorphone HCl (Dilaudid) 0.5 mg IVP Q4 PRN PRN Reason: Pain, severe (8-10) Lisinopril (Zestril) 40 mg PO DAILY [facility] Last Admin: 01/07/18 09:02 Dose: 40 mg Oxycodone/Acetaminophen (Percocet 5/325 Mg Tab) 1 tab PO Q4 PRN PRN Reason: Pain, moderate (4-7) Stop: 01/09/18 15:48 Pantoprazole Sodium (Protonix Ec Tab) 20 mg PO DAILY [facility] Last Admin: 01/07/18 09:01 Dose: 20 mg Pravastatin Sodium (Pravachol) 80 mg PO HS [facility] Last Admin: 01/06/18 21:01 Dose: 80 mg Senna/Docusate Sodium (Senokot S 50 Mg-8.6 Mg) 1 tab PO HS [facility] Last Admin: 01/06/18 21:00 Dose: 1 tab Spironolactone (Aldactone) 25 mg PO DAILY [facility] Tamsulosin HCl (Flomax) 0.4 mg PO DAILY [facility] Last Admin: 01/07/18 09:02 Dose: 0.4 mg Vitamin E (Vitamin E) 200 intlu PO DAILY [facility] Last Admin: 01/07/18 09:00 Dose: 200 intlu - Additional Findings Additional findings: Musculoskekltal stance/gait- defrred orthopedcially stable wound benign N/V intact Assessment and Plan - Assessment and Plan (Free Text) Assessment: s/p R THR P- othoppedically stable FULL WEIGHT BEARING WITH CRUTCHES or walker
[2018-01-07] MEDS: DOLUTEGRAVIR SODIUM 50 MG PO SCH (17:27)
[2018-01-07] MEDS: EMTRICITABINE PO SCH (17:27)
[2018-01-07] MEDS: TENOFOV ALAFENAM PO SCH (17:27)
[2018-01-07] MEDS: Pravastatin Sodium 40 MG TAB PO SCH (22:02)
[2018-01-07] MEDS: Docusate-Senna 50 mg-8.6 mg Tab PO SCH (22:05)
[2018-01-08] MEDS: Enoxaparin 40 mg Syringe SC SCH (08:57)
[2018-01-08] MEDS: Vitamin E 100 INTLU SGL PO SCH (08:59)
[2018-01-08] MEDS: Pantoprazole 20 mg EC Tab PO SCH (09:00)
[2018-01-08] MEDS: Oxycodone/Acetaminophen 5/325 mg Tab PO PRN ×3 (09:02→23:05)
--- NOTE | 2018-01-08 09:41 | CP.PCM.PN ---
Subjective - Date & Time of Evaluation Date of Evaluation: 01/08/18 Time of Evaluation: 09:38 - Subjective Subjective: Patient states pain in right hip is well controlled. Denies CP/SOB/dizziness/n/v /numbness/tingling Objective - Vital Signs/Intake and Output Vital Signs (last 24 hours): Temp Pulse Resp BP Pulse Ox 97.7 F 75 20 122/73 99 01/08/18 08:21 01/08/18 08:58 01/08/18 08:21 01/08/18 09:00 01/08/18 08:21 - Medications Medications: Current Medications Acetaminophen (Tylenol 325mg Tab) 975 mg PO Q8@0500,1300,2100 [facility] Last Admin: 01/08/18 05:32 Dose: 975 mg Albuterol/Ipratropium (Duoneb 3 Mg/0.5 Mg (3 Ml) Ud) 3 ml INH RQ4 PRN PRN Reason: Shortness of Breath Carvedilol (Coreg) 6.25 mg PO BID [facility] Last Admin: 01/08/18 08:58 Dose: 6.25 mg Enoxaparin Sodium (Lovenox) 40 mg SC DAILY [facility] PRN Reason: Protocol Last Admin: 01/08/18 08:57 Dose: 40 mg Ferrous Sulfate (Feosol) 325 mg PO BID [facility] Last Admin: 01/08/18 08:58 Dose: 325 mg Folic Acid (Folic Acid) 1 mg PO DAILY [facility] Last Admin: 01/08/18 09:00 Dose: 1 mg Furosemide (Lasix) 20 mg PO DAILY [facility] Last Admin: 01/08/18 09:00 Dose: 20 mg Home Med (Patient's Own Medication) 1 unit PO QPM [facility] PRN Reason: Protocol Last Admin: 01/07/18 17:27 Dose: 1 unit Home Med (Emtricitabine/Tenofov Alafenam [Descovy 200-25 Mg Tablet]) 200 mg PO QPM [facility] Last Admin: 01/07/18 17:27 Dose: 200 mg Hydromorphone HCl (Dilaudid) 0.5 mg IVP Q4 PRN PRN Reason: Pain, severe (8-10) Lisinopril (Zestril) 40 mg PO DAILY [facility] Last Admin: 01/08/18 08:57 Dose: 40 mg Oxycodone/Acetaminophen (Percocet 5/325 Mg Tab) 1 tab PO Q4 PRN PRN Reason: Pain, moderate (4-7) Stop: 01/09/18 15:48 Last Admin: 01/08/18 09:02 Dose: 1 tab Pantoprazole Sodium (Protonix Ec Tab) 20 mg PO DAILY [facility] Last Admin: 01/08/18 09:00 Dose: 20 mg Pravastatin Sodium (Pravachol) 80 mg PO HS [facility] Last Admin: 01/07/18 22:02 Dose: 80 mg Senna/Docusate Sodium (Senokot S 50 Mg-8.6 Mg) 1 tab PO HS [facility] Last Admin: 01/07/18 22:05 Dose: Not Given Spironolactone (Aldactone) 25 mg PO DAILY [facility] Tamsulosin HCl (Flomax) 0.4 mg PO DAILY [facility] Last Admin: 01/08/18 09:00 Dose: 0.4 mg Vitamin E (Vitamin E) 200 intlu PO DAILY [facility] Last Admin: 01/08/18 08:59 Dose: 200 intlu - Extremities Exam Additional comments: right hip: incision intact, no erythema, tiny amount of serous drainage on dressing. New brittni dressing applied. Functioning. +ROM ankle/toes, sensation intact +DP/PT Pulses calves soft NT neg homans Assessment and Plan (1) Status post total hip replacement, right Assessment & Plan: labs in am continue BRITTNI dressing until 12 PT/OT VTE proph on lovenox/SCDs orthopedically stable d/w Dr. Gutierrez, agrees with above Status: Acute
--- NOTE | 2018-01-08 16:59 | CP.PCM.CON ---
History of Present Illness - History of Present Illness History of Present Illness: Dr Mcgraw PMR consultation on alyson Milian orn 1945, who has been admitted to [facility] for post op rehabilitation following a right THR. He has had a left THR in the past by Dr Gutierrez and had subsequently fallen and fracture mid shaft femur and underwent a successful ORIF as well. Post op doing well, minimal pain medications, no numbness no constipation Review of Systems - Constitutional Constitutional: absent: Anorexia, Chills - EENT Eyes: absent: Change in Vision Ears: absent: Ear Discharge, Ear Pain Nose/Mouth/Throat: absent: Nasal Congestion - Cardiovascular Cardiovascular: absent: Chest Pain - Respiratory Respiratory: absent: Dyspnea - Gastrointestinal Gastrointestinal: absent: Belching, Bloating, Constipation - Integumentary Integumentary: Other (right hip incision) - Neurological Neurological: absent: Abnormal Movements, Dizziness, Paresthesias, Radicular Pain Past Patient History - Past Medical History & Family History Past Medical History?: Yes - Past Social History Smoking Status: Former Smoker Drugs: Denies - CARDIAC Hx Cardiac Disorders: Yes Hx Heart Attack: Yes Hx Hypercholesterolemia: Yes Hx Hypertension: Yes Other/Comment: Claimed had 2 heart attacks before - PULMONARY Hx Respiratory Disorders: Yes Hx Chronic Obstructive Pulmonary Disease (COPD): Yes Hx Pneumonia: Yes Other/Comment: scarred lung tissue left lobe, lung resection - NEUROLOGICAL Hx Neurological Disorder: No Hx Transient Ischemic Attacks (TIA): Yes - HEENT Hx HEENT Problems: No Hx Cataracts: Yes (L eye Catatract surgery) - RENAL Hx Chronic Kidney Disease: No - ENDOCRINE/METABOLIC Hx Endocrine Disorders: No - HEMATOLOGICAL/ONCOLOGICAL Hx Blood Disorders: Yes Hx AIDS: Yes Hx Blood Transfusions: Yes Hx Blood Transfusion Reaction: No Hx Human Immunodeficiency Virus (HIV): Yes - INTEGUMENTARY Hx Dermatological Problems: No - MUSCULOSKELETAL/RHEUMATOLOGICAL Hx Musculoskeletal Disorders: Yes Hx Arthritis: Yes Hx Falls: Yes - GASTROINTESTINAL Hx Gastrointestinal Disorders: Yes Hx Bowel Surgery: Yes Hx Diverticulitis: Yes Hx Hemorrhoids: Yes - GENITOURINARY/GYNECOLOGICAL Hx Genitourinary Disorders: No Hx Prostate Problems: Yes (On Flomax) - PSYCHIATRIC Hx Psychophysiologic Disorder: No Hx Emotional Abuse: No Hx Physical Abuse: No Hx Substance Use: No - SURGICAL HISTORY Hx Surgeries: Yes Hx Appendectomy: Yes (AGE 3) Hx Cardiac Catheterization: Yes Hx Orthopedic Surgery: Yes (L Hip replacement 2013) Other/Comment: bowel resection, pneumonectomy left lobe. I&D LEFT HIP. PICC LINE INSERTION. Right HIP replacement 12/2017 - ANESTHESIA Hx Anesthesia: Yes Hx Anesthesia Reactions: No Hx Malignant Hyperthermia: No Meds Allergies/Adverse Reactions: Allergies Allergy/AdvReac Type Severity Reaction Status Date / Time morphine Allergy ITCHING Verified 01/06/18 13:56 morp Allergy Intermediate ITCHING Uncoded 01/06/18 13:56 - Medications Medications: Current Medications Albuterol/Ipratropium (Duoneb 3 Mg/0.5 Mg (3 Ml) Ud) 3 ml INH RQ4 PRN PRN Reason: Shortness of Breath Carvedilol (Coreg) 6.25 mg PO BID [facility] Last Admin: 01/08/18 16:15 Dose: 6.25 mg Enoxaparin Sodium (Lovenox) 40 mg SC DAILY [facility] PRN Reason: Protocol Last Admin: 01/08/18 08:57 Dose: 40 mg Folic Acid (Folic Acid) 1 mg PO DAILY [facility] Last Admin: 01/08/18 09:00 Dose: 1 mg Furosemide (Lasix) 20 mg PO DAILY [facility] Last Admin: 01/08/18 09:00 Dose: 20 mg Home Med (Patient's Own Medication) 1 unit PO QPM [facility] PRN Reason: Protocol Last Admin: 01/07/18 17:27 Dose: 1 unit Home Med (Emtricitabine/Tenofov Alafenam [Descovy 200-25 Mg Tablet]) 200 mg PO QPM [facility] Last Admin: 01/07/18 17:27 Dose: 200 mg Lisinopril (Zestril) 40 mg PO DAILY [facility] Last Admin: 01/08/18 08:57 Dose: 40 mg Oxycodone/Acetaminophen (Percocet 5/325 Mg Tab) 1 tab PO Q4 PRN PRN Reason: Pain, moderate (4-7) Stop: 01/09/18 15:48 Last Admin: 01/08/18 16:13 Dose: 1 tab Pantoprazole Sodium (Protonix Ec Tab) 20 mg PO DAILY [facility] Last Admin: 01/08/18 09:00 Dose: 20 mg Pravastatin Sodium (Pravachol) 80 mg PO HS [facility] Last Admin: 01/07/18 22:02 Dose: 80 mg Senna/Docusate Sodium (Senokot S 50 Mg-8.6 Mg) 1 tab PO [facility] Last Admin: 01/07/18 22:05 Dose: Not Given Spironolactone (Aldactone) 25 mg PO DAILY [facility] Tamsulosin HCl (Flomax) 0.4 mg PO DAILY [facility] Last Admin: 01/08/18 09:00 Dose: 0.4 mg Vitamin E (Vitamin E) 200 intlu PO DAILY [facility] Last Admin: 01/08/18 08:59 Dose: 200 intlu Physical Exam - Constitutional Appears: Non-toxic - Head Exam Head Exam: ATRAUMATIC, NORMAL INSPECTION (loose dentures), NORMOCEPHALIC - Eye Exam Eye Exam: EOMI - ENT Exam ENT Exam: Mucous Membranes Moist - Respiratory Exam Respiratory Exam: NORMAL BREATHING PATTERN - Cardiovascular Exam Cardiovascular Exam: REGULAR RHYTHM - GI/Abdominal Exam GI & Abdominal Exam: absent: Firm, Guarding - Extremities Exam Extremities exam: Negative for: calf tenderness - Neurological Exam Neurological exam: Alert, CN II-XII Intact, Oriented x3 - Psychiatric Exam Psychiatric exam: Normal Affect, Normal Mood - Skin Skin Exam: Warm Results - Vital Signs Recent Vital Signs: Last Vital Signs Temp 98.4 F 01/08/18 15:57 Pulse 83 01/08/18 16:15 Resp 20 01/08/18 15:57 BP 117/57 L 01/08/18 16:15 Pulse Ox 100 01/08/18 15:57 Assessment & Plan - Assessment and Plan (Free Text) Assessment: right THR PT/OT to continue to help increase functional independence Pain: controlled Vascular: no evidence of DVT GI: No evidence of constipation or diarrhea Patient continues to be an excellent TCU rehabilitation candidate and will have continued focused PT, OT and recreational therapy to help facilitate a safe and appropriate d/c plan
[2018-01-08] MEDS: Emtricitabine/Tenofov Alafenam [Descovy 200-25 Mg Tablet] PO SCH ×2 (17:35→17:36)
[2018-01-08] MEDS: DOLUTEGRAVIR SODIUM 50 MG PO SCH (17:35)
[2018-01-08] MEDS: TENOFOV ALAFENAM PO SCH (17:36)
[2018-01-08] MEDS: EMTRICITABINE PO SCH (17:36)
[2018-01-08] MEDS: Pravastatin Sodium 40 MG TAB PO SCH (21:40)
[2018-01-08] MEDS: Docusate-Senna 50 mg-8.6 mg Tab PO SCH (21:41)
[2018-01-09] MEDS: Oxycodone/Acetaminophen 5/325 mg Tab PO PRN ×3 (08:08→18:40)
[2018-01-09] MEDS: Vitamin E 100 INTLU SGL PO SCH (08:09)
[2018-01-09] MEDS: Enoxaparin 40 mg Syringe SC SCH (08:09)
[2018-01-09] MEDS: Pantoprazole 20 mg EC Tab PO SCH (08:15)
--- NOTE | 2018-01-09 14:04 | CP.PCM.PN ---
Subjective - Date & Time of Evaluation Date of Evaluation: 01/09/18 Time of Evaluation: 14:02 - Subjective Subjective: Patient states pain improves everyday. Walking is difficult, but getting better. Denies CP/SOB/dizziness Objective - Vital Signs/Intake and Output Vital Signs (last 24 hours): Temp Pulse Resp BP Pulse Ox 98.1 F 99 H 20 109/67 98 01/09/18 08:29 01/09/18 08:29 01/09/18 08:29 01/09/18 08:29 01/09/18 08:29 - Medications Medications: Current Medications Albuterol/Ipratropium (Duoneb 3 Mg/0.5 Mg (3 Ml) Ud) 3 ml INH RQ4 PRN PRN Reason: Shortness of Breath Carvedilol (Coreg) 6.25 mg PO BID [facility] Last Admin: 01/09/18 08:10 Dose: 6.25 mg Enoxaparin Sodium (Lovenox) 40 mg SC DAILY [facility] PRN Reason: Protocol Last Admin: 01/09/18 08:09 Dose: 40 mg Folic Acid (Folic Acid) 1 mg PO DAILY [facility] Last Admin: 01/09/18 08:10 Dose: 1 mg Furosemide (Lasix) 20 mg PO DAILY [facility] Last Admin: 01/09/18 08:10 Dose: 20 mg Home Med (Patient's Own Medication) 1 unit PO QPM [facility] PRN Reason: Protocol Last Admin: 01/08/18 17:35 Dose: 1 unit Home Med (Emtricitabine/Tenofov Alafenam [Descovy 200-25 Mg Tablet]) 200 mg PO QPM [facility] Last Admin: 01/08/18 17:36 Dose: 200 mg Lisinopril (Zestril) 40 mg PO DAILY [facility] Last Admin: 01/09/18 08:09 Dose: 40 mg Oxycodone/Acetaminophen (Percocet 5/325 Mg Tab) 1 tab PO Q4 PRN PRN Reason: Pain, moderate (4-7) Stop: 01/09/18 15:48 Last Admin: 01/09/18 12:37 Dose: 1 tab Pantoprazole Sodium (Protonix Ec Tab) 20 mg PO DAILY [facility] Last Admin: 01/09/18 08:15 Dose: 20 mg Pravastatin Sodium (Pravachol) 80 mg PO HS [facility] Last Admin: 01/08/18 21:40 Dose: 80 mg Senna/Docusate Sodium (Senokot S 50 Mg-8.6 Mg) 1 tab PO HS [facility] Last Admin: 01/08/18 21:41 Dose: 1 tab Spironolactone (Aldactone) 25 mg PO DAILY [facility] Tamsulosin HCl (Flomax) 0.4 mg PO DAILY [facility] Last Admin: 01/09/18 08:11 Dose: 0.4 mg Vitamin E (Vitamin E) 200 intlu PO DAILY [facility] Last Admin: 01/09/18 08:09 Dose: 200 intlu - Extremities Exam Additional comments: +ROM ankle/toes, sensation intact +DP/PT pulses calves soft NT neg homans incision dry, Brittni intact, thigh soft, swelling imprving Assessment and Plan (1) Status post total hip replacement, right Assessment & Plan: POD#5s/p right THR cont PT/OT VTE proph ortho stable d/w DR. Gutierrez, agrees with above will d/c BRITTNI POD#7 Status: Acute
--- NOTE | 2018-01-09 14:08 | CP.PCM.PN ---
Subjective - Date & Time of Evaluation Date of Evaluation: 01/09/18 Time of Evaluation: 14:07 - Subjective Subjective: Patient seen in PT doing very well able to already have a step through gait with the RW minimal discomfort no sob/cp continue current care Objective - Vital Signs/Intake and Output Vital Signs (last 24 hours): Temp Pulse Resp BP Pulse Ox 98.1 F 99 H 20 109/67 98 01/09/18 08:29 01/09/18 08:29 01/09/18 08:29 01/09/18 08:29 01/09/18 08:29 - Medications Medications: Current Medications Albuterol/Ipratropium (Duoneb 3 Mg/0.5 Mg (3 Ml) Ud) 3 ml INH RQ4 PRN PRN Reason: Shortness of Breath Carvedilol (Coreg) 6.25 mg PO BID [facility] Last Admin: 01/09/18 08:10 Dose: 6.25 mg Enoxaparin Sodium (Lovenox) 40 mg SC DAILY [facility] PRN Reason: Protocol Last Admin: 01/09/18 08:09 Dose: 40 mg Folic Acid (Folic Acid) 1 mg PO DAILY [facility] Last Admin: 01/09/18 08:10 Dose: 1 mg Furosemide (Lasix) 20 mg PO DAILY [facility] Last Admin: 01/09/18 08:10 Dose: 20 mg Home Med (Patient's Own Medication) 1 unit PO QPM [facility] PRN Reason: Protocol Last Admin: 01/08/18 17:35 Dose: 1 unit Home Med (Emtricitabine/Tenofov Alafenam [Descovy 200-25 Mg Tablet]) 200 mg PO QPM [facility] Last Admin: 01/08/18 17:36 Dose: 200 mg Lisinopril (Zestril) 40 mg PO DAILY [facility] Last Admin: 01/09/18 08:09 Dose: 40 mg Oxycodone/Acetaminophen (Percocet 5/325 Mg Tab) 1 tab PO Q4 PRN PRN Reason: Pain, moderate (4-7) Stop: 01/09/18 15:48 Last Admin: 01/09/18 12:37 Dose: 1 tab Pantoprazole Sodium (Protonix Ec Tab) 20 mg PO DAILY [facility] Last Admin: 01/09/18 08:15 Dose: 20 mg Pravastatin Sodium (Pravachol) 80 mg PO HS [facility] Last Admin: 01/08/18 21:40 Dose: 80 mg Senna/Docusate Sodium (Senokot S 50 Mg-8.6 Mg) 1 tab PO [facility] Last Admin: 01/08/18 21:41 Dose: 1 tab Spironolactone (Aldactone) 25 mg PO DAILY [facility] Tamsulosin HCl (Flomax) 0.4 mg PO DAILY [facility] Last Admin: 01/09/18 08:11 Dose: 0.4 mg Vitamin E (Vitamin E) 200 intlu PO DAILY [facility] Last Admin: 01/09/18 08:09 Dose: 200 intlu
[2018-01-09] MEDS: TENOFOV ALAFENAM PO SCH (17:45)
[2018-01-09] MEDS: EMTRICITABINE PO SCH (17:45)
[2018-01-09] MEDS: DOLUTEGRAVIR SODIUM 50 MG PO SCH (17:45)
--- NOTE | 2018-01-09 18:47 | CP.PCM.PN ---
Subjective - Date & Time of Evaluation Date of Evaluation: 01/09/18 Time of Evaluation: 01:15 - Subjective Subjective: Patient seen and examined. Pain tolerable with pain medication post therapy. Objective - Vital Signs/Intake and Output Vital Signs (last 24 hours): Temp Pulse Resp BP Pulse Ox 97.5 F L 82 20 99/74 L 98 01/09/18 16:08 01/09/18 17:46 01/09/18 16:08 01/09/18 17:46 01/09/18 16:08 - Medications Medications: Current Medications Albuterol/Ipratropium (Duoneb 3 Mg/0.5 Mg (3 Ml) Ud) 3 ml INH RQ4 PRN PRN Reason: Shortness of Breath Carvedilol (Coreg) 6.25 mg PO BID [facility] Last Admin: 01/09/18 17:46 Dose: Not Given Enoxaparin Sodium (Lovenox) 40 mg SC DAILY [facility] PRN Reason: Protocol Last Admin: 01/09/18 08:09 Dose: 40 mg Folic Acid (Folic Acid) 1 mg PO DAILY [facility] Last Admin: 01/09/18 08:10 Dose: 1 mg Furosemide (Lasix) 20 mg PO DAILY [facility] Last Admin: 01/09/18 08:10 Dose: 20 mg Home Med (Patient's Own Medication) 1 unit PO QPM [facility] PRN Reason: Protocol Last Admin: 01/09/18 17:45 Dose: 1 unit Home Med (Emtricitabine/Tenofov Alafenam [Descovy 200-25 Mg Tablet]) 200 mg PO QPM [facility] Last Admin: 01/09/18 17:45 Dose: 200 mg Lisinopril (Zestril) 40 mg PO DAILY [facility] Last Admin: 01/09/18 08:09 Dose: 40 mg Oxycodone/Acetaminophen (Percocet 5/325 Mg Tab) 1 tab PO Q4 PRN PRN Reason: Pain, moderate (4-7) Stop: 01/12/18 18:24 Last Admin: 01/09/18 18:40 Dose: 1 tab Pantoprazole Sodium (Protonix Ec Tab) 20 mg PO DAILY [facility] Last Admin: 01/09/18 08:15 Dose: 20 mg Pravastatin Sodium (Pravachol) 80 mg PO HS [facility] Last Admin: 01/08/18 21:40 Dose: 80 mg Senna/Docusate Sodium (Senokot S 50 Mg-8.6 Mg) 1 tab PO HS [facility] Last Admin: 01/08/18 21:41 Dose: 1 tab Spironolactone (Aldactone) 25 mg PO DAILY [facility] Tamsulosin HCl (Flomax) 0.4 mg PO DAILY [facility] Last Admin: 01/09/18 08:11 Dose: 0.4 mg Vitamin E (Vitamin E) 200 intlu PO DAILY [facility] Last Admin: 01/09/18 08:09 Dose: 200 intlu - Constitutional Appears: No Acute Distress - Head Exam Head Exam: ATRAUMATIC - Eye Exam Eye Exam: absent: Scleral icterus - ENT Exam ENT Exam: Mucous Membranes Moist - Neck Exam Neck Exam: absent: Meningismus - Respiratory Exam Respiratory Exam: absent: Rales, Rhonchi, Wheezes, Respiratory Distress - Cardiovascular Exam Cardiovascular Exam: REGULAR RHYTHM, +S1, +S2 - GI/Abdominal Exam GI & Abdominal Exam: Soft. absent: Tenderness - Rectal Exam Rectal Exam: Deferred - Extremities Exam Extremities Exam: absent: Full ROM (limited ROM on right hip) - Back Exam Back Exam: NORMAL INSPECTION - Neurological Exam Neurological Exam: Alert, Oriented x3 - Psychiatric Exam Psychiatric exam: Normal Affect - Skin Skin Exam: Dry, Intact Assessment and Plan - Assessment and Plan (Free Text) Assessment: 72 yo male with history of COPD, CAD, HIV and HLD had right THR on 01/04/18 after failing conservative management of OA of the right hip. Patient did well postop. On 01/06/18 he was transferred to TCU for continuation of management and therapy. 1. Post Right THR pain well controlled continue PT/OT physiatry consult with Dr Mcgraw ortho follow up with Dr Gutierrez 2. CAD asymptomatic on statin, ASA and Carvedilol 3. HIV continue Dolutegravir Sodium 50 mg PO HS and Emtricitabine/Tenofov Alafenam 200- 300 mg PO daily 4. COPD stable DuoNeb Q4 as needed 5. BPH continue Tamsulosin HCl 0.4 mg PO daily 6. DVT prophylaxis on Lovenox 40mg SC daily
[2018-01-09] MEDS: Docusate-Senna 50 mg-8.6 mg Tab PO SCH (21:14)
[2018-01-09] MEDS: Pravastatin Sodium 40 MG TAB PO SCH (21:14)
[2018-01-10] MEDS: Oxycodone/Acetaminophen 5/325 mg Tab PO PRN ×4 (02:34→23:24)
[2018-01-10] MEDS: Pantoprazole 20 mg EC Tab PO SCH (08:12)
[2018-01-10] MEDS: Enoxaparin 40 mg Syringe SC SCH (08:12)
[2018-01-10] MEDS: Vitamin E 100 INTLU SGL PO SCH (08:12)
--- NOTE | 2018-01-10 15:11 | CP.PCM.PN ---
Subjective - Date & Time of Evaluation Date of Evaluation: 01/10/18 Time of Evaluation: 14:00 - Subjective Subjective: Patient seen and examined OOB to chair while in PT. Pain well controlled. Tolerating PT well and able to climb few steps today. No new complaints. Objective - Vital Signs/Intake and Output Vital Signs (last 24 hours): Temp Pulse Resp BP Pulse Ox 98.6 F 83 20 117/70 100 01/10/18 08:00 01/10/18 08:13 01/10/18 08:00 01/10/18 08:13 01/10/18 08:00 - Medications Medications: Current Medications Albuterol/Ipratropium (Duoneb 3 Mg/0.5 Mg (3 Ml) Ud) 3 ml INH RQ4 PRN PRN Reason: Shortness of Breath Carvedilol (Coreg) 6.25 mg PO BID [facility] Last Admin: 01/10/18 08:10 Dose: 6.25 mg Enoxaparin Sodium (Lovenox) 40 mg SC DAILY [facility] PRN Reason: Protocol Last Admin: 01/10/18 08:12 Dose: 40 mg Folic Acid (Folic Acid) 1 mg PO DAILY [facility] Last Admin: 01/10/18 08:12 Dose: 1 mg Furosemide (Lasix) 20 mg PO DAILY [facility] Last Admin: 01/10/18 08:12 Dose: 20 mg Home Med (Patient's Own Medication) 1 unit PO QPM [facility] PRN Reason: Protocol Last Admin: 01/09/18 17:45 Dose: 1 unit Home Med (Emtricitabine/Tenofov Alafenam [Descovy 200-25 Mg Tablet]) 200 mg PO QPM [facility] Last Admin: 01/09/18 17:45 Dose: 200 mg Lisinopril (Zestril) 40 mg PO DAILY [facility] Last Admin: 01/10/18 08:13 Dose: 40 mg Oxycodone/Acetaminophen (Percocet 5/325 Mg Tab) 1 tab PO Q4 PRN PRN Reason: Pain, moderate (4-7) Stop: 01/12/18 18:24 Last Admin: 01/10/18 13:06 Dose: 1 tab Pantoprazole Sodium (Protonix Ec Tab) 20 mg PO DAILY [facility] Last Admin: 01/10/18 08:12 Dose: 20 mg Pravastatin Sodium (Pravachol) 80 mg PO HS [facility] Last Admin: 01/09/18 21:14 Dose: 80 mg Senna/Docusate Sodium (Senokot S 50 Mg-8.6 Mg) 1 tab PO HS [facility] Last Admin: 01/09/18 21:14 Dose: 1 tab Spironolactone (Aldactone) 25 mg PO DAILY [facility] Tamsulosin HCl (Flomax) 0.4 mg PO DAILY [facility] Last Admin: 01/10/18 08:11 Dose: 0.4 mg Vitamin E (Vitamin E) 200 intlu PO DAILY [facility] Last Admin: 01/10/18 08:12 Dose: 200 intlu - Extremities Exam Additional comments: R hip: BRITTNI dressing intact mild swelling, minimal tenderness Sensation intact SP/DP/TN motor intact EHL/FHL/TA/G/Q/HS pedal pulses intact comps soft NT Assessment and Plan (1) Status post right hip replacement Assessment & Plan: POD #6 s/p R PANFILO doing well -PT/OT FWB -DVT ppx -will remove BRITTNI dressing tomorrow -orthopedically stable -above d/w Dr. Gutierrez in agreement Status: Acute
[2018-01-10] MEDS: DOLUTEGRAVIR SODIUM 50 MG PO SCH (17:55)
[2018-01-10] MEDS: EMTRICITABINE PO SCH (17:55)
[2018-01-10] MEDS: TENOFOV ALAFENAM PO SCH (17:55)
--- NOTE | 2018-01-10 18:20 | CP.PCM.PN ---
Subjective - Date & Time of Evaluation Date of Evaluation: 01/10/18 Time of Evaluation: 18:18 - Subjective Subjective: Teodoro continues to do well ambulating with RW improving step through gait pattern + constipation but will manage with Prune juice instead of medications he is nervous to get diarrhea if takes meds Objective - Vital Signs/Intake and Output Vital Signs (last 24 hours): Temp Pulse Resp BP Pulse Ox 98.6 F 83 20 117/70 100 01/10/18 08:00 01/10/18 08:13 01/10/18 08:00 01/10/18 08:13 01/10/18 08:00 - Medications Medications: Current Medications Albuterol/Ipratropium (Duoneb 3 Mg/0.5 Mg (3 Ml) Ud) 3 ml INH RQ4 PRN PRN Reason: Shortness of Breath Carvedilol (Coreg) 6.25 mg PO BID [facility] Enoxaparin Sodium (Lovenox) 40 mg SC DAILY [facility] PRN Reason: Protocol Last Admin: 01/10/18 08:12 Dose: 40 mg Folic Acid (Folic Acid) 1 mg PO DAILY [facility] Last Admin: 01/10/18 08:12 Dose: 1 mg Furosemide (Lasix) 20 mg PO DAILY [facility] Last Admin: 01/10/18 08:12 Dose: 20 mg Home Med (Patient's Own Medication) 1 unit PO QPM [facility] PRN Reason: Protocol Last Admin: 01/10/18 17:55 Dose: 1 unit Home Med (Emtricitabine/Tenofov Alafenam [Descovy 200-25 Mg Tablet]) 200 mg PO QPM [facility] Last Admin: 01/10/18 17:55 Dose: 200 mg Lisinopril (Zestril) 40 mg PO DAILY [facility] Last Admin: 01/10/18 08:13 Dose: 40 mg Oxycodone/Acetaminophen (Percocet 5/325 Mg Tab) 1 tab PO Q4 PRN PRN Reason: Pain, moderate (4-7) Stop: 01/12/18 18:24 Last Admin: 01/10/18 13:06 Dose: 1 tab Pantoprazole Sodium (Protonix Ec Tab) 20 mg PO DAILY [facility] Last Admin: 01/10/18 08:12 Dose: 20 mg Pravastatin Sodium (Pravachol) 80 mg PO HS [facility] Last Admin: 01/09/18 21:14 Dose: 80 mg Senna/Docusate Sodium (Senokot S 50 Mg-8.6 Mg) 1 tab PO HS [facility] Last Admin: 01/09/18 21:14 Dose: 1 tab Spironolactone (Aldactone) 25 mg PO DAILY [facility] Tamsulosin HCl (Flomax) 0.4 mg PO DAILY [facility] Last Admin: 01/10/18 08:11 Dose: 0.4 mg Vitamin E (Vitamin E) 200 intlu PO DAILY [facility] Last Admin: 01/10/18 08:12 Dose: 200 intlu
[2018-01-10] MEDS: Pravastatin Sodium 40 MG TAB PO SCH (22:18)
[2018-01-10] MEDS: Docusate-Senna 50 mg-8.6 mg Tab PO SCH (22:18)
[2018-01-10 23:33] LABS: URINE BACTERIA RARE (<OCC); URINE BILIRUBIN NEGATIVE (NEGATIVE); URINE BLOOD NEGATIVE (NEGATIVE); URINE CLARITY CLEAR (Clear); URINE COLOR YELLOW (YELLOW); URINE GLUCOSE (UA) NEG (Normal); URINE LEUKOCYTE ESTERASE NEG Leu/uL (Negative); URINE PROTEIN NEGATIVE (NEGATIVE)
[2018-01-11] MEDS: Oxycodone/Acetaminophen 5/325 mg Tab PO PRN ×3 (08:07→19:54)
[2018-01-11] MEDS: Enoxaparin 40 mg Syringe SC SCH (08:11)
[2018-01-11] MEDS: Vitamin E 100 INTLU SGL PO SCH (08:12)
[2018-01-11] MEDS: Pantoprazole 20 mg EC Tab PO SCH (08:12)
--- NOTE | 2018-01-11 09:48 | RAD ---
Date of service: 01/10/2018 PROCEDURE: CHEST RADIOGRAPH, 1 VIEW HISTORY: diagnostic COMPARISON: Comparison chest dated 01/04/2018 FINDINGS: LUNGS: Poor inspiration with low lung volumes, crowded bronchovascular markings and mild bibasilar atelectasis. Again noted are postoperative changes left tim thorax with metallic clips in the hilar region fibrosis/scarring extending superiorly into the left apex associate with left apical pleural thickening. Scarring changes and clips also seen in the left lung base with chronic pleural thickening. Thoracotomy changes on altered. Mild right basilar atelectasis and or scarring is well. PLEURA: As above. No pneumothorax or pleural fluid seen. CARDIOVASCULAR: Normal. OSSEOUS STRUCTURES: No significant abnormalities. VISUALIZED UPPER ABDOMEN: Normal. OTHER FINDINGS: None. IMPRESSION: Poor inspiration with low lung volumes, crowded bronchovascular markings and mild bibasilar atelectasis. Again noted are postoperative changes left tim thorax with metallic clips in the hilar region fibrosis/scarring extending superiorly into the left apex associate with left apical pleural thickening. Scarring changes and clips also seen in the left lung base with chronic pleural thickening. Thoracotomy changes on altered. Mild right basilar atelectasis and or scarring is well.
--- NOTE | 2018-01-11 11:37 | CP.PCM.PN ---
Subjective - Date & Time of Evaluation Date of Evaluation: 01/11/18 Time of Evaluation: 11:30 - Subjective Subjective: Patient was seen and examined at bedside. He states that he feels well today. He is complaining of constipation today, but does not want to take any laxatives because they caused him to have severe diarrhea in the past. No other complaints at present. States his therapies are going well. Objective - Vital Signs/Intake and Output Vital Signs (last 24 hours): Temp Pulse Resp BP Pulse Ox 98.4 F 79 20 118/62 97 01/11/18 10:00 01/11/18 10:00 01/11/18 10:00 01/11/18 10:00 01/11/18 10:00 - Medications Medications: Current Medications Albuterol/Ipratropium (Duoneb 3 Mg/0.5 Mg (3 Ml) Ud) 3 ml INH RQ4 PRN PRN Reason: Shortness of Breath Carvedilol (Coreg) 6.25 mg PO BID [facility] Last Admin: 01/11/18 08:08 Dose: 6.25 mg Enoxaparin Sodium (Lovenox) 40 mg SC DAILY [facility] PRN Reason: Protocol Last Admin: 01/11/18 08:11 Dose: 40 mg Folic Acid (Folic Acid) 1 mg PO DAILY [facility] Last Admin: 01/11/18 08:10 Dose: 1 mg Furosemide (Lasix) 20 mg PO DAILY [facility] Last Admin: 01/11/18 08:10 Dose: 20 mg Home Med (Patient's Own Medication) 1 unit PO QPM [facility] PRN Reason: Protocol Last Admin: 01/10/18 17:55 Dose: 1 unit Home Med (Emtricitabine/Tenofov Alafenam [Descovy 200-25 Mg Tablet]) 200 mg PO QPM [facility] Last Admin: 01/10/18 17:55 Dose: 200 mg Lisinopril (Zestril) 40 mg PO DAILY [facility] Last Admin: 01/11/18 08:13 Dose: 40 mg Oxycodone/Acetaminophen (Percocet 5/325 Mg Tab) 1 tab PO Q4 PRN PRN Reason: Pain, moderate (4-7) Stop: 01/12/18 18:24 Last Admin: 01/11/18 08:07 Dose: 1 tab Pantoprazole Sodium (Protonix Ec Tab) 20 mg PO DAILY [facility] Last Admin: 01/11/18 08:12 Dose: 20 mg Pravastatin Sodium (Pravachol) 80 mg PO HS [facility] Last Admin: 01/10/18 22:18 Dose: 80 mg Senna/Docusate Sodium (Senokot S 50 Mg-8.6 Mg) 1 tab PO HS [facility] Last Admin: 01/10/18 22:18 Dose: 1 tab Spironolactone (Aldactone) 25 mg PO DAILY [facility] Tamsulosin HCl (Flomax) 0.4 mg PO DAILY [facility] Last Admin: 01/11/18 08:09 Dose: 0.4 mg Vitamin E (Vitamin E) 200 intlu PO DAILY [facility] Last Admin: 01/11/18 08:12 Dose: 200 intlu - Additional Findings Additional findings: Physical exam: Constitutional- cooperative, awake, alert Head- NCAT, PERRL Eye- PERRL, EOMI ENT- normal exam, MMM. Neck- normal inspection, supple, no JVD Respiratory- CTAB, no wheezes rales rhonchi Cardiovascular- RRR, +S1, +S2 no MRG GI/Abdominal- normal bowel sounds, soft, no mass, no hsm Skin- warm, dry Extremities Exam- + Limited right hip ROM. normal capillary refill, normal inspection Neurological Exam- alert, awake, oriented Psych- normal mood, normal affect Assessment and Plan - Assessment and Plan (Free Text) Plan: 72 yo male with history of COPD, CAD, HIV and HLD had right THR on 01/04/18 after failing conservative management of OA of the right hip. Patient did well postop. On 01/06/18 he was transferred to TCU for continuation of management and therapy. 1. Post Right THR pain well controlled continue PT/OT physiatry consult with Dr Mcgraw ortho follow up with Dr Gutierrez 2. CAD asymptomatic on statin, ASA and Carvedilol 3. HIV continue Dolutegravir Sodium 50 mg PO HS and Emtricitabine/Tenofov Alafenam 200- 300 mg PO daily 4. COPD stable DuoNeb Q4 as needed 5. BPH continue Tamsulosin HCl 0.4 mg PO daily 6. DVT prophylaxis on Lovenox 40mg SC daily
[2018-01-11] MEDS: EMTRICITABINE PO SCH (17:15)
[2018-01-11] MEDS: TENOFOV ALAFENAM PO SCH (17:15)
[2018-01-11] MEDS: DOLUTEGRAVIR SODIUM 50 MG PO SCH (17:15)
[2018-01-11] MEDS: Docusate-Senna 50 mg-8.6 mg Tab PO SCH (21:35)
[2018-01-11] MEDS: Pravastatin Sodium 40 MG TAB PO SCH (21:36)
[2018-01-12] MEDS: Oxycodone/Acetaminophen 5/325 mg Tab PO PRN ×4 (02:55→21:02)
[2018-01-12 06:33] LABS: HEMOGLOBIN 9.5 g/dL (12.0-18.0); MEAN CELL VOLUME 108.7 fl (80.0-94.0); MEAN CORPUSCULAR HEMOGLOBIN 37.8 pg (27.0-31.0); MEAN CORPUSCULAR HGB CONC 34.8 g/dL (33.0-37.0); RBC 2.5 Mil/uL (4.40-5.90); RED CELL DISTRIBUTION WIDTH 13.1 % (11.5-14.5); WHITE BLOOD COUNT 4.4 K/uL (4.8-10.8)
[2018-01-12 06:53] LABS: BLOOD UREA NITROGEN 14 mg/dl (9-20); CALCIUM 8.6 mg/dL (8.4-10.2); GFR AFRICAN-AMERICAN > 60; GFR NON-AFRICAN AMERICAN > 60
[2018-01-12] MEDS: Pantoprazole 20 mg EC Tab PO SCH (08:07)
[2018-01-12] MEDS: Enoxaparin 40 mg Syringe SC SCH (08:07)
[2018-01-12] MEDS: Vitamin E 100 INTLU SGL PO SCH (08:08)
--- NOTE | 2018-01-12 12:41 | CP.PCM.PN ---
Subjective - Date & Time of Evaluation Date of Evaluation: 01/12/18 Time of Evaluation: 12:40 - Subjective Subjective: patient seen in the room right hip CDI, no strike through pain is well controlled ambulating >100' with RW stable continue current care Objective - Vital Signs/Intake and Output Vital Signs (last 24 hours): Temp Pulse Resp BP Pulse Ox 97.3 F L 85 20 118/80 100 01/12/18 08:01 01/12/18 12:30 01/12/18 08:01 01/12/18 12:30 01/12/18 08:01 - Medications Medications: Current Medications Albuterol/Ipratropium (Duoneb 3 Mg/0.5 Mg (3 Ml) Ud) 3 ml INH RQ4 PRN PRN Reason: Shortness of Breath Carvedilol (Coreg) 6.25 mg PO BID [facility] Last Admin: 01/12/18 08:05 Dose: Not Given Enoxaparin Sodium (Lovenox) 40 mg SC DAILY [facility] PRN Reason: Protocol Last Admin: 01/12/18 08:07 Dose: 40 mg Folic Acid (Folic Acid) 1 mg PO DAILY [facility] Last Admin: 01/12/18 08:06 Dose: 1 mg Furosemide (Lasix) 20 mg PO DAILY [facility] Last Admin: 01/12/18 08:06 Dose: 20 mg Home Med (Patient's Own Medication) 1 unit PO QPM [facility] PRN Reason: Protocol Last Admin: 01/11/18 17:15 Dose: 1 unit Home Med (Emtricitabine/Tenofov Alafenam [Descovy 200-25 Mg Tablet]) 200 mg PO QPM [facility] Last Admin: 01/11/18 17:15 Dose: 200 mg Lisinopril (Zestril) 40 mg PO DAILY [facility] Last Admin: 01/12/18 12:30 Dose: 40 mg Oxycodone/Acetaminophen (Percocet 5/325 Mg Tab) 1 tab PO Q4 PRN PRN Reason: Pain, moderate (4-7) Stop: 01/12/18 18:24 Last Admin: 01/12/18 12:22 Dose: 1 tab Pantoprazole Sodium (Protonix Ec Tab) 20 mg PO DAILY [facility] Last Admin: 01/12/18 08:07 Dose: 20 mg Pravastatin Sodium (Pravachol) 80 mg PO HS [facility] Last Admin: 01/11/18 21:36 Dose: 80 mg Senna/Docusate Sodium (Senokot S 50 Mg-8.6 Mg) 1 tab PO HS [facility] Last Admin: 01/11/18 21:35 Dose: 1 tab Spironolactone (Aldactone) 25 mg PO DAILY [facility] Tamsulosin HCl (Flomax) 0.4 mg PO DAILY [facility] Last Admin: 01/12/18 08:06 Dose: 0.4 mg Vitamin E (Vitamin E) 200 intlu PO DAILY [facility] Last Admin: 01/12/18 08:08 Dose: 200 intlu - Labs Labs: 01/12/18 06:21 01/12/18 06:21
--- NOTE | 2018-01-12 14:24 | CP.PCM.PN ---
Subjective - Date & Time of Evaluation Date of Evaluation: 01/12/18 Time of Evaluation: 14:23 - Subjective Subjective: Patiet states pain continues to improve. No new complants. Objective - Vital Signs/Intake and Output Vital Signs (last 24 hours): Temp Pulse Resp BP Pulse Ox 97.3 F L 85 20 118/80 100 01/12/18 08:01 01/12/18 12:30 01/12/18 08:01 01/12/18 12:30 01/12/18 08:01 - Medications Medications: Current Medications Albuterol/Ipratropium (Duoneb 3 Mg/0.5 Mg (3 Ml) Ud) 3 ml INH RQ4 PRN PRN Reason: Shortness of Breath Carvedilol (Coreg) 6.25 mg PO BID [facility] Last Admin: 01/12/18 08:05 Dose: Not Given Enoxaparin Sodium (Lovenox) 40 mg SC DAILY [facility] PRN Reason: Protocol Last Admin: 01/12/18 08:07 Dose: 40 mg Folic Acid (Folic Acid) 1 mg PO DAILY [facility] Last Admin: 01/12/18 08:06 Dose: 1 mg Furosemide (Lasix) 20 mg PO DAILY [facility] Last Admin: 01/12/18 08:06 Dose: 20 mg Home Med (Patient's Own Medication) 1 unit PO QPM [facility] PRN Reason: Protocol Last Admin: 01/11/18 17:15 Dose: 1 unit Home Med (Emtricitabine/Tenofov Alafenam [Descovy 200-25 Mg Tablet]) 200 mg PO QPM [facility] Last Admin: 01/11/18 17:15 Dose: 200 mg Lisinopril (Zestril) 40 mg PO DAILY [facility] Last Admin: 01/12/18 12:30 Dose: 40 mg Oxycodone/Acetaminophen (Percocet 5/325 Mg Tab) 1 tab PO Q4 PRN PRN Reason: Pain, moderate (4-7) Stop: 01/12/18 18:24 Last Admin: 01/12/18 12:22 Dose: 1 tab Pantoprazole Sodium (Protonix Ec Tab) 20 mg PO DAILY [facility] Last Admin: 01/12/18 08:07 Dose: 20 mg Pravastatin Sodium (Pravachol) 80 mg PO HS [facility] Last Admin: 01/11/18 21:36 Dose: 80 mg Senna/Docusate Sodium (Senokot S 50 Mg-8.6 Mg) 1 tab PO HS [facility] Last Admin: 01/11/18 21:35 Dose: 1 tab Spironolactone (Aldactone) 25 mg PO DAILY [facility] Tamsulosin HCl (Flomax) 0.4 mg PO DAILY [facility] Last Admin: 01/12/18 08:06 Dose: 0.4 mg Vitamin E (Vitamin E) 200 intlu PO DAILY [facility] Last Admin: 01/12/18 08:08 Dose: 200 intlu - Labs Labs: 01/12/18 06:21 01/12/18 06:21 - Extremities Exam Additional comments: +ROM ankle/toes, sensationintact +DP/PT pulses calves osft NT neghomans incision intact no erythema, dry Assessment and Plan (1) Status post total hip replacement, right Assessment & Plan: s/p Right THR progressing well cont PT/OT/VTE proph d/w DR. Gutierrez, agrees with above Status: Acute
[2018-01-12] MEDS: TENOFOV ALAFENAM PO SCH (17:06)
[2018-01-12] MEDS: EMTRICITABINE PO SCH (17:06)
[2018-01-12] MEDS: DOLUTEGRAVIR SODIUM 50 MG PO SCH (17:06)
[2018-01-12] MEDS ORDERED: Oxycodone/Acetaminophen 5/325 mg Tab PO PRN (20:54)
[2018-01-12] MEDS: Docusate-Senna 50 mg-8.6 mg Tab PO SCH (22:27)
[2018-01-12] MEDS: Pravastatin Sodium 40 MG TAB PO SCH (22:27)
[2018-01-13] MEDS: Enoxaparin 40 mg Syringe SC SCH (08:13)
[2018-01-13] MEDS: Pantoprazole 20 mg EC Tab PO SCH (08:14)
[2018-01-13] MEDS: Vitamin E 100 INTLU SGL PO SCH (08:15)
[2018-01-13] MEDS: Oxycodone/Acetaminophen 5/325 mg Tab PO PRN ×4 (08:15→23:17)
--- NOTE | 2018-01-13 13:00 | CP.PCM.PN ---
Subjective - Date & Time of Evaluation Date of Evaluation: 01/13/18 Time of Evaluation: 11:00 - Subjective Subjective: S- p[t OOB and markedly improved/comfortable Objective - Vital Signs/Intake and Output Vital Signs (last 24 hours): Temp Pulse Resp BP Pulse Ox 98.6 F 81 20 128/66 97 01/13/18 08:31 01/13/18 08:31 01/13/18 08:31 01/13/18 08:31 01/13/18 08:31 - Medications Medications: Current Medications Albuterol/Ipratropium (Duoneb 3 Mg/0.5 Mg (3 Ml) Ud) 3 ml INH RQ4 PRN PRN Reason: Shortness of Breath Carvedilol (Coreg) 6.25 mg PO BID [facility] Last Admin: 01/13/18 08:11 Dose: 6.25 mg Enoxaparin Sodium (Lovenox) 40 mg SC DAILY [facility] PRN Reason: Protocol Last Admin: 01/13/18 08:13 Dose: 40 mg Folic Acid (Folic Acid) 1 mg PO DAILY [facility] Last Admin: 01/13/18 08:12 Dose: 1 mg Furosemide (Lasix) 20 mg PO DAILY [facility] Last Admin: 01/13/18 08:13 Dose: 20 mg Home Med (Patient's Own Medication) 1 unit PO QPM [facility] PRN Reason: Protocol Last Admin: 01/12/18 17:06 Dose: 1 unit Home Med (Emtricitabine/Tenofov Alafenam [Descovy 200-25 Mg Tablet]) 200 mg PO QPM [facility] Last Admin: 01/12/18 17:06 Dose: 200 mg Lisinopril (Zestril) 40 mg PO DAILY [facility] Last Admin: 01/13/18 08:15 Dose: 40 mg Oxycodone/Acetaminophen (Percocet 5/325 Mg Tab) 1 tab PO Q4 PRN PRN Reason: Pain, moderate (4-7) Stop: 01/15/18 20:55 Last Admin: 01/13/18 08:15 Dose: 1 tab Oxycodone/Acetaminophen (Percocet 5/325 Mg Tab) 2 tab PO Q4 PRN PRN Reason: Pain, severe (8-10) Stop: 01/15/18 20:55 Pantoprazole Sodium (Protonix Ec Tab) 20 mg PO DAILY [facility] Last Admin: 01/13/18 08:14 Dose: 20 mg Pravastatin Sodium (Pravachol) 80 mg PO HS [facility] Last Admin: 01/12/18 22:27 Dose: 80 mg Senna/Docusate Sodium (Senokot S 50 Mg-8.6 Mg) 1 tab PO HS [facility] Last Admin: 01/12/18 22:27 Dose: 1 tab Spironolactone (Aldactone) 25 mg PO DAILY [facility] Tamsulosin HCl (Flomax) 0.4 mg PO DAILY [facility] Last Admin: 01/13/18 08:12 Dose: 0.4 mg Vitamin E (Vitamin E) 200 intlu PO DAILY [facility] Last Admin: 01/13/18 08:15 Dose: 200 intlu - Labs Labs: 01/12/18 06:21 01/12/18 06:21 - Additional Findings Additional findings: Objective stance/gait defrred pt OOB R thigh wound benign n/v intact Assessment and Plan - Assessment and Plan (Free Text) Assessment: A- s/p succesful R THR P- orthopedcially stable physio to continue
[2018-01-13] MEDS: DOLUTEGRAVIR SODIUM 50 MG PO SCH (17:29)
[2018-01-13] MEDS: TENOFOV ALAFENAM PO SCH (17:29)
[2018-01-13] MEDS: EMTRICITABINE PO SCH (17:29)
[2018-01-13] MEDS: Docusate-Senna 50 mg-8.6 mg Tab PO SCH (21:37)
[2018-01-13] MEDS: Pravastatin Sodium 40 MG TAB PO SCH (21:37)
[2018-01-14] MEDS: Oxycodone/Acetaminophen 5/325 mg Tab PO PRN ×4 (03:25→19:43)
[2018-01-14] MEDS: Vitamin E 100 INTLU SGL PO SCH (08:09)
[2018-01-14] MEDS: Pantoprazole 20 mg EC Tab PO SCH (08:11)
[2018-01-14] MEDS: Enoxaparin 40 mg Syringe SC SCH (09:38)
[2018-01-14] MEDS: EMTRICITABINE PO SCH (17:45)
[2018-01-14] MEDS: TENOFOV ALAFENAM PO SCH (17:45)
[2018-01-14] MEDS: DOLUTEGRAVIR SODIUM 50 MG PO SCH (17:45)
[2018-01-14] MEDS: Pravastatin Sodium 40 MG TAB PO SCH (21:16)
[2018-01-14] MEDS: Docusate-Senna 50 mg-8.6 mg Tab PO SCH (21:17)
[2018-01-15] MEDS: Oxycodone/Acetaminophen 5/325 mg Tab PO PRN ×3 (02:54→17:02)
[2018-01-15] MEDS: Enoxaparin 40 mg Syringe SC SCH (08:13)
[2018-01-15] MEDS: Pantoprazole 20 mg EC Tab PO SCH (08:15)
[2018-01-15] MEDS: Vitamin E 100 INTLU SGL PO SCH (08:15)
--- NOTE | 2018-01-15 09:42 | CP.PCM.PN ---
Subjective - Date & Time of Evaluation Date of Evaluation: 01/15/18 Time of Evaluation: 09:00 - Subjective Subjective: Patient seen and examined OOB to chair working with PT. Pain well controlled. Was able to climb a few steps with PT during the weekend. No new complaints. Objective - Vital Signs/Intake and Output Vital Signs (last 24 hours): Temp Pulse Resp BP Pulse Ox 97.9 F 68 20 110/65 98 01/15/18 08:17 01/15/18 08:17 01/15/18 08:17 01/15/18 08:17 01/15/18 08:17 - Medications Medications: Current Medications Albuterol/Ipratropium (Duoneb 3 Mg/0.5 Mg (3 Ml) Ud) 3 ml INH RQ4 PRN PRN Reason: Shortness of Breath Carvedilol (Coreg) 6.25 mg PO BID [facility] Last Admin: 01/15/18 08:14 Dose: Not Given Enoxaparin Sodium (Lovenox) 40 mg SC DAILY [facility] PRN Reason: Protocol Last Admin: 01/15/18 08:13 Dose: 40 mg Folic Acid (Folic Acid) 1 mg PO DAILY [facility] Last Admin: 01/15/18 08:14 Dose: 1 mg Furosemide (Lasix) 20 mg PO DAILY [facility] Last Admin: 01/15/18 08:14 Dose: 20 mg Home Med (Patient's Own Medication) 1 unit PO QPM [facility] PRN Reason: Protocol Last Admin: 01/14/18 17:45 Dose: 1 unit Home Med (Emtricitabine/Tenofov Alafenam [Descovy 200-25 Mg Tablet]) 200 mg PO QPM [facility] Last Admin: 01/14/18 17:45 Dose: 200 mg Lisinopril (Zestril) 40 mg PO DAILY [facility] Last Admin: 01/15/18 08:15 Dose: 40 mg Oxycodone/Acetaminophen (Percocet 5/325 Mg Tab) 1 tab PO Q4 PRN PRN Reason: Pain, moderate (4-7) Stop: 01/15/18 20:55 Last Admin: 01/15/18 07:35 Dose: 1 tab Oxycodone/Acetaminophen (Percocet 5/325 Mg Tab) 2 tab PO Q4 PRN PRN Reason: Pain, severe (8-10) Stop: 01/15/18 20:55 Pantoprazole Sodium (Protonix Ec Tab) 20 mg PO DAILY [facility] Last Admin: 01/15/18 08:15 Dose: 20 mg Pravastatin Sodium (Pravachol) 80 mg PO HS [facility] Last Admin: 01/14/18 21:16 Dose: 80 mg Senna/Docusate Sodium (Senokot S 50 Mg-8.6 Mg) 1 tab PO HS [facility] Last Admin: 01/14/18 21:17 Dose: Not Given Spironolactone (Aldactone) 25 mg PO DAILY [facility] Tamsulosin HCl (Flomax) 0.4 mg PO DAILY [facility] Last Admin: 01/15/18 08:15 Dose: 0.4 mg Vitamin E (Vitamin E) 200 intlu PO DAILY [facility] Last Admin: 01/15/18 08:15 Dose: 200 intlu - Labs Labs: 18 06:21 01/12/18 06:21 - Extremities Exam Additional comments: R hip: Dry dressings CDI mild swelling, no tenderness Sensation intact SP/DP/TN motor intact EHL/FHL/TA/G/Q/HS pedal pulses intact comps soft NT Assessment and Plan (1) Status post right hip replacement Assessment & Plan: POD #11 s/p R PANFILO doing well -PT/OT FWB -DVT ppx -dressings changed this AM -orthopedically stable -above d/w Dr. Gutierrez in agreement Status: Acute
[2018-01-15] MEDS: TENOFOV ALAFENAM PO SCH (17:03)
[2018-01-15] MEDS: DOLUTEGRAVIR SODIUM 50 MG PO SCH (17:03)
[2018-01-15] MEDS: EMTRICITABINE PO SCH (17:03)
--- NOTE | 2018-01-15 20:04 | CP.PCM.PN ---
Subjective - Date & Time of Evaluation Date of Evaluation: 01/15/18 Time of Evaluation: 20:04 - Subjective Subjective: patient seen in the room, doing very well ambulating on the real stairs as well pain is well controlled right hip CDI continue current care set for 01/17/18 d/c Objective - Vital Signs/Intake and Output Vital Signs (last 24 hours): Temp Pulse Resp BP Pulse Ox 98.8 F 68 20 131/65 96 01/15/18 19:43 01/15/18 19:43 01/15/18 19:43 01/15/18 19:43 01/15/18 19:43 - Medications Medications: Current Medications Albuterol/Ipratropium (Duoneb 3 Mg/0.5 Mg (3 Ml) Ud) 3 ml INH RQ4 PRN PRN Reason: Shortness of Breath Carvedilol (Coreg) 6.25 mg PO BID [facility] Last Admin: 01/15/18 17:03 Dose: 6.25 mg Enoxaparin Sodium (Lovenox) 40 mg SC DAILY [facility] PRN Reason: Protocol Last Admin: 01/15/18 08:13 Dose: 40 mg Folic Acid (Folic Acid) 1 mg PO DAILY [facility] Last Admin: 01/15/18 08:14 Dose: 1 mg Furosemide (Lasix) 20 mg PO DAILY [facility] Last Admin: 01/15/18 08:14 Dose: 20 mg Home Med (Patient's Own Medication) 1 unit PO QPM [facility] PRN Reason: Protocol Last Admin: 01/15/18 17:03 Dose: 1 unit Home Med (Emtricitabine/Tenofov Alafenam [Descovy 200-25 Mg Tablet]) 200 mg PO QPM [facility] Last Admin: 01/15/18 17:03 Dose: 200 mg Lisinopril (Zestril) 40 mg PO DAILY [facility] Last Admin: 01/15/18 08:15 Dose: 40 mg Oxycodone/Acetaminophen (Percocet 5/325 Mg Tab) 1 tab PO Q4 PRN PRN Reason: Pain, moderate (4-7) Stop: 01/15/18 20:55 Last Admin: 01/15/18 17:02 Dose: 1 tab Oxycodone/Acetaminophen (Percocet 5/325 Mg Tab) 2 tab PO Q4 PRN PRN Reason: Pain, severe (8-10) Stop: 01/15/18 20:55 Pantoprazole Sodium (Protonix Ec Tab) 20 mg PO DAILY [facility] Last Admin: 01/15/18 08:15 Dose: 20 mg Pravastatin Sodium (Pravachol) 80 mg PO HS [facility] Last Admin: 01/14/18 21:16 Dose: 80 mg Senna/Docusate Sodium (Senokot S 50 Mg-8.6 Mg) 1 tab PO HS [facility] Last Admin: 01/14/18 21:17 Dose: Not Given Spironolactone (Aldactone) 25 mg PO DAILY [facility] Tamsulosin HCl (Flomax) 0.4 mg PO DAILY [facility] Last Admin: 01/15/18 08:15 Dose: 0.4 mg Vitamin E (Vitamin E) 200 intlu PO DAILY [facility] Last Admin: 01/15/18 08:15 Dose: 200 intlu - Labs Labs: 01/12/18 06:21 01/12/18 06:21
[2018-01-15] MEDS: Pravastatin Sodium 40 MG TAB PO SCH (22:20)
[2018-01-15] MEDS: Docusate-Senna 50 mg-8.6 mg Tab PO SCH (22:20)
[2018-01-16] MEDS ORDERED: Oxycodone/Acetaminophen 5/325 mg Tab PO PRN (00:33)
[2018-01-16] MEDS: Oxycodone/Acetaminophen 5/325 mg Tab PO PRN ×3 (00:44→20:31)
[2018-01-16] MEDS: Vitamin E 100 INTLU SGL PO SCH (08:03)
[2018-01-16] MEDS: Pantoprazole 20 mg EC Tab PO SCH (08:04)
[2018-01-16] MEDS: Enoxaparin 40 mg Syringe SC SCH (08:11)
--- NOTE | 2018-01-16 11:18 | CP.PCM.PN ---
Subjective - Date & Time of Evaluation Date of Evaluation: 01/16/18 Time of Evaluation: 11:16 - Subjective Subjective: Patient seen and examined working with PT on ambulatory bicycle. No pain at this time. No new complaints. Objective - Vital Signs/Intake and Output Vital Signs (last 24 hours): Temp Pulse Resp BP Pulse Ox 97.7 F 67 20 100/57 L 100 01/16/18 08:14 01/16/18 08:14 01/16/18 08:14 01/16/18 08:14 01/16/18 08:14 - Medications Medications: Current Medications Albuterol/Ipratropium (Duoneb 3 Mg/0.5 Mg (3 Ml) Ud) 3 ml INH RQ4 PRN PRN Reason: Shortness of Breath Carvedilol (Coreg) 6.25 mg PO BID [facility] Last Admin: 01/16/18 08:10 Dose: Not Given Enoxaparin Sodium (Lovenox) 40 mg SC DAILY [facility] PRN Reason: Protocol Last Admin: 01/16/18 08:11 Dose: 40 mg Folic Acid (Folic Acid) 1 mg PO DAILY [facility] Last Admin: 01/16/18 08:03 Dose: 1 mg Furosemide (Lasix) 20 mg PO DAILY [facility] Last Admin: 01/16/18 08:09 Dose: Not Given Home Med (Patient's Own Medication) 1 unit PO QPM [facility] PRN Reason: Protocol Last Admin: 01/15/18 17:03 Dose: 1 unit Home Med (Emtricitabine/Tenofov Alafenam [Descovy 200-25 Mg Tablet]) 200 mg PO QPM [facility] Last Admin: 01/15/18 17:03 Dose: 200 mg Lisinopril (Zestril) 40 mg PO DAILY [facility] Last Admin: 01/16/18 08:10 Dose: Not Given Oxycodone/Acetaminophen (Percocet 5/325 Mg Tab) 1 tab PO Q4 PRN PRN Reason: Pain, moderate (4-7) Stop: 01/19/18 00:33 Last Admin: 01/16/18 07:56 Dose: 1 tab Oxycodone/Acetaminophen (Percocet 5/325 Mg Tab) 2 tab PO Q4 PRN PRN Reason: Pain, severe (8-10) Stop: 01/19/18 00:34 Pantoprazole Sodium (Protonix Ec Tab) 20 mg PO DAILY [facility] Last Admin: 01/16/18 08:04 Dose: 20 mg Pravastatin Sodium (Pravachol) 80 mg PO HS [facility] Last Admin: 01/15/18 22:20 Dose: 80 mg Senna/Docusate Sodium (Senokot S 50 Mg-8.6 Mg) 1 tab PO HS [facility] Last Admin: 01/15/18 22:20 Dose: 1 tab Spironolactone (Aldactone) 25 mg PO DAILY [facility] Tamsulosin HCl (Flomax) 0.4 mg PO DAILY [facility] Last Admin: 01/16/18 08:03 Dose: 0.4 mg Vitamin E (Vitamin E) 200 intlu PO DAILY [facility] Last Admin: 01/16/18 08:03 Dose: 200 intlu - Labs Labs: 01/12/18 06:21 01/12/18 06:21 - Extremities Exam Additional comments: R hip: Dry dressings CDI mild swelling, no tenderness Sensation intact SP/DP/TN motor intact EHL/FHL/TA/G/Q/HS pedal pulses intact comps soft NT Assessment and Plan (1) Status post right hip replacement Assessment & Plan: POD #12 s/p R PANFILO doing well -PT/OT FWB -DVT ppx, ASA 81 mg BID x 2 weeks for d/c -orthopedically stable for discharge tomorrow -f/w in office with Dr. Gutierrez within 7-10 days, call for appt -above d/w Dr. Gutierrez in agreement Status: Acute
[2018-01-16] MEDS: DOLUTEGRAVIR SODIUM 50 MG PO SCH (17:09)
[2018-01-16] MEDS: EMTRICITABINE PO SCH (17:10)
[2018-01-16] MEDS: TENOFOV ALAFENAM PO SCH (17:10)
--- NOTE | 2018-01-16 17:12 | CP.PCM.PN ---
Subjective - Date & Time of Evaluation Date of Evaluation: 01/16/18 Time of Evaluation: 11:27 - Subjective Subjective: right hip pain tolerable no cp no sob moving bowels well Objective - Vital Signs/Intake and Output Vital Signs (last 24 hours): Temp Pulse Resp BP Pulse Ox 99.3 F 85 20 119/72 97 01/16/18 15:59 01/16/18 15:59 01/16/18 15:59 01/16/18 15:59 01/16/18 15:59 - Medications Medications: Current Medications Albuterol/Ipratropium (Duoneb 3 Mg/0.5 Mg (3 Ml) Ud) 3 ml INH RQ4 PRN PRN Reason: Shortness of Breath Carvedilol (Coreg) 6.25 mg PO BID [facility] Last Admin: 01/16/18 08:10 Dose: Not Given Enoxaparin Sodium (Lovenox) 40 mg SC DAILY [facility] PRN Reason: Protocol Last Admin: 01/16/18 08:11 Dose: 40 mg Folic Acid (Folic Acid) 1 mg PO DAILY [facility] Last Admin: 01/16/18 08:03 Dose: 1 mg Furosemide (Lasix) 20 mg PO DAILY [facility] Last Admin: 01/16/18 08:09 Dose: Not Given Home Med (Patient's Own Medication) 1 unit PO QPM [facility] PRN Reason: Protocol Last Admin: 01/15/18 17:03 Dose: 1 unit Home Med (Emtricitabine/Tenofov Alafenam [Descovy 200-25 Mg Tablet]) 200 mg PO QPM [facility] Last Admin: 01/15/18 17:03 Dose: 200 mg Lisinopril (Zestril) 40 mg PO DAILY [facility] Last Admin: 01/16/18 08:10 Dose: Not Given Oxycodone/Acetaminophen (Percocet 5/325 Mg Tab) 1 tab PO Q4 PRN PRN Reason: Pain, moderate (4-7) Stop: 01/19/18 00:33 Last Admin: 01/16/18 07:56 Dose: 1 tab Oxycodone/Acetaminophen (Percocet 5/325 Mg Tab) 2 tab PO Q4 PRN PRN Reason: Pain, severe (8-10) Stop: 01/19/18 00:34 Pantoprazole Sodium (Protonix Ec Tab) 20 mg PO DAILY [facility] Last Admin: 01/16/18 08:04 Dose: 20 mg Pravastatin Sodium (Pravachol) 80 mg PO HS [facility] Last Admin: 01/15/18 22:20 Dose: 80 mg Senna/Docusate Sodium (Senokot S 50 Mg-8.6 Mg) 1 tab PO HS [facility] Last Admin: 01/15/18 22:20 Dose: 1 tab Spironolactone (Aldactone) 25 mg PO DAILY [facility] Tamsulosin HCl (Flomax) 0.4 mg PO DAILY [facility] Last Admin: 01/16/18 08:03 Dose: 0.4 mg Vitamin E (Vitamin E) 200 intlu PO DAILY [facility] Last Admin: 01/16/18 08:03 Dose: 200 intlu - Labs Labs: 01/12/18 06:21 01/12/18 06:21 - Constitutional Appears: Well, Non-toxic - Head Exam Head Exam: ATRAUMATIC, NORMAL INSPECTION - Eye Exam Eye Exam: Normal appearance - ENT Exam ENT Exam: Mucous Membranes Moist - Respiratory Exam Respiratory Exam: Clear to Ausculation Bilateral, NORMAL BREATHING PATTERN - Cardiovascular Exam Cardiovascular Exam: REGULAR RHYTHM, +S1, +S2 - GI/Abdominal Exam GI & Abdominal Exam: Soft, Normal Bowel Sounds. absent: Tenderness - Extremities Exam Additional comments: right hip non tender - Neurological Exam Neurological Exam: Alert, Awake, Oriented x3 Neuro motor strength exam: Left Upper Extremity: 5, Right Upper Extremity: 5, Left Lower Extremity: 5, Right Lower Extremity: 5 - Psychiatric Exam Psychiatric exam: Normal Affect - Skin Skin Exam: Normal Color Assessment and Plan - Assessment and Plan (Free Text) Assessment: 72 yo male with history of COPD, CAD, HIV and HLD had right THR on 01/04/18 after failing conservative management of OA of the right hip. Patient did well postop. On 01/06/18 he was transferred to TCU for continuation of management and therapy. 1. Post Right THR pain well controlled continue PT/OT physiatry consult with Dr Mcgraw ortho consult with Dr Gutierrez 2. CAD asymptomatic on statin, ASA and Carvedilol 3. HIV continue Dolutegravir Sodium 50 mg PO HS and Emtricitabine/Tenofov Alafenam 200- 300 mg PO daily 4. COPD stable DuoNeb Q4 as needed 5. BPH continue Tamsulosin HCl 0.4 mg PO daily 6. DVT prophylaxis on Lovenox 40mg SC daily
[2018-01-16] MEDS: Docusate-Senna 50 mg-8.6 mg Tab PO SCH (21:13)
[2018-01-16] MEDS: Pravastatin Sodium 40 MG TAB PO SCH (21:13)
[2018-01-17] MEDS: Oxycodone/Acetaminophen 5/325 mg Tab PO PRN (06:13)
[2018-01-17] MEDS: Vitamin E 100 INTLU SGL PO SCH (08:21)
[2018-01-17] MEDS: Pantoprazole 20 mg EC Tab PO SCH (08:23)
[2018-01-17 08:29] VITALS: BP 124/71; PULSE 77
[2018-01-17 08:39] VITALS: TEMP 98.1; O2SAT 98
--- NOTE | 2018-01-17 11:06 | CP.PCM.DIS ---
Provider - Provider Date of Admission: 01/06/18 14:05 Attending physician: Carolyn Brewster DO Primary care physician: Chaevz Gutierrez III, MD Time Spent in preparation of Discharge (in minutes): 35 Hospital Course - Lab Results Lab Results: Micro Results 01/10/18 23:55 Blood-Venous Blood Culture - Final NO GROWTH AFTER 5 DAYS 01/10/18 23:55 Blood-Venous Gram Stain - Final TEST NOT PERFORMED 01/10/18 22:55 Urine Urine Culture - Final No Growth (<1,000 CFU/ML) Most Recent Lab Values WBC 4.4 K/uL (4.8-10.8) L 01/12/18 06:21 RBC 2.50 Mil/uL (4.40-5.90) L 01/12/18 06:21 Hgb 9.5 g/dL (12.0-18.0) L 01/12/18 06:21 Hct 27.2 % (35.0-51.0) L 01/12/18 06:21 MCV 108.7 fl (80.0-94.0) H 01/12/18 06:21 MCH 37.8 pg (27.0-31.0) H 01/12/18 06:21 MCHC 34.8 g/dL (33.0-37.0) 01/12/18 06:21 RDW 13.1 % (11.5-14.5) 01/12/18 06:21 Plt Count 193 K/uL (130-400) 01/12/18 06:21 Sodium 133 mmol/l (132-148) 01/12/18 06:21 Potassium 4.4 MMOL/L (3.6-5.0) 01/12/18 06:21 Chloride 100 mmol/L (98-107) 01/12/18 06:21 Carbon Dioxide 25 mmol/L (22-30) 01/12/18 06:21 Anion Gap 12 (10-20) 01/12/18 06:21 BUN 14 mg/dl (9-20) 01/12/18 06:21 Creatinine 1.1 mg/dl (0.8-1.5) 01/12/18 06:21 Est GFR ( Amer) > 60 01/12/18 06:21 Est GFR (Non-Af Amer) > 60 01/12/18 06:21 Random Glucose 105 mg/dL (75-110) 01/12/18 06:21 Calcium 8.6 mg/dL (8.4-10.2) 01/12/18 06:21 Urine Color Yellow (YELLOW) 01/10/18 22:55 Urine Clarity Clear (Clear) 01/10/18 22:55 Urine pH 6.0 (5.0-8.0) 01/10/18 22:55 Ur Specific [place] 1.012 (1.003-1.030) 01/10/18 22:55 Urine Protein Negative mg/dL (NEGATIVE) 01/10/18 22:55 Urine Glucose (UA) Neg mg/dL (Normal) 01/10/18 22:55 Urine Ketones Negative mg/dL (NEGATIVE) 01/10/18 22:55 Urine Blood Negative (NEGATIVE) 01/10/18 22:55 Urine Nitrate Negative (NEGATIVE) 01/10/18 22:55 Urine Bilirubin Negative (NEGATIVE) 01/10/18 22:55 Urine Urobilinogen 4.0 mg/dL (0.2-1.0) 01/10/18 22:55 Ur Leukocyte Esterase Neg Melanie/uL (Negative) 01/10/18 22:55 Urine RBC (Auto) 4 /hpf (0-3) H 01/10/18 22:55 Urine Microscopic WBC < 1 /hpf (0-5) 01/10/18 22:55 Urine Bacteria Rare (<OCC) 01/10/18 22:55 Hyaline Casts 3-5 /hpf (0-2) H 01/10/18 22:55 - Hospital Course Hospital Course: 72 yo male with history of COPD, CAD, HIV and HLD had right THR on 01/04/18 after failing conservative management of OA of the right hip. Patient did well postop. On 01/06/18 he was transferred to TCU for continuation of management and therapy he did well and was discharged today on 01/17. 1. Post Right THR pain well controlled given script for percocet x 5 days only continue PT/OT at home ortho follow with Dr Gutierrez 2. CAD asymptomatic on statin, ASA and Carvedilol 3. HIV continue Dolutegravir Sodium 50 mg PO HS and Emtricitabine/Tenofov Alafenam 200- 300 mg PO daily 4. COPD stable albuterol as needed 5. BPH continue Tamsulosin HCl 0.4 mg PO daily 6. Per ORTHO they want patient aspirin 81 mg po bid until they recommend going back to once a day Discharge Exam - Head Exam Head Exam: ATRAUMATIC, NORMAL INSPECTION Discharge Plan - Discharge Medications Prescriptions: Aspirin [Adult Low Dose Aspirin EC] 81 mg PO BID #60 tablet. oxyCODONE/Acetaminophen [Percocet 5/325 mg Tab] 1 tab PO Q8 #12 tab - Follow Up Plan Condition: GOOD Disposition: HOME/ ROUTINE Instructions: Total Hip Replacement (DC) Referrals: Chavez Gutierrez III, MD [Primary Care Provider] -
== END 2018-01-17 13:20 | disposition home or self-care (01) | DRG 559 ==
LOC: H.TCU 14:05
PROVIDERS: ADMIT Student in an Organized Health Care Education/Training Program; ATTEND Student in an Organized Health Care Education/Training Program
PROC: F08Z1FZ Dressing Techniques Treatment using Assistive, Adaptive, Supportive or Protective Equipment (ICD-10-PCS; principal; 2018-01-06)
PROC: F07Z9FZ Gait Training/Functional Ambulation Treatment using Assistive, Adaptive, Supportive or Protective Equipment (ICD-10-PCS; 2018-01-06)
PROC: F07Z8FZ Transfer Training Treatment using Assistive, Adaptive, Supportive or Protective Equipment (ICD-10-PCS; 2018-01-06)
PROC: F07Z5ZZ Bed Mobility Treatment (ICD-10-PCS; 2018-01-06)
PROC: F07L6ZZ Therapeutic Exercise Treatment of Musculoskeletal System - Lower Back / Lower Extremity (ICD-10-PCS; 2018-01-06)
DX: Z47.1 Aftercare following joint replacement surgery (principal); B20 Human immunodeficiency virus [HIV] disease; Z96.643 Presence of artificial hip joint, bilateral; J44.9 Chronic obstructive pulmonary disease, unspecified; I25.10 Atherosclerotic heart disease of native coronary artery without angina pectoris; E78.5 Hyperlipidemia, unspecified; Z87.891 Personal history of nicotine dependence; E78.00 Pure hypercholesterolemia, unspecified; N40.0 Benign prostatic hyperplasia without lower urinary tract symptoms; Z86.73 Personal history of transient ischemic attack (TIA), and cerebral infarction without residual deficits; I10 Essential (primary) hypertension; Z88.5 Allergy status to narcotic agent; K59.00 Constipation, unspecified